=== PATIENT | female | born 1965 | race Caucasian/White ===

== ENCOUNTER → 2022-09-04 15:19 | Outpatient (REF) | payer OTHER, SELFPAY ==
--- NOTE | 2022-09-04 15:25 | CA_ITS ---
Transthoracic Echocardiogram Patient (Last, First, Middle): Nilsa Leung, Gender: Female Date of : 1965 Age: 57 Procedure Date: 09/04/2022 Procedure Type: Transthoracic Echocardiogram Location: OP Height: 162.56 cm Weight: 68.95 kg BSA: 1.74 m2 Heart Rate: bpm BP: 142 / 86 mmHg Web Pressman: DANIEL Referring MD: Fuad Wallis MD Symptoms: R07.2 - Precordial pain Study Quality: Adequate ECG Rhythm: Sinus Conclusions: - The left ventricular systolic function is normal. The calculated ejection fraction is 62% by biplane method. - No obvious valvular pathology seen on this study. Findings Left Ventricle Normal left ventricular cavity size. The left ventricular systolic function is normal. The calculated ejection fraction is 62% by biplane method. There is no evidence of regional wall motion abnormalities. Diastolic function is normal for age. There is mild septal and mild basal asymmetric hypertrophy. LV peak GLS -18.7%. Right Ventricle Normal right ventricular cavity size and systolic function. Atria Both atria are normal in size. Aortic Valve There is a normal trileaflet aortic valve. There is no aortic valve stenosis. There is no aortic valve regurgitation. Mitral Valve The mitral valve appears normal. There is trace mitral valve regurgitation. There is no mitral valve stenosis. Pulmonic Valve The pulmonic valve is likely normal. Tricuspid Valve Normal tricuspid valve structure. There is trace tricuspid valve regurgitation. There is no evidence of pulmonary hypertension. Great Vessels The aortic annulus, sinuses of valsalva, and asc aorta are normal in size. Venous The inferior vena cava is normal in size and collapses greater than 50% with inspiration. Pericardium/Pleural There is no evidence of pericardial effusion. Prior Study Comparison No prior study available for comparison. Recommendations, Care & Conclusions No obvious valvular pathology seen on this study. Measurements 2D Linear Measurements IVSd: 1.03 0.6-0.9/0.6-1.0 cm LVIDd: 3.93 3.9-5.3/4.2-5.9 cm LVIDd Index: 2.26 2.4-3.2/2.2-3.1 cm/m2 LVIDs: 2.93 2.0-3.6 cm LVPWd: 1.00 0.7-1.1 cm LA Diam: 3.10 2.7-3.8/3.0-4.0 cm LAIDs Index: 1.78 1.5-2.3 cm/m2 LV Mass: 157.05 67-162/88-224 g LV Mass Index: 90.26 43-95/49-115 g/m2 LVOT Diam: 1.80 3.0+(-)1.3 cm 2D Systolic Function EF 4C: 60.10 >55% EF 2C: 61.80 >55% EF BiP: 61.60 >55% Mitral Valve MV Pk E: 0.82 MV PK A: 0.97 MV Decel Time: 235.00 E/A: 0.80 E'Lateral: 9.90 E'Medial: 7.62 E/E' Med: 10.70 E/E' Lat: 8.30 PHT: 69.00 MVA PHT: 3.19 Decel [place]: 3.49 Aortic Valve AoV Pk Cameron: 1.46 AoV Mn Cameron: 0.98 AoV VTI: 0.35 AoV Pk Grad: 9.00 Aov Mn Grad: 4.00 JL Cont.VTI: 1.89 LVOT LVOT Pk Cameron: 1.16 LVOT Mn Cameron: 0.81 LVOT VTI: 0.26 LVOT Pk Grad: 5.00 LVOT Mn Grad: 3.00 LVOT Diam: 1.80 LVOT Area: 2.54 Diastolic Function MV Pk E: 0.82 MV Pk A: 0.97 E/A: 0.80 E'Medial: 7.62 E/E' Med: 10.70 E' Laterial: 9.90 E/E' Lat: 8.30 Right Ventricle TAPSE (mm): 27.30 TVS' Cameron: 12.30 Tricuspid Valve TR Pk Cameron: 1.66 TR Pk Grad: 11.00 RA Press: 3.00 RVSP: 14.00 Great Vessels Aorta Sinus of Valsalva: 2.96 2.0-3.[address] [place]: 2.19 1.7-3.4 cm Ao Asc: 3.10 2.1-3.4 cm Ao Arch: 2.90 Updated in Other Vendor System with Status of Final Fuad Wallis MD electronically signed on 09/05/2022 8:44:01 AM with status of Final
== END ==
LOC: HO.CARD 15:19
PROVIDERS: PCP Physician Assistant Medical; Visit Provider Internal Medicine
DX: R07.2 Precordial pain (principal)
CPT/HCPCS: 93306; 93356

== ENCOUNTER → 2022-09-05 11:15 | Outpatient (REF) | payer OTHER, SELFPAY ==
--- NOTE | 2022-09-05 11:18 | CA_ITS ---
Acquisition Time: 2022-09-05 11:25:30 Total Exercise Time: 00:12:46 Test Indications: precordial pain Medications: Protocol: DIMITRIS Max HR: 160 BPM 96% of Pred: 165 BPM Max BP: 144/072 mmHG Max Work Load: 14.9 METS Exercise stress test with exercise 12 min 46 sec of Dimitris protocol, acheiving 100% MPHR, without anginals sounding symptoms, with isolated PVC in recovery only, with normotensive response to exercise, with artifact at peak exercise, without EKG changes meeting criteria for ischemia in recovery. Echo images obtained by tech at rest and immediate post peak exercise. Definity contrast used. Test reviewed with Dr Wallis. Referred By: Fuad Wallis Overread By: DARIA DOAN
== END ==
LOC: HO.CARD 11:15
PROVIDERS: PCP Physician Assistant Medical; Visit Provider Internal Medicine
DX: R07.2 Precordial pain (principal)
CPT/HCPCS: 93005; 93350; Q9957

== ENCOUNTER 2022-09-26 14:21 | Outpatient (REF) | payer OTHER, SELFPAY ==
[2022-09-26 16:06] LABS: Anion Gap 13 (12-20); Blood Urea Nitrogen 16 mg/dL (9-16); Calcium 9.4 mg/dL (8.4-10.2); Carbon Dioxide 28 mmol/L (22-29); Chloride 103 mmol/L (96-108); Estimated Glomerular Filt Rate > 60; Glucose Random 81 mg/dL (60-115); Potassium 4.5 mmol/L (3.3-5.1); Sodium 139 mmol/L (135-145)
== END 2022-09-26 14:22 | disposition home or self-care (01) ==
LOC: HO.LAB 14:21
PROVIDERS: PCP Physician Assistant Medical; Visit Provider Internal Medicine
DX: R07.2 Precordial pain (principal)
CPT/HCPCS: 36415; 80048

== ENCOUNTER 2022-10-09 10:35 | Outpatient (REF) | payer OTHER, SELFPAY ==
--- NOTE | ~2022-10-09 | XR_ITS ---
EXAMINATION: XR PELVIS CLINICAL INFORMATION: M25.559 - Pain in unspecified hip COMPARISON: None TECHNIQUE: AP view of the pelvis. FINDINGS: No fracture, dislocation, destructive process. The SI joints and pubis show no diastases. Bowel gas unremarkable. There are osteoarthritic changes left hip with hip joint narrowing and mild subchondral sclerosis. No erosive change. There are osteophytes at base femoral head. Right hip is unremarkable. XR/XR pelvis 1-2V IMPRESSION: Osteoarthritis left hip.
== END 2022-10-09 10:36 | disposition home or self-care (01) ==
LOC: HO.HOSX 10:35
PROVIDERS: Visit Provider Orthopaedic Surgery
DX: M16.12 Unilateral primary osteoarthritis, left hip (principal)
CPT/HCPCS: 72170

== ENCOUNTER 2022-12-18 14:28 | Outpatient (REF) | payer OTHER, SELFPAY ==
--- NOTE | ~2022-12-18 | MM_ITS ---
EXAMINATION: MM SCREENING DIGITAL BREAST TOMOSYNTHESIS, BILATERAL CLINICAL INFORMATION: Screening. Asymptomatic. The lifetime risk of breast cancer based on the Tyrer-Cuzick Model is 9.8%. COMPARISON: Mammography: 11/21/2021 and studies dating back to 09/30/2019. TECHNIQUE: Digital breast tomosynthesis is performed in both the craniocaudal and mediolateral oblique views along with computer-aided detection (CAD). Synthesized 2D images are generated from the tomosynthesis. FINDINGS: The breasts are extremely dense, which lowers the sensitivity of mammography (ACR BI-RADS breast composition Category d). There appears be a region of increased density without suspicious microcalcifications about the superior aspect of the left breast on mediolateral oblique projection. No specific mass is appreciated; however, the density is more prominent and spot compression film as well as 90 degree mediolateral view is recommended to ensure no underlying mass is present. There is a stable parenchymal pattern of the right breast. MM/MM tomosynthesis screening BI IMPRESSION: Increasing density superior aspect of the left breast for further evaluation as described. ASSESSMENT: BI-RADS 0: Incomplete - Need Additional Imaging Evaluation RECOMMENDATION: 1. Additional views of the left breast. 2. Targeted ultrasound if warranted after review of the additional views. 3. Radiology department staff will contact the patient for additional imaging. This patient's information was entered into a reminder system with a target due date for their next mammogram.
== END 2022-12-18 14:29 | disposition home or self-care (01) ==
LOC: HO.MAMMO 14:28
PROVIDERS: PCP Physician Assistant Medical; Visit Provider Physician Assistant Medical
DX: Z12.31 Encounter for screening mammogram for malignant neoplasm of breast (principal)
CPT/HCPCS: 77063; 77067

== ENCOUNTER → 2022-12-25 09:02 | Outpatient (BNVA) | payer OTHER, SELFPAY | PROVIDERS: PCP Physician Assistant Medical; Referring Provider Physician Assistant Medical; Visit Provider Internal Medicine | DX: Z13.89 Encounter for screening for other disorder (principal) ==

== ENCOUNTER 2022-12-26 12:58 | Outpatient (REF) | payer OTHER, SELFPAY ==
--- NOTE | ~2022-12-26 | MM_ITS ---
EXAMINATION: MM DIAGNOSTIC DIGITAL BREAST TOMOSYNTHESIS, LEFT CLINICAL INFORMATION: Question increasing density superior aspect of the left breast COMPARISON: Mammography: December 18, 2022 and studies dating back to September 30, 2019 TECHNIQUE: Digital breast tomosynthesis is performed. 2D images are generated from the tomosynthesis. The following views are obtained: 90 degree mediolateral view and spot compression mediolateral oblique view of the left breast. FINDINGS: The breasts are extremely dense, which lowers the sensitivity of mammography (ACR BI-RADS breast composition Category d). Additional views show no significant mass, architectural abnormality, or abnormal calcifications. Appearance is similar to prior studies. Results are provided to the patient at time of visit by the technologist. MM/MM tomosynthesis added views L IMPRESSION: No mammographic evidence of malignancy. ASSESSMENT: BI-RADS 1: Negative RECOMMENDATION: Routine annual mammography screening due in 12 months. This patient's information was entered into a reminder system with a target due date for their next mammogram.
== END 2022-12-26 12:59 | disposition home or self-care (01) ==
LOC: HO.MAMMO 12:58
PROVIDERS: Visit Provider Physician Assistant Medical
DX: R92.8 Other abnormal and inconclusive findings on diagnostic imaging of breast (principal)
CPT/HCPCS: 77061; 77065

== ENCOUNTER 2023-03-16 12:30 | Outpatient (REF) | payer OTHER, SELFPAY ==
[2023-03-16 14:22] LABS: Alanine Aminotransferase 24 U/L (0-31); Albumin Level 4.3 g/dL (3.5-5.0); Alkaline Phosphatase 54 U/L (39-117); Aspartate Amino Transferase 30 U/L (5-31); Bilirubin Direct 0.2 mg/dL (0.0-0.5); Bilirubin Total 0.9 mg/dL (0.0-1.0); Cholesterol 187 mg/dL; HDL Cholesterol 69 mg/dL; LDL Cholesterol Calculated 108 mg/dl; Total Protein 6.8 g/dL (6.5-8.0); Triglycerides 50 mg/dL
== END 2023-03-16 12:31 | disposition home or self-care (01) ==
LOC: HO.LAB 12:30
PROVIDERS: PCP Physician Assistant Medical; Visit Provider Internal Medicine
DX: E78.5 Hyperlipidemia, unspecified (principal); I25.10 Atherosclerotic heart disease of native coronary artery without angina pectoris
CPT/HCPCS: 36415; 80061; 80076

== ENCOUNTER 2023-06-12 09:25 | Outpatient (AMB) | payer OTHER, SELFPAY ==
--- NOTE | 2023-06-12 09:22 | MHC.OFFVIS ---
Intake Intake Visit Reasons: OV-Left hip pain injection Intake Note: Nilsa is a 58 year old who presents today for a follow up of her left hip OA. She was last sent for a DEXA scan, she reports that she did not get this can done. Patient reports that she has been having increased pain over the last few months. She has pain with sitting, specifically prolonged sitting. Her pain has been affecting her knee and lower back now. Ibuprofen has been helping. Allergies Penicillins Allergy (Intermediate, Verified 12/25/22 09:06) Hives tramadol Adverse Reaction (Intermediate, Verified 12/25/22 09:06) Hives HPI OV-Left hip pain injection HPI Details [place] is a 58 year old woman with left hip OA who presents with complaints of [ ]. She works for the [employer]. She continues to have pain with daily and weight-bearing activity, which is now worse with prolonged sitting activities. She says her pain is deep hip and groin but is now causing pain in her knee and lower back. She stays active, and finds relief or increased pain depending on the exercises she perform. She says Ibuprofen is no longer helping her. At her last appointment a DEXA scan was ordered but she says she did not complete this scan. She says she does spin classes for exercise and is able to walk 4-5 miles a day before having to stop. She works for the [employer] and says she has to climb 5 flights of stairs every day to get to her office, there is no elevator access. 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 She has good motion but sharp reproduceable pain with hip internal rotation Psych Appearance: grossly normal Affect: normal affect Attitude: cooperative Results Reviewed Results Reviewed: I personally reviewed relevant radiographs. Moderate left hip OA Assessment & Plan Assessment & Plan (1) Arthritis of left hip: Code(s): M16.12 - Unilateral primary osteoarthritis, left hip Plan: This is a 58 year old woman with moderate left hip OA. She has pain with daily and weight-bearing activity, worse at night when lying on her side, and localized in the groin. She stays active with exercise, mostly prolonged ambulation or stationary cycling, but says this causes her increased pain at the end of the day. She denies any prior treatment. I discussed her diagnosis and treatment options. I recommend hip arthroplasty when she feels that the quality of her life is severely diminished. In the meantime activity as tolerated. Injections can be considered. She will let me know how and if she would like to proceed with any of the above options. Plan Prepped for Gokul Desouza MD by Jeremi Hargrove, medical coding auditor, on 06/12/23. Coding Level of Care Code Est Pt Level 4 (62836) Diagnoses Arthritis of left hip M16.12
== END 2023-06-12 10:00 | disposition home or self-care (01) ==
PROVIDERS: PCP Physician Assistant Medical; Visit Provider Orthopaedic Surgery
DX: M16.12 Unilateral primary osteoarthritis, left hip (principal)
CPT/HCPCS: 99214

== ENCOUNTER → 2023-06-12 09:25 | Outpatient (BNVA) | payer OTHER, SELFPAY | PROVIDERS: PCP Physician Assistant Medical; Visit Provider Orthopaedic Surgery ==

== ENCOUNTER 2023-06-23 11:22 | Outpatient (AMB) | payer OTHER, SELFPAY ==
--- NOTE | 2023-06-23 11:39 | A.OFFVIS_ITS ---
Intake Vital Signs 06/23/23 11:47 Height 5 ft 4 in Weight 159 lb BMI 27.3 Intake Visit Reasons: OV- LT hip eval, surgery discussion Intake Note: Nilsa 58 yr old female presents today for a second opinion for her left hip pain. She describes her pain as sharp and severe in nature. Most of the pain is located within the lateral and anterior aspects of her left hip. She has tried Tylenol and anti-inflammatory medicines which gave her minimal relief. Her pain has gotten worse over the last few years in spite of continued non operative treatments. She has done physical therapy which aggravated her pain. The patient has difficulty walking even short distances because of her pain. At this point her left hip pain is interfering with her activities of daily living and her ability to sleep well through the night. Allergies Penicillins Allergy (Intermediate, Verified 06/23/23 11:47) Hives tramadol Adverse Reaction (Intermediate, Verified 06/23/23 11:47) Hives Medication List - Last Reconciled 06/23/23 by Bear Bell MD multivitamin 1 tab PO DAILY nitroglycerin 0.4 mg sublingual Q5M PRN valacyclovir 1,000 mg PO DAILY PRN PFSH Medical History (Updated 06/23/23 @ 12:31 by Bear Bell MD) Atherosclerotic cardiovascular disease Surgical History No pertinent past surgical history Family History Father Heart attack Lung cancer History of quadruple bypass Mother Afib H/O heart artery stent S/P ablation of atrial fibrillation Social History Alcohol intake: current Alcohol intake frequency: a few times a month Patient Tobacco Use Status: Never used Tobacco Current occupational status: employed 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 Exam Vital Signs: BMI result Body Mass Index 27.3 Const Other: Well-nourished well-developed very friendly female awake alert and oriented x3 in no acute distress Extrem Other: Bilateral lower extremity examination shows good capillary refill, no skin lesions noted, normal sensation light touch Left hip examination shows decreased range of motion when compared to her right hip, pain with range of motion, tenderness over her bursa, no overlying skin lesions Office Procedures Joint Injection/Drain Joint Injection/Drain Primary Site: other (Left hip greater trochanteric bursa) Prep: site was prepped using aseptic technique Injected: 40 mg of and Kenalog Procedure: The patient tolerated the procedure well Coding - Large joint Procedure code (CPT) selection complete Results Reviewed Results Reviewed: 06/23/23 12:10 Lidocaine HCl 2 % MPF [Xylocaine 2 % MPF] 5 ml .ROUTE .STK-MED ONE Triamcinolone Acetonide [Kenalog-40] 40 mg .ROUTE .STK-MED ONE X-rays of the patient's left hip show severe joint space narrowing, subchondral sclerosis, osteophyte formation, no acute bony abnormalities Assessment & Plan Assessment & Plan (1) Trochanteric bursitis, left hip: Code(s): M70.62 - Trochanteric bursitis, left hip (2) Arthritis of left hip: Code(s): M16.12 - Unilateral primary osteoarthritis, left hip Plan Ms. Leung presents with left hip pain due to severe degenerative joint disease as well as greater trochanteric bursitis. I had a lengthy discussion with the patient regarding the treatment options. The risks and benefits of a left hip bursa cortisone injection were discussed at length with the patient. The patient wished to proceed. She tolerated the injection well. I also gave her a prescription for a Medrol Dosepak should her symptoms not improve over the next week. If the patient does not get lasting relief from the injection and Medrol Dosepak she is considering undergoing left total hip replacement surgery later this year or early next year. She will contact my office to pick a surgery date if she chooses to do so. Otherwise she will follow-up on an as- needed basis. Feel free to call me at any time should questions regarding her orthopedic management arise. I spent 22 minutes in reviewing the patient's records and imaging studies, seeing the patient and documenting in the medical record. Orders: Orders AMB Joint Injection/Aspiration Today M70.62 - Trochanteric bursitis, left hip Medications: New methylprednisolone (Medrol ([place])) PO PER PKG DIR 21 ea 0RF Coding Level of Care Code Est Pt Level 2 (47814) Diagnoses Trochanteric bursitis, left hip M70.62 Arthritis of left hip M16.12 CPT Codes Coding - Large joint: 73344 - Large joint ([id number])
[2023-06-23 11:47] VITALS: BMI 27.3
== END 2023-06-23 12:30 | disposition home or self-care (01) ==
PROVIDERS: PCP Physician Assistant Medical; Visit Provider Orthopaedic Surgery
DX: M70.62 Trochanteric bursitis, left hip (principal); M16.12 Unilateral primary osteoarthritis, left hip
CPT/HCPCS: 20610; 99212

== ENCOUNTER → 2023-06-23 11:22 | Outpatient (BNVA) | payer OTHER, SELFPAY | PROVIDERS: PCP Physician Assistant Medical; Visit Provider Orthopaedic Surgery | DX: M70.62 Trochanteric bursitis, left hip (principal); M16.12 Unilateral primary osteoarthritis, left hip | CPT/HCPCS: 20610; J3301 ==

== ENCOUNTER 2023-07-27 07:38 | Outpatient (REF) | payer OTHER, SELFPAY ==
[2023-07-27 08:49] LABS: Alanine Aminotransferase 19 U/L (0-31); Albumin Level 4.4 g/dL (3.5-5.0); Alkaline Phosphatase 48 U/L (39-117); Anion Gap 11 (12-20); Aspartate Amino Transferase 26 U/L (5-31); Bilirubin Total 0.7 mg/dL (0.0-1.0); Blood Urea Nitrogen 14 mg/dL (9-16); Calcium 9.6 mg/dL (8.4-10.2); Carbon Dioxide 28 mmol/L (22-29); Chloride 107 mmol/L (96-108); Cholesterol 201 mg/dL (<200); Estimated Glomerular Filt Rate > 60; Glucose Random 97 mg/dL (60-115); HDL Cholesterol 62 mg/dL (>40); LDL Cholesterol Calculated 126 mg/dL (<100); Potassium 3.9 mmol/L (3.3-5.1); Sodium 142 mmol/L (135-145); Triglycerides 68 mg/dL (<150)
[2023-07-27 08:51] LABS: Thyroid Stimulating Hormone 3.49 uIU/mL (0.32-4.0)
== END 2023-07-27 07:39 | disposition home or self-care (01) ==
LOC: HO.LAB 07:38
PROVIDERS: PCP Physician Assistant Medical; Visit Provider Physician Assistant Medical
DX: E78.5 Hyperlipidemia, unspecified (principal); Z83.49 Family history of other endocrine, nutritional and metabolic diseases
CPT/HCPCS: 36415; 80053; 80061; 84443

== ENCOUNTER → 2023-09-30 13:26 | Outpatient (BNVA) | payer OTHER, SELFPAY | PROVIDERS: PCP Physician Assistant Medical; Visit Provider Orthopaedic Surgery ==

== ENCOUNTER 2023-10-07 11:42 | Outpatient (REF) | payer OTHER, SELFPAY ==
[2023-10-07 12:27] LABS: MANUAL DIFF FLAG NO
[2023-10-07 12:59] LABS: Basophils Percent Auto 0.5 % (0-2); Eosinophils Absolute Auto 0.1 X10*3/uL (0.0-0.4); Eosinophils Percent Auto 1.3 % (0-4); Hematocrit 41.1 % (37.0-47.0); Hemoglobin 13.2 g/dl (12.0-16.0); Imm Gran Abs Auto 0.01 X10*3/uL (0.00-0.03); Imm Gran Pct Auto 0.1 % (0.0-0.4); Lymphocytes Absolute Auto 2.5 X10*3/uL (1.2-4.9); Lymphocytes Percent Auto 33.7 % (20-40); Mean Corpuscular HGB Conc 32.1 g/dl (31.0-35.0); Mean Corpuscular Hemoglobin 26.5 pg (27.0-33.0); Mean Corpuscular Volume 82.4 fL (80.0-98.0); Mean Platelet Volume 10.4 fL (9.4-12.3); Monocytes Absolute Auto 0.6 X10*3/uL (0.1-1.2); Monocytes Percent Auto 7.6 % (2-11); Neutrophils Absolute Auto 4.3 x10*3/uL (2.0-8.3); Neutrophils Percent Auto 56.8 % (45-73); Platelet Count 265 X10*3/uL (160-400); Red Blood Count 4.99 X10*6/uL (4.20-5.50); Red Cell Distribution Width 13.7 % (11.0-16.0); White Blood Count 7.5 X10*3/uL (4.8-10.8)
[2023-10-07 13:12] LABS: Estimated Average Glucose 100 mg/dL; Hemoglobin A1c % 5.1 % (<6.0)
[2023-10-07 13:58] LABS: Anion Gap 9 (12-20); Blood Urea Nitrogen 18 mg/dL (9-16); Calcium 9.3 mg/dL (8.4-10.2); Carbon Dioxide 30 mmol/L (22-29); Chloride 108 mmol/L (96-108); Estimated Glomerular Filt Rate > 60; Glucose Random 82 mg/dL (60-115); Sodium 143 mmol/L (135-145)
== END 2023-10-07 11:43 | disposition home or self-care (01) ==
LOC: HO.LAB 11:42
PROVIDERS: PCP Physician Assistant Medical; Visit Provider Student in an Organized Health Care Education/Training Program
DX: Z01.818 Encounter for other preprocedural examination (principal)
CPT/HCPCS: 36415; 80048; 83036; 85025

== ENCOUNTER 2023-10-28 08:17 | Outpatient (AMB) | payer OTHER, SELFPAY ==
[2023-10-28 08:21] VITALS: BMI 27.3
--- NOTE | 2023-10-28 08:21 | MHC.OFFVIS ---
Intake Vital Signs 10/28/23 08:21 Height 5 ft 4 in Weight 159 lb BMI 27.3 Intake Visit Reasons: Preop LT SADI 11/02/23 DR Sutton Note: Nilsa 58 yr old female presents today with complaints of progressively worsening left hip pain. She describes her pain as sharp and severe in nature. Most of the pain is located within the lateral and anterior aspects of her left hip. She has tried Tylenol and anti-inflammatory medicines which gave her minimal relief. Her pain has gotten worse over the last few years in spite of continued non operative treatments. She has done physical therapy which aggravated her pain. The patient has difficulty walking even short distances because of her pain. At this point her left hip pain is interfering with her activities of daily living and her ability to sleep well through the night. Allergies Penicillins Allergy (Intermediate, Verified 10/28/23 08:40) Hives tramadol Adverse Reaction (Intermediate, Verified 10/28/23 08:40) Hives [facility] Medical History Osteoarthritis Atherosclerotic cardiovascular disease Surgical History Hx of colonoscopy Family History Father Heart attack Lung cancer History of quadruple bypass Mother Afib H/O heart artery stent S/P ablation of atrial fibrillation Social History Household Members: Children Housing: House Are you a primary career and transition teacher to a significant other at home: No Do you presently have visiting nurse or other home services: No Alcohol intake: current Alcohol intake frequency: a few times a month Patient Tobacco Use Status: Never used Tobacco Use of substances other than those prescribed or required for medical reasons: No Have you been hit, kicked, punched, or otherwise hurt by someone within the past year? 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 Vital Signs: BMI result Body Mass Index 27.3 Const Other: Well-nourished well-developed very friendly female awake alert and oriented x3 in no acute distress Lungs - clear to auscultation bilaterally with symmetric expansion Cardiovascular exam - regular rate and rhythm Abdominal exam - soft nontender nondistended Extrem Other: Bilateral lower extremity examination shows good capillary refill, no skin lesions noted, normal sensation light touch Left hip examination shows decreased range motion when compared to her right hip, pain with range, no tenderness over her bursa Results Reviewed Results Reviewed: X-rays of the patient's left hip show end-stage degenerative joint disease with grade 4 [id number]-[id number] arthritis, subchondral sclerosis, no acute bony abnormalities Assessment & Plan Assessment & Plan (1) Osteoarthritis of left hip: Code(s): M16.12 - Unilateral primary osteoarthritis, left hip Plan Ms. Leung presents with progressively worsening left hip pain due to end-stage degenerative joint disease. I had a lengthy discussion with the patient regarding the treatment options. At this point she has failed continued non operative treatments. The risks and benefits of left total hip replacement surgery were discussed at length with the patient. The patient wishes to proceed with surgery. oil well services dispatcher will be consulted following her surgery for home physical therapy and nursing. The patient will follow-up as instructed. Feel free to call me at any time should questions regarding her orthopedic management arise. I spent 20 minutes in reviewing the patient's records and imaging studies, seeing the patient and documenting in the medical record. Coding Level of Care Code Est Pt Level 2 (72766) Diagnoses Osteoarthritis of left hip M16.12
== END 2023-10-28 09:06 | disposition home or self-care (01) ==
PROVIDERS: PCP Physician Assistant Medical; Visit Provider Orthopaedic Surgery
DX: M16.12 Unilateral primary osteoarthritis, left hip (principal)
CPT/HCPCS: 99024

== ENCOUNTER → 2023-10-28 08:17 | Outpatient (BNVA) | payer OTHER, SELFPAY | PROVIDERS: PCP Physician Assistant Medical; Visit Provider Orthopaedic Surgery ==

== ENCOUNTER 2023-11-02 06:14 | Inpatient (IN) | payer OTHER, SELFPAY ==
[2023-10-23 12:05] VITALS: BP 150/89; PULSE 62; RESP 16; O2SAT 99; BMI 28.3
[2023-10-23 14:14] LABS: MRSA Nasal PCR NEGATIVE (Negative); SA Nasal PCR NEGATIVE (Negative)
[2023-11-02] VITALS (15 sets, daily range): BP systolic 105–146; BP diastolic 52–71; PULSE 53–85; RESP 10–20; TEMP 36–36.8; O2SAT 94–100; BMI 27.3
--- NOTE | ~2023-11-02 | XR_ITS ---
EXAMINATION: XR PELVIS CLINICAL INFORMATION: Left total hip arthroplasty COMPARISON: 10/09/2022 TECHNIQUE: AP view of the pelvis. FINDINGS: Alignment is normal. The left femoral head prosthesis is well centered within the acetabular cup, which exhibits normal lateral version and is stabilized by a superior screw. The tip of the noncemented femoral stem is well-positioned in the medullary cavity of the proximal femoral diaphysis. A single intact cable wire encircles the subtrochanteric region of the proximal femur. No endosteal scalloping or fracture around the femoral stem. There is postoperative soft tissue emphysema of the left hip region. Skin brandon project lateral to the hip. The right hip is unremarkable. XR/XR pelvis 1-2V IMPRESSION: Satisfactory position and alignment of components of the left total hip arthroplasty. No periprosthetic fracture.
--- OUTSIDE RECORDS SUMMARY | 2023-11-02 06:16 | XMS_ITS | Patient Health Record ---
Author Name Unknown [facility] Address [address] [place] [address] Care Team Providers Care Contract Clerk Automobile Name Role Phone Miri Patrick PA-C Primary Care Provider Unav ailable Black, Jasmyn Unavailable [phone] ALLERGIES Allergen (clinical drug ingredient) Drug/Non Drug Allergy documented on EMR Reaction Allergy Type Onset Date Status Penicillin hives Drug Allergy Active REASON FOR REFERRAL No Information MEDICATIONS Medication SIG (Take, Route, Frequency, Duration) Notes Start Date End Date Status valACYclovir HCl Act amber Ibuprofen PRN Active Multi Vitamin/Minerals Active Calcium 500mg Not-Ta chiquita Vitamin C Not-Taking Aleve 220 MG 1 tablet as needed O rally every 12 hrs PRN Active SOCIAL HISTORY Tobacco Use: Social History Observation Description Date Details (start date - stop date) Never Smoker NA - NA Sex Assigned At : Social History Observation Description Sex Assigned At Unknown Tobacco Use/Smoking Question Answer Notes Are you a: nonsmoker Additional Findings: Tobacco Non-User Current no n-smoker Alcohol Screen Question Answer Notes Did you have a drink contain ing alcohol in the past year? Yes How often did you have a dri nk containing alcohol in the past year? Monthly or less (1 point) Points 1 Interpretation Negative Tobacco use other than smoking: Question Answer Notes Are you an other tobacco user? No PROBLEMS Problem Type ICD Code Onset Dates Problem Status W/U Status Risk SNOMED Code Notes Problem Other hammer toe(s) (acquired), right foot (M20.41) Active confirmed Acquired hammer toe of right foot ([id number]) Problem Arthritis of joint of lesser toe, right (M19.071) Active confirmed Localized, prim anastasia osteoarthritis of the ankle and/or foot ([id number]) VITAL SIGNS Blood pressure diastolic 70 mm Hg 10/08/2023 Height 5 ft 5 in in 10/08/2023 Blood pressure systolic 130 mm Hg 10/08/2023 Weight 165 lbs 10/08/2023 BMI 27.45 kg/m2 10/08/2023 Encounters Encounter Location Date [facility] [address] [address] [place] [address] [facility]/16/2023 [facility] [address] 07/16/[address] [address] 10/08/2023 Jasmyn Galvez Pain in right toe(s) M79.674 ; Other hammer toe(s) (acquired), right foot M20.41 ; Arthritis of joint of lesser toe, right M19.071 ; Subluxation of metatarsophalangeal joint of toe, initial encounter S93.149A and Hallux valgus, right M20.[address] [address] 10/08/2023 Jasmyn Galvez ASSESSMENTS Encounter Date Diagnosis Assessment Notes Treatment Notes Treatment Clinical Notes 10/08/2023 Pain in right toe(s) (ICD-10 - M79.674) 10/08/2023 Other hammer toe(s) (acquired), right foot (ICD-10 - M20.41) 10/08/2023 Arthritis of joint o f lesser toe, right (ICD-10 - M19.071) 10/08/2023 Subluxation of metatarsophalangeal joint of toe, initial encounter (ICD-10 - S93.149A) 10/08/2023 Hallux valgus, right (ICD-10 - M20.11) PLAN OF TREATMENT Pending Test Test Name Order Date X ray : Ankle, left 3V 08/19/2011 X ray : Foot, left 2V 08/03/2012 X ray : Foot, left 2V 08/19/2011 X ray : Foot, left 3V 06/24/2012 [id number], [id number], JOINT/BURSA 1 Next Appt Details Provider Name:Jasmyn Galvez , 01/07/2024 09:30:00 AM, [address] [place], [address], Insurance Providers Payer Name Payer Address Payer Phone Subscriber Number Group Number Insured Name Patient Relationship to Insured Coverage Start Date Coverage End Date [employer] Benefits [address] [address] [place] [address] [id number] Nilsa Leung Self - patient is the insured MEDICAL (GENERAL) HISTORY Medical History History ICD Code back, hip, knee pain chicken pox Surgical History Surgery Date(Month/Year) wisdom teeth extraction colonoscopy
[2023-11-02] MEDS: Lactated Ringers 1,000 ML 100 ML IVCONT ×2 (06:28→16:25)
--- NOTE | 2023-11-02 06:34 | PHA.MEDREC ---
Pharmacy Consult ? Medication Reconciliation Pharmacy has completed the medication reconciliation. Reviewed med rec done by nursing
[2023-11-02] MEDS: oxyCODONE HCl ER 10 MG TAB.ER.12H PO ×2 (07:00→19:41)
--- NOTE | 2023-11-02 07:15 | HO.ANESPROP2 ---
Documented by User: Jennifer Ivey NP 10/23/23 12:36 HPI - Anesthesia Eval Consult details Narrative: 58yo F for Left Hip Total Replacement PCP cleared NO recent illness No CP/SOB with exercise Negative w/u for chest pain in 2021. [facility] Active Problems Active Problems: All Active Problems (Updated 10/06/23 @ 08:27 by Cinthia Long PA-C) Osteoarthritis of left hip (Acute) Trochanteric bursitis, left hip (Acute) Atherosclerotic cardiovascular disease (Acute) Arthritis of left hip (Acute) Precordial chest pain (Acute) Past Medical History Medical History Osteoarthritis Atherosclerotic cardiovascular disease Family History Family History Father Heart attack Lung cancer History of quadruple bypass Mother Afib H/O heart artery stent S/P ablation of atrial fibrillation Family history of problems with anesthesia: No Surgical History Surgical History Hx of colonoscopy History of Problems with Anesthesia: No Social History Social History Household Members: Children Housing: House Are you a primary senior care assistant to a significant other at home: No Do you presently have visiting nurse or other home services: No Alcohol intake: current Alcohol intake frequency: a few times a month Patient Tobacco Use Status: Never used Tobacco Use of substances other than those prescribed or required for medical reasons: No Have you been hit, kicked, punched, or otherwise hurt by someone within the past year? 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 Allergies Allergy/AdvReac Type Severity Reaction Status Date / Time Penicillins Allergy Intermediate Hives Verified 11/02/23 06:18 tramadol AdvReac Intermediate Hives Verified 11/02/23 06:18 Home Medications Medication Instructions Recorded Confirmed Last Taken Type multivitamin 1 tab PO DAILY 09/04/22 10/23/23 Unknown History valacyclovir 1 gram tablet 1,000 mg PO DAILY PRN Cold Sores 06/12/23 10/23/23 Unknown History fiber tab PO 10/23/23 Unknown History Exam Height,Weight and Vital Signs: Height 5 ft 4 in Weight 74.843 kg Last Vital Signs Pulse 62 10/23/23 12:05 Resp 16 10/23/23 12:05 BP 150/89 H 10/23/23 12:05 Pulse Ox 99 10/23/23 12:05 O2 Del Method Room Air 10/23/23 12:05 Pertinent Lab Results Pertinent Lab Results: Laboratory Tests 10/07/23 12:26 WBC 7.5 Hgb 13.2 Hct 41.1 Plt Count 265 Sodium 143 Potassium 4.0 Chloride 108 Carbon Dioxide 30 H BUN 18 H Creatinine 0.83 Airway Mallampati Class: II TM Dist: >3cm Neck ROM: Full Loose/Missing/Broken Teeth: No (Crowned molars) Heart: RRR Lungs: CTAB Assessment and Plan Assessment Anesthesia Assessment: Anesthesia Plan Discussed and PAT Visit Final Anesthetic Review Family History of Problems with Anesthesia: No History of Problems with Anesthesia: No Documented by User: Carly Gonzales DO 11/02/23 07:20 [facility] Past Medical History Medical History Osteoarthritis Atherosclerotic cardiovascular disease Family History Family History Father Heart attack Lung cancer History of quadruple bypass Mother Afib H/O heart artery stent S/P ablation of atrial fibrillation Family history of problems with anesthesia: No Surgical History Surgical History Hx of colonoscopy History of Problems with Anesthesia: No Social History Social History Household Members: Children Housing: House Are you a primary senior care assistant to a significant other at home: No Do you presently have visiting nurse or other home services: No Alcohol intake: current Alcohol intake frequency: a few times a month Patient Tobacco Use Status: Never used Tobacco Use of substances other than those prescribed or required for medical reasons: No Have you been hit, kicked, punched, or otherwise hurt by someone within the past year? 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 Allergies Allergy/AdvReac Type Severity Reaction Status Date / Time Penicillins Allergy Intermediate Hives Verified 11/02/23 06:18 tramadol AdvReac Intermediate Hives Verified 11/02/23 06:18 Home Medications Medication Instructions Recorded Confirmed Last Taken Type multivitamin 1 tab PO DAILY 09/04/22 10/23/23 Unknown History valacyclovir 1 gram tablet 1,000 mg PO DAILY PRN Cold Sores 06/12/23 10/23/23 Unknown History fiber tab PO 10/23/23 Unknown History Exam Exam Date and Time: November 02, 2023 0714 Height,Weight and Vital Signs: Height 5 ft 4 in Weight 74.843 kg Last Vital Signs Pulse 62 10/23/23 12:05 Resp 16 10/23/23 12:05 BP 150/89 H 10/23/23 12:05 Pulse Ox 99 10/23/23 12:05 O2 Del Method Room Air 10/23/23 12:05 Height 5 ft 4 in Weight 74.843 kg Vital Signs Pulse Rate 62 10/23/23 12:05 Respiratory Rate 16 10/23/23 12:05 Blood Pressure 150/89 H 10/23/23 12:05 Pulse Oximetry 99 10/23/23 12:05 Oxygen Delivery Method Room Air 10/23/23 12:05 Temperature 97.9 F 11/02/23 06:47 Pulse Rate 53 11/02/23 06:47 Respiratory Rate 18 11/02/23 06:47 Blood Pressure 140/71 H 11/02/23 06:47 Pulse Oximetry 100 11/02/23 06:47 Oxygen Delivery Method Room Air 11/02/23 06:47 Airway Mallampati Class: II TM Dist: >3cm Neck ROM: Full Loose/Missing/Broken Teeth: No (crowned molars) Heart: S1S2 Assessment and Plan Assessment Anesthesia Assessment: Anesthesia Plan Discussed and Chart Reviewed Final Anesthetic Review Family History of Problems with Anesthesia: No History of Problems with Anesthesia: No NPO: Yes ASA Class: II Final Preanesthetic Review: No Changes in Pt Med Stat, Meds/Allgs Chart Reviewed, Consent Obtained/Reviewed and Anes Risks/Benef Reviewed Patient Risk: Low Procedure Risk: Intermediate Anesthetic Plan Anesthetic Plan: GA and Agree w/ Assess. and Plan Disposition: Standard PACU
--- NOTE | 2023-11-02 12:01 | PC.NURSE ---
anesthesia updated patient that she was going to be the second patient today. rested comfortably with phone and TV while waiting.
[2023-11-02] MEDS: ondansetron HCL 4 MG/2 ML VIAL IVPUSH (15:07)
--- NOTE | 2023-11-02 15:07 | P.BOP_ITS ---
Brief Operative Note Date of Service: 11/02/23 Pre-op diagnosis: Left hip degenerative joint disease Post-op diagnosis: same Procedure: Left total hip arthroplasty Implants: Leroy press-fit total hip arthroplasty with an Accolade II femoral stem size 4 with a 132 degree neck-shaft angle, a Biolox ceramic femoral head size 32 with a-4 mm neck, a Trident II Tritanium acetabular component with cluster hole size 50, polyethylene liner size 32D with a 10 degree lip, 2 cancellous bone screws measuring 30 mm in length and 20 mm in length, 1 Max talavera Surgeon: Bear Bell MD Anesthesia: GETA Was an Health Facilities Surveyor used for this Procedure?: Yes Health Facilities Surveyor: Cinthia Long Estimated blood loss (mL): 200 Pathology: other (Left femoral head) Condition: stable Disposition: PACU
[2023-11-02] MEDS: fentaNYL citrate/PF 100 MCG/2 ML VIAL 50 MCG IVPUSH ×2 (15:10→15:15)
--- NOTE | 2023-11-02 15:10 | P.OP_ITS ---
Operative Note Operative Note Date of Service: 11/02/23 Narrative: After the patient was identified as Nilsa Leung and her left hip was initialed by myself the patient was brought to the operating room where general anesthesia via endotracheal tube was induced by the anesthesiologist in routine fashion. Because of the patient's allergy to penicillins she was given 900 mg of IV clindamycin preoperatively for infection prophylaxis. The patient was then gently rolled into the lateral position. An axillary roll was put into place. All bony prominences were well padded. The patient's pelvis was held securely with hip bolsters. The patient's left hip region and lower extremity were prepped and draped in sterile fashion. A #10 scalpel blade was then used to make a curvilinear incision centered over the greater trochanter. The subcutaneous tissues were dissected using electrocautery down to the fascia jemal. The fascia jemal was then split in line with the skin incision using electrocautery. The split in the fascia jemal was curved posteriorly along its cephalad aspect to help prevent injury to the innervation of the tensor fascia jemal muscle. The patient's leg was gently externally rotated. A lateral Lane approach was then taken down to the anterior joint capsule. The anterior half of the vastus lateralis was split 1 cm from its insertion and tagged with #2 Ethibond suture. The anterior 1/3 of the gluteus medius incision was then split using electrocautery and tagged with #2 Ethibond suture. An anterior capsulectomy was then performed using electrocautery. The patient's femoral head was then dislocated anteriorly using a hook and gentle traction. Soft tissues were retracted around the femoral neck. The femoral neck cut was then made using a sagittal saw 1 cm proximal to the lesser trochanter. Our attention was then directed to the acetabulum. The labrum was removed using electrocautery. Soft tissue within the cotyloid notch was removed using electrocautery and a rongeur. The femoral head measured to be a size 44 mm. Thus, reaming was begun with a 44 mm reamer. Reaming was performed at 45 degrees of abduction and 20 degrees of anteversion. Reaming was increased incrementally up to a size 50 reamer. At this point we had reached the medial wall of the acetabulum. The acetabulum was irrigated with copious amounts of normal saline solution via pulse lavage. The final size 50 acetabular component was then impacted into place with 45 degrees of abduction and 20 degrees of anteversion. Two cancellous screws were then placed into the superior position. The anterior screw measured 30 mm in length and the posterior screw measured 20 mm in length. The acetabular component was irrigated with copious amounts of normal saline solution via pulse lavage. The polyethylene liner was then impacted into place with the lip in the posterior-superior position. A small sponge was placed into the acetabular component to protect it during preparation of the proximal femur. Our attention was then directed to the proximal femur. A Dall-Miles cable was placed just distal to the lesser trochanter to help prevent periprosthetic fracture. The patient's leg was then placed into a sterile pouch along the anterior aspect of the surgical suite table. Soft tissues were retracted around the proximal femur. A box cutting osteotome was used to make a groove in the medial aspect of the greater trochanter. Broaching was begun with a size 1 broach. Broaching was increased up to a size 4 broach. The size 4 broach fit well. There was both linear and rotational stability. The broach was removed. The intramedullary canal was irrigated with copious amounts of normal saline solution via pulse lavage. The final implant was impacted into place. There was both rotational and linear stability. The Dall- Miles cable was tightened and cut in routine fashion. A trial size 32 head with a -4 mm neck was put into place. The hip was reduced. Leg lengths were clinically equal. The hip was taken through a full range of motion. There was no instability. The hip was once again dislocated and the patient's leg was placed into the sterile pouch. The trial head was removed. The wound was irrigated with copious amounts of normal saline solution via pulse lavage. The final head was impacted in the place. Leg lengths were clinically equal. Hip was taken through a full range of motion. There was no instability. The pat ient's leg was then placed onto a well-padded Márquez stand. The wound was once again irrigated. The vastus lateralis and tensor fascia jemal tendons were repaired with #2 Ethibond [id number] interrupted suture. The wound was once again irrigated. The fascia jemal was closed with #2 Ethibond [id number] interrupted suture as well as #1 Vicryl [id number] interrupted suture. The wound was once again irrigated. The subcutaneous tissues were closed with 0 Vicryl and 2-0 Vicryl interrupted suture. The skin was closed with skin brandon. Dry sterile dressing was placed over the incis ion. The patient was gently rolled into the supine position. The patient was awoken and extubated in the operating room. The patient was transferred to the recovery room in stable condition.
[2023-11-02] MEDS: HYDROmorphone HCl 0.5 MG/0.5 ML SYRINGE IVPUSH ×4 (15:20→21:26)
--- NOTE | 2023-11-02 16:21 | P.CONHOSP_ITS ---
History of Present Illness Data of Consult Service Date: 11/02/23 Requesting physician: Cinthia Long Primary Care Provider: SHANICE Medina Reason for consult: medical management 58 year old female without any significant past medical history admitted to orhtopedic surgery for OA left hip s/p left lauri with consult placed to hospitalist service for medical management. The patient has previously followed with Dr. Wallis in the past for chest pain with cardiac cta revealing only minimal coronary artery disease, nothing hemodynamically significant. Advised to use nitro prn, possible vasospasm? No substance use, no regular etoh use, no cigarettes. Reports 5/10 pain in the hip, otherwise no complaints. Review of Systems Review of Systems: General: No fevers, malaise, unintentional weight loss HEENT: No blurred vision, diplopia. No sore throat, nasal congestion, rhinorrhe a, sinus pain, ear pain Cardiovascular: No chest pain, palpitations, or leg edema Respiratory: No shortness of breath, wheezing, cough GI: No abdominal pain, nausea, vomiting, diarrhea, constipation, melena, hematochezia : No dysuria, hematuria, increased urinary frequency, decreased urinary output MSK: No myalgia, back pain. +hip pain Neuro: No headaches, weakness, paresthesias Skin: No rashes or lesions [facility] Medical History Osteoarthritis Atherosclerotic cardiovascular disease Family History Father Heart attack Lung cancer History of quadruple bypass Mother Afib H/O heart artery stent S/P ablation of atrial fibrillation Surgical History Hx of colonoscopy Social History Household Members: Children Housing: House Are you a primary career development counselor to a significant other at home: No Do you presently have visiting nurse or other home services: No Alcohol intake: current Alcohol intake frequency: a few times a month Patient Tobacco Use Status: Never used Tobacco Use of substances other than those prescribed or required for medical reasons: No Have you been hit, kicked, punched, or otherwise hurt by someone within the past year? 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 Allergies Allergy/AdvReac Type Severity Reaction Status Date / Time Penicillins Allergy Intermediate Hives Verified 11/02/23 06:18 tramadol AdvReac Intermediate Hives Verified 11/02/23 06:18 Active Medications: Current Medications Acetaminophen (Acetaminophen 325 Mg Tablet) 650 mg PO Q6H PRN PRN Reason: Pain, Mild (Pain Scale 1-3) Aspirin (Aspirin 325 Mg Tablet) 325 mg PO BID DANIEL Celecoxib (Celecoxib 200 Mg Capsule) 200 mg PO BID DANIEL Docusate Sodium (Docusate Sodium 100 Mg Capsule) 100 mg PO BID [facility] Fentanyl (Fentanyl Citrate/Pf 100 Mcg/2 Ml Vial) 50 mcg IVPUSH Q5M PRN; Protocol PRN Reason: Pain, Severe (Pain Scale 7-10) Last Admin: 11/02/23 15:15 Dose: 50 mcg Gabapentin (Gabapentin 100 Mg Capsule) 100 mg PO BEDTIME [facility] Hydromorphone HCl (Hydromorphone Hcl 0.5 Mg/0.5 Ml Syringe) 0.5 mg IVPUSH Q4H PRN; Protocol PRN Reason: Pain, Severe (Pain Scale 7-10) Clindamycin Phosphate (Cleocin) 900 mg in 50 mls @ 50 mls/hr IV Q8H DANIEL Stop: 11/03/23 12:00 Lactated Ringer's (Lr) 1,000 mls @ 100 mls/hr IVCONT .Q10H [facility] Methocarbamol (Methocarbamol 500 Mg Tablet) 500 mg PO TID [facility] Nitroglycerin (Nitroglycerin 0.4 Mg Tab.Subl) 0.4 mg SUBLINGUAL Q5M PRN PRN Reason: chest pain Ondansetron HCl (Ondansetron Hcl 4 Mg/2 Ml Vial) 4 mg IVPUSH Q8H PRN PRN Reason: Nausea and Vomiting Oxycodone HCl (Oxycodone Hcl Immed Release 5 Mg Tablet) 10 mg PO ONCE PRN PRN Reason: Pain, Severe (Pain Scale 7-10) Oxycodone HCl (Oxycodone Hcl Immed Release 5 Mg Tablet) 10 mg PO Q4H PRN PRN Reason: Pain, Moderate(Pain Scale 4-6) Oxycodone HCl (Oxycodone Hcl Immed Release 5 Mg Tablet) 5 mg PO Q4H PRN PRN Reason: Pain, Moderate(Pain Scale 4-6) Oxycodone HCl (Oxycodone Hcl Er 10 Mg Tab.Er.12h) 10 mg PO BID DANIEL Sodium Chloride (0.9 % Sodium Chloride Flush 3 Ml Syringe) 3 ml IVFLUSH QSHIFT DANIEL Valacyclovir HCl (Valacyclovir Hcl 1,000 Mg Tablet) 1,000 mg PO DAILY PRN PRN Reason: Cold Sores Home Medications Medication Instructions Recorded Confirmed Last Taken Type multivitamin 1 tab PO DAILY 09/04/22 10/23/23 Unknown History valacyclovir 1 gram tablet 1,000 mg PO DAILY PRN Cold Sores 06/12/23 10/23/23 Unknown History fiber tab PO 10/23/23 Unknown History Physical Exam Vital Signs and Narrative: Vital Signs: Last Vital Signs Temp 96.8 F 11/02/23 16:19 Pulse 59 11/02/23 16:19 Resp 18 11/02/23 16:19 BP 131/71 11/02/23 16:19 Pulse Ox 100 11/02/23 16:19 O2 Del Method Nasal Cannula 11/02/23 16:19 O2 Flow Rate 2 11/02/23 16:19 BMI result Body Mass Index 27.3 Constitutional - Awake and Alert, No apparent distress Eyes - PERRLA, EOMI Cardiovascular - S1S2, RRR, No edema Respiratory - Normal lung expansion, Normal respiratory effort, No respiratory distress, bibasilar crackles Extremities - no calf tenderness bilaterally, no swelling Skin - Warm/Dry Neurological - Alert & oriented x3 Psychological - Appropriate affect Assessment and Plan (1) Osteoarthritis of left hip: Status: Acute Plan 58 year old female without any significant past medical history admitted to orhtopedic surgery for OA left hip s/p left lauri with consult placed to hospitalist service for medical management. #OA Left hip s/p Left LAURI -plan per ortho surgery -recommend IS to help with post-op hypoxia #Precordial chest pain -no hemodynamically significant atherosclerotic disease on cardiac cta -nitro prn per cardiology note 01/11 Thank you for allowing me to participate in this consult. Signing off at this time. Please do not hesitate to call for further questions.
--- NOTE | 2023-11-02 16:59 | PC.NURSE ---
Left Hip dressing CDI, +CMS to LLE. Call diaz within reach, encouraged to ask staff for assistance. IS Use.
--- NOTE | 2023-11-02 17:52 | PC.NURSE ---
Pt doing well, visiting with family, no resp distress, Dressing CDI, call diaz within reach. +CMS, encouraged to ring for pain medications PRN. No n/v. Bedside commode and walker in room.
[2023-11-02] MEDS: Aspirin 325 MG TABLET PO (19:40)
[2023-11-02] MEDS: Gabapentin 100 MG CAPSULE PO (19:41)
[2023-11-02] MEDS: Clindamycin Phosphate/D5W 900 MG/50 ML PIGGYBACK 50 MG IV (19:41)
[2023-11-02] MEDS: Acetaminophen 325 MG TABLET 650 MG PO (19:41)
[2023-11-02] MEDS: methocarbamoL 500 MG TABLET PO (19:41)
[2023-11-02] MEDS: Celecoxib 200 MG CAPSULE PO (19:41)
[2023-11-02] MEDS: Docusate Sodium 100 MG CAPSULE PO (19:41)
[2023-11-02] MEDS: 0.9 % Sodium Chloride Flush 3 ML SYRINGE IVFLUSH (21:26)
[2023-11-03] VITALS (8 sets, daily range): BP systolic 102–136; BP diastolic 55–63; PULSE 62–71; RESP 14–18; TEMP 36.3–37.1; O2SAT 96–100
[2023-11-03] MEDS: Lactated Ringers 1,000 ML 100 ML IVCONT ×2 (00:12→12:09)
[2023-11-03] MEDS: HYDROmorphone HCl 0.5 MG/0.5 ML SYRINGE IVPUSH ×5 (03:02→21:32)
[2023-11-03] MEDS: Clindamycin Phosphate/D5W 900 MG/50 ML PIGGYBACK 50 MG IV ×2 (03:05→11:03)
[2023-11-03 05:48] LABS: MANUAL DIFF FLAG NO
[2023-11-03 05:53] LABS: Basophils Percent Auto 0.2 % (0-2); Hematocrit 31.5 % (37.0-47.0); Hemoglobin 10.6 g/dl (12.0-16.0); Imm Gran Abs Auto 0.03 X10*3/uL (0.00-0.03); Imm Gran Pct Auto 0.3 % (0.0-0.4); Lymphocytes Absolute Auto 1.1 X10*3/uL (1.2-4.9); Mean Corpuscular HGB Conc 33.7 g/dl (31.0-35.0); Mean Corpuscular Volume 80.2 fL (80.0-98.0); Mean Platelet Volume 10.8 fL (9.4-12.3); Monocytes Absolute Auto 0.8 X10*3/uL (0.1-1.2); Monocytes Percent Auto 8.1 % (2-11); Neutrophils Absolute Auto 8.3 x10*3/uL (2.0-8.3); Neutrophils Percent Auto 80.4 % (45-73); Platelet Count 180 X10*3/uL (160-400); Red Blood Count 3.93 X10*6/uL (4.20-5.50); Red Cell Distribution Width 13.7 % (11.0-16.0); White Blood Count 10.4 X10*3/uL (4.8-10.8)
[2023-11-03 06:03] LABS: Anion Gap 9 (12-20); Blood Urea Nitrogen 14 mg/dL (9-16); Calcium 8.1 mg/dL (8.4-10.2); Carbon Dioxide 26 mmol/L (22-29); Chloride 105 mmol/L (96-108); Creatinine Clr Calc Pharmacy 81.5; Estimated Glomerular Filt Rate > 60; Glucose Fasting 125 mg/dL (60-99); Potassium 4.4 mmol/L (3.3-5.1); Sodium 136 mmol/L (135-145)
[2023-11-03] MEDS: oxyCODONE HCl Immed Release 5 MG TABLET 10 MG PO ×3 (06:30→14:26)
--- NOTE | 2023-11-03 07:48 | P.PNOP_ITS ---
Subjective Subjective Date of Service: 11/03/23 Interval history: .POD 1 s/p LT SADI no overnight e vents working with PT/OT bp dropped to 78/41 with dizziness denies cp,palpitations Physical Exam Vital Signs: Vital Signs: Last Vital Signs Temp 97.4 F 11/03/23 07:29 Pulse 62 11/03/23 07:29 Resp 14 11/03/23 07:29 BP 113/55 L 11/03/23 07:29 Pulse Ox 98 11/03/23 07:29 O2 Del Method Room Air 11/03/23 07:29 O2 Flow Rate 2 11/02/23 16:19 BMI result Body Mass Index 27.3 Const: General: cooperative, healthy appearing and no acute distress Resp: Effort & Inspection: normal respiratory effort and able to speak in complete sentences Cardio: Rate: regular rate Peripheral pulses: Peripheral pulses 2+ throughout GI: Palpation (GI): Soft to palpation Skin: General skin exam: no rashes or lesions noted Extrem: Other: bandage clean dry and intact. Peck intact. No erythema or effusion. Calf supple nontender. Neurovascularly intact. Procedures Date of Service Date of Service: 11/03/23 Progress Note: A&P Assessment and plan (1) History of total left hip replacement: Status: Acute Assessment and Plan: * Continue pain mgmnt * Begin Aspirin for dvt ppx * begin PT /OT for Lt sadi * episode of hypotsn with PT-fluids and monitor * med consult * Dispo planning-Pending PT eval Need for continued inpatient stay: PT eval Time Spent With Patient Time: Total time managing care of this patient today ____ minutes. Quality Stroke Does the patient have a stroke diagnosis?: No VTE Prior VTE?: No VTE Risk Level:: Surgical - very high VTE Device Contraindication: N/A - Device Ordered VTE Drug Contraindication: N/A - Med Ordered
--- NOTE | 2023-11-03 07:51 | PC.NURSE ---
Pt working with therapy, BP dropped with ambulation to 78/41, HR 57, Therapy notified this rewriter at 7:45AM. Ortho notified. BP back up 115/62 HR 57 at 0750
--- NOTE | 2023-11-03 07:53 | PC.NURSE ---
Continue to monitor and recheck BP in one hour. While working with therapy, states Dizziness and sweating.
[2023-11-03] MEDS: Celecoxib 200 MG CAPSULE PO ×2 (08:02→20:16)
[2023-11-03] MEDS: Docusate Sodium 100 MG CAPSULE PO ×2 (08:02→20:15)
[2023-11-03] MEDS: methocarbamoL 500 MG TABLET PO ×3 (08:02→20:16)
[2023-11-03] MEDS: oxyCODONE HCl ER 10 MG TAB.ER.12H PO ×2 (08:02→20:16)
[2023-11-03] MEDS: Aspirin 325 MG TABLET PO ×2 (08:02→20:15)
--- NOTE | 2023-11-03 08:42 | PC.NURSE ---
Ortho and Hospitalist notified of current BP. No dizziness or sweating at this time.
--- NOTE | 2023-11-03 09:39 | MHC.CM.PN ---
CM MET WITH PT AT BEDSIDE. 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 +HCP PCP DR. DEWEY FUENTES DP: HOME WITH [facility] FOR HOME P.T. AND O.T. PT HAS OWN RIDE HOME. CM WILL CONTINUE TO FOLLOW FOR ANY CHANGE IN DC NEEDS/PLAN.
--- NOTE | 2023-11-03 13:18 | HO.POSTANES ---
Post Anesthesia Evaluation Post Anesthesia Evaluation Date of Service: 11/03/23 Vital Signs: Vital Signs Temp Pulse Resp BP Pulse Ox O2 Del Method 11/03/23 08:26 97.8 F 65 16 119/56 L 96 Room Air 11/03/23 08:09 62 113/55 L 98 11/03/23 07:29 97.4 F 62 14 113/55 L 98 Room Air 11/03/23 04:00 97.3 F 65 16 102/56 L 97 Room Air Anesthesia: General Mental Status: Awake Pain Control: Satisfactory Nausea/Vomiting: None Hydration: Adequate Anesthesia-Related Issues: No Anes. Related Issues
--- NOTE | 2023-11-03 15:47 | PC.NURSE ---
Pt requesting to stop IVF.
[2023-11-03] MEDS: Acetaminophen 1,000 MG/100 ML PIGGYBACK 400 MG IV ×2 (16:08→23:24)
--- NOTE | 2023-11-03 16:41 | PC.NURSE ---
Late Entry: Pt requesting increase in pain meds. MD increase PO dilaudid. Pt req IV for now and start PO tonight. APAP IV with no effect. See Provider Note.
--- NOTE | 2023-11-03 16:48 | PC.NURSE ---
MD Lin to order PRN Narcan with new change of Narc Dose.
--- NOTE | 2023-11-03 17:11 | P.EN_ITS ---
Event Note Date of Service: 11/03/23 Event Note: Patient complaining of uncontrolled pain: [place] Text placed to Dr. Bell to advise Dr Bell's recommendation: -Discontinue: - Oxycodone 10mg q4hrs -Add: -Diladid 2mg PO q4hrs for mild pain -Dilaudid 4mg PO q4hrs for moderate pain -Dilaudid 6mg PO q4hrs for severe pain -Continue: -DIlaudid 0.5mg IV q4hrs prn severe pain -Oxycontin 10mg PO BID -Tylenol 650mg PO q 6hrs -Celebrex 200mg PO BID -Gabapentin 100mg PO QHS -Methocarbamol 500mg PO TID Narcan ordered Instruction to nurse to carefully monitor patient Continuous pulse ox ordered Time Spent With Patient Time: Total time managing care of this patient today ____ minutes.
[2023-11-03] MEDS: Gabapentin 100 MG CAPSULE PO (20:16)
[2023-11-03] MEDS: HYDROmorphone HCl 2 MG TABLET PO (20:16)
[2023-11-03] MEDS: 0.9 % Sodium Chloride Flush 3 ML SYRINGE IVFLUSH (21:32)
[2023-11-04] VITALS (8 sets, daily range): BP systolic 103–133; BP diastolic 56–70; PULSE 66–84; RESP 16–18; TEMP 36.6–37; O2SAT 93–100
[2023-11-04] MEDS: HYDROmorphone HCl 0.5 MG/0.5 ML SYRINGE 1 MG IVPUSH ×4 (03:27→23:58)
[2023-11-04] MEDS: Acetaminophen 1,000 MG/100 ML PIGGYBACK 400 MG IV ×3 (05:23→16:54)
[2023-11-04 06:24] LABS: MANUAL DIFF FLAG NO
[2023-11-04 06:27] LABS: Basophils Percent Auto 0.3 % (0-2); Eosinophils Absolute Auto 0.1 X10*3/uL (0.0-0.4); Eosinophils Percent Auto 0.8 % (0-4); Hematocrit 30.6 % (37.0-47.0); Hemoglobin 10.2 g/dl (12.0-16.0); Imm Gran Abs Auto 0.03 X10*3/uL (0.00-0.03); Imm Gran Pct Auto 0.3 % (0.0-0.4); Lymphocytes Absolute Auto 1.6 X10*3/uL (1.2-4.9); Mean Corpuscular HGB Conc 33.3 g/dl (31.0-35.0); Mean Platelet Volume 10.6 fL (9.4-12.3); Monocytes Absolute Auto 0.8 X10*3/uL (0.1-1.2); Monocytes Percent Auto 8.4 % (2-11); Neutrophils Absolute Auto 6.6 x10*3/uL (2.0-8.3); Neutrophils Percent Auto 72.2 % (45-73); Platelet Count 165 X10*3/uL (160-400); Red Blood Count 3.78 X10*6/uL (4.20-5.50); Red Cell Distribution Width 13.9 % (11.0-16.0); White Blood Count 9.1 X10*3/uL (4.8-10.8)
[2023-11-04 06:38] LABS: Anion Gap 9 (12-20); Blood Urea Nitrogen 13 mg/dL (9-16); Calcium 8.4 mg/dL (8.4-10.2); Carbon Dioxide 28 mmol/L (22-29); Chloride 108 mmol/L (96-108); Creatinine Clr Calc Pharmacy 73.6; Estimated Glomerular Filt Rate > 60; Glucose Fasting 107 mg/dL (60-99); Potassium 4.4 mmol/L (3.3-5.1); Sodium 141 mmol/L (135-145)
[2023-11-04] MEDS: 0.9 % Sodium Chloride Flush 3 ML SYRINGE IVFLUSH ×2 (07:39→20:03)
[2023-11-04] MEDS: Aspirin 325 MG TABLET PO ×2 (07:40→20:01)
[2023-11-04] MEDS: Docusate Sodium 100 MG CAPSULE PO ×2 (07:41→20:02)
[2023-11-04] MEDS: Celecoxib 200 MG CAPSULE PO ×2 (07:41→20:02)
[2023-11-04] MEDS: methocarbamoL 500 MG TABLET PO ×3 (07:42→20:02)
--- NOTE | 2023-11-04 08:13 | PM.EVENT ---
Event Note Date of Service: 11/04/23 Event Note: Dr. Bell met with the patient this morning Discussed pain management and made appropriate med changes Patient needs continued admission for pain management and physical/occupational therapy Time Spent With Patient Time: Total time managing care of this patient today ____ minutes.
[2023-11-04] MEDS: Morphine Sulfate ER 15 MG TABLET.ER PO ×2 (08:18→20:02)
--- NOTE | 2023-11-04 12:27 | MHC.CM.PN ---
EMR REVIEWED. PT IS NOT MEDICALLY CLEARED FOR DC (PAIN MANAGEMENT, INCREASED PAIN MED NEEDS) CM WILL CONTINUE TO FOLLOW FOR ANY CHANGE IN DC PLAN/NEEDS.
[2023-11-04] MEDS: Gabapentin 100 MG CAPSULE PO (20:02)
[2023-11-05] MEDS: HYDROmorphone HCl 0.5 MG/0.5 ML SYRINGE 1 MG IVPUSH ×2 (03:34→07:24)
[2023-11-05 03:53] VITALS: BP 120/69; PULSE 85; RESP 16; TEMP 37.4; O2SAT 97
[2023-11-05] MEDS: Morphine Sulfate ER 15 MG TABLET.ER PO (06:41)
[2023-11-05 07:05] LABS: MANUAL DIFF FLAG NO
[2023-11-05 07:08] LABS: Basophils Percent Auto 0.4 % (0-2); Eosinophils Absolute Auto 0.1 X10*3/uL (0.0-0.4); Eosinophils Percent Auto 1.3 % (0-4); Hematocrit 30.9 % (37.0-47.0); Hemoglobin 10.1 g/dl (12.0-16.0); Imm Gran Abs Auto 0.05 X10*3/uL (0.00-0.03); Imm Gran Pct Auto 0.6 % (0.0-0.4); Lymphocytes Percent Auto 11.8 % (20-40); Mean Corpuscular HGB Conc 32.7 g/dl (31.0-35.0); Mean Corpuscular Hemoglobin 26.2 pg (27.0-33.0); Mean Corpuscular Volume 80.3 fL (80.0-98.0); Mean Platelet Volume 11.4 fL (9.4-12.3); Monocytes Absolute Auto 0.6 X10*3/uL (0.1-1.2); Monocytes Percent Auto 7.3 % (2-11); Neutrophils Absolute Auto 6.4 x10*3/uL (2.0-8.3); Neutrophils Percent Auto 78.6 % (45-73); Platelet Count 170 X10*3/uL (160-400); Red Blood Count 3.85 X10*6/uL (4.20-5.50); Red Cell Distribution Width 13.8 % (11.0-16.0); White Blood Count 8.2 X10*3/uL (4.8-10.8)
[2023-11-05 07:19] VITALS: BP 126/61; PULSE 77; RESP 18; TEMP 37; O2SAT 96
[2023-11-05] MEDS: 0.9 % Sodium Chloride Flush 3 ML SYRINGE IVFLUSH (07:24)
[2023-11-05 07:30] LABS: Anion Gap 11 (12-20); Blood Urea Nitrogen 10 mg/dL (9-16); Calcium 8.3 mg/dL (8.4-10.2); Carbon Dioxide 26 mmol/L (22-29); Chloride 105 mmol/L (96-108); Creatinine Clr Calc Pharmacy 86.1; Estimated Glomerular Filt Rate > 60; Glucose Fasting 104 mg/dL (60-99); Potassium 3.7 mmol/L (3.3-5.1); Sodium 138 mmol/L (135-145)
[2023-11-05 08:42] VITALS: BP 126/61; PULSE 77; O2SAT 96
--- NOTE | 2023-11-05 08:59 | PM.PNORT ---
Subjective Subjective Date of Service: 11/05/23 Interval history: POD3 s/p LTHA Patient is resting in the recliner s/p working with physical therapy No overnight events Pain continues to be a concern to the patient Physical Exam Vital Signs: Vital Signs: Last Vital Signs Temp 98.6 F 11/05/23 07:19 Pulse 77 11/05/23 08:42 Resp 18 11/05/23 07:19 BP 126/61 11/05/23 08:42 Pulse Ox 96 11/05/23 08:42 O2 Del Method Room Air 11/05/23 07:19 O2 Flow Rate 2 11/02/23 16:19 BMI result Body Mass Index 27.3 Const: General: cooperative, healthy appearing and no acute distress Resp: Effort & Inspection: normal respiratory effort and able to speak in complete sentences Cardio: Rate: regular rate Peripheral pulses: Peripheral pulses 2+ throughout GI: Palpation (GI): Soft to palpation Skin: Lesions: no lesions Rashes: no rashes Extrem: Other: left hip dressing is c/d/i. Able to dorsi/plantar flex. Calf is supple and nontender. Sensation intact. Pedal pulse intact. Procedures Date of Service Date of Service: 11/05/23 Progress Note: A&P Assessment and plan (1) History of total left hip replacement: Status: Acute Assessment and Plan: Continue pain mgmnt Continue ASA for dvt ppx Continue PT/OT for LTHA- No posterior precautions Patient requesting to speak with Dr. Bell in regards to concerns with pain and the post operative phase -Messaged was relayed to Dr. Bell on the patient's wishes Dispo planning-Pain mgmnt remains difficult Time Spent With Patient Time: Total time managing care of this patient today ____ minutes. Quality Stroke Does the patient have a stroke diagnosis?: No VTE Prior VTE?: No VTE Risk Level:: Surgical - very high VTE Device Contraindication: N/A - Device Ordered VTE Drug Contraindication: N/A - Med Ordered
[2023-11-05] MEDS: Docusate Sodium 100 MG CAPSULE PO (10:04)
[2023-11-05] MEDS: Aspirin 325 MG TABLET PO (10:04)
[2023-11-05] MEDS: Celecoxib 200 MG CAPSULE PO (10:04)
[2023-11-05] MEDS: methocarbamoL 500 MG TABLET PO (10:04)
[2023-11-05] MEDS: HYDROmorphone HCl 2 MG TABLET 6 MG PO ×2 (11:46→15:25)
[2023-11-05] MEDS: LORazepam 0.5 MG TABLET PO (12:49)
[2023-11-05 13:54] VITALS: BP 126/61; PULSE 77; O2SAT 96
--- NOTE | 2023-11-05 14:25 | PM.DS ---
DS: Providers Provider Date of Service: 11/05/23 Date of admission: 11/02/23 06:14 Primary care physician: SHANICE Medina Consults: 11/02/23 16:03 Consult to Hospitalist Routine Comment: Consulting Provider: Hospitalist Reason For Exam: routine medical management DS: Diagnosis Discharge Diagnosis (1) History of total left hip replacement: Status: Acute DS: Summary Hospital Course Hospital Course: The patient underwent a successful left total hip arthroplasty on 11/02/[address] Bell, was transferred to PACU and then to the floor to recover. During their stay, their vitals were stable, afebrile at 98.6. Labs were unremarkable, H/H 10.1 / 30.9. POD 1 she was started on ASA a day for DVT ppx, they also received Physical Therapy services twice a day. Overnight POD1, her pain became unmanageable requiring an increase in opiate medications including IV Dilaudid and PO Dilaudid and PO MOrphine Sulfate. Narcan was ordered as a precaution. POD 3 she continued to have muscle spasms and the robaxin was not helping; therefore, Dr Bell added Lorazepam which gave her some relief. Physical therapy should include gait training, core and lumbar strength, glute strength. Posterior precautions intact. WBAT. The Aquacel dressing should remain intact and dry at all times. Any concerns with the dressing, please contact orthopedic office. No showering. The plan is to be discharged home with vna services Time Attestation Discharge coordination time: Less than 30 minutes Quality: Safe Use of Opioids Does Pt have an Active Cancer Diagnosis on the Problem List?: No Quality: Stroke Does the patient have a stroke diagnosis?: No Physical Exam Vital Signs: Vital Signs: Last Vital Signs Temp 98.6 F 11/05/23 07:19 Pulse 77 11/05/23 13:54 Resp 18 11/05/23 07:19 BP 126/61 11/05/23 13:54 Pulse Ox 96 11/05/23 13:54 O2 Del Method Room Air 11/05/23 07:19 O2 Flow Rate 2 11/02/23 16:19 BMI result Body Mass Index 27.3 DS: Data Data Completed and Pending Pending studies at discharge: Pending at discharge 11/02/23 12:50 Surgical [PTH] Routine Labs on day of discharge: Laboratory Results - last 24 hr 11/05/23 05:32 WBC 8.2 RBC 3.85 L Hgb 10.1 L Hct 30.9 L MCV 80.3 MCH 26.2 L MCHC 32.7 RDW 13.8 Plt Count 170 MPV 11.4 Immature Gran % (Auto) 0.6 H Neut % (Auto) 78.6 H Lymph % (Auto) 11.8 L [place] % (Auto) 7.3 Eos % (Auto) 1.3 Baso % (Auto) 0.4 Lymph # (Auto) 1.0 L [place] # (Auto) 0.6 Eos # (Auto) 0.1 Baso # (Auto) 0.0 Abs Immat Gran (auto) 0.05 H Absolute Neuts (auto) 6.4 Absolute Nucleated RBC 0.000 Nucleated RBC % (auto) 0.0 Sodium 138 Potassium 3.7 Chloride 105 Carbon Dioxide 26 Anion Gap 11 L BUN 10 Creatinine 0.71 Estim Creat Clear Calc 86.1 Estimated GFR > 60 Fasting Glucose 104 H Calcium 8.3 L Discharge Plan Discharge Anticipated Discharge Date/Time: 11/05/23 15:21 Patient Disposition: Home Health Service Discharge Diagnosis: s/p LT Referrals: Cinthia Long PA-C [Physician Core Manager] - 11/19/23 12:30 pm Discharge Medications: New docusate sodium 100 mg Capsule 100 mg PO BID 7 Days Qty: 14 0RF celecoxib 200 mg Capsule 200 mg PO BID 30 Days Qty: 60 0RF aspirin 325 mg Tablet 325 mg PO BID 42 Days Qty: 84 0RF lorazepam 0.5 mg Tablet 0.5 mg PO Q6H PRN (Reason: Muscle Spasm) 7 Days Qty: 28 0RF morphine 15 mg Tablet Extended Release 15 mg PO Q12H 7 Days Qty: 14 0RF Rx Instructions: Partial Fill upon patient request. gabapentin 100 mg Capsule 100 mg PO BEDTIME 14 Days Qty: 14 0RF hydromorphone 4 mg Tablet 4 mg PO Q3H PRN (Reason: Pain, Moderate(Pain Scale 4-6)) 7 Days Qty: 56 0RF Rx Instructions: Partial Fill upon patient request. Continued (DME) walker Misc See Rx Instructions .ROUTE .MEDSUPPLY Qty: 1 0RF Rx Instructions: Folding front wheeled walker (DME) Raised toliet seat See Rx Instructions .ROUTE .MEDSUPPLY Qty: 1 0RF Rx Instructions: As directed fiber Tablet,Chewable PO multivitamin Tablet 1 tab PO DAILY valacyclovir 1 gram tablet 1,000 mg PO DAILY PRN (Reason: Cold Sores) nitroglycerin 0.4 mg tablet, sublingual 0.4 mg sublingual Q5M PRN (Reason: chest pain) Qty: 30 5RF Rx Instructions: do not exceed 3 doses per episode Discharge Orders: Discharge Order (Routine); Ordered 11/05/23 Ordered By: Pam Walters Diet: Advance to usual diet Activity on Discharge: Use cane or walker Stand Alone Forms: Patient Portal Discharge page Activity Restrictions/Additional Instructions: Physical Therapy for total hip arthroplasty: no precautions, gait training, ROM, strength Limit stair climbing No showering, no tub bath-keep dressing clean, dry and intact Continue Aspirin 325mg tabs twice a day x 6 weeks Follow up with [facility] in 2 weeks Care Plan Goals: Restore fxn to the left hip Health Concerns: None Plan of Treatment: Physical Therapy for total hip arthroplasty: no precautions, gait training, ROM, strength Limit stair climbing No showering, no tub bath-keep dressing clean, dry and intact Continue Aspirin 325mg tabs twice a day x 6 weeks Follow up with [facility] in 2 weeks Assessment: Stable for d/c Patient Instructions: Precautions after Total Joint Replacement Surgery (GEN), Joint Replacement Surgery (GEN), Total Hip Replacement (GEN)
--- NOTE | 2023-11-05 14:33 | MHC.CM.PN ---
PT WILL DC HOME TODAY WITH [facility] VIA PRIVATE TRANSPORT
[2023-11-05 15:00] VITALS: O2SAT 95
[2023-11-05 15:36] VITALS: BP 105/64; PULSE 79; RESP 19; TEMP 36.9; O2SAT 95
--- NOTE | 2023-11-05 15:39 | W.MHC.F2F ---
Service Date Service Date: 11/05/23 Encounter Date of encounter: 11/05/23 Reasons for Services Signs and symptoms assessed: s/p LTHA. Pt. is considered homebound due to recent surgery. Unable to drive, poor balance, poor gait mechanics. Reason for physical therapy: home safety and mobility, therapeutic exercises, restore joint function, gait/transfer training, assess need for DME and ADL training Reason for occupational therapy: home safety and mobility, therapeutic exercises, restore joint function, gait/transfer training, assess need for DME and ADL training Homebound: Leaving the home is medically contraindicated at this time without the asist of a device and/or another person due th the listed conditions above and below. Reason homebound: unsteady gait / fall risk, leg weakness, pain with ambulation, pain with transfers, poor balance / fall risk and unable to drive Certification: Based on the above findings, I certify that this patient is confined to the home and needs intermittent residential care, physical therapy and/or speech therapy, or continues to need occupational therapy. The patient is under my care, and I have initiated the establishment of the plan of care. The patient will be followed by a physician who will periodically review the plan of care. Time Spent With Patient Time: Total time managing care of this patient today ____ minutes.
== END 2023-11-05 17:05 | disposition home health service (06) | DRG 301 ==
LOC: HO.SSSA 06:15 → HO.S3 13:48
PROVIDERS: Physician Assistant; Admitting Provider Orthopaedic Surgery; PCP Physician Assistant Medical; Visit Provider Orthopaedic Surgery
PROC: 0SRB04A Replacement of Left Hip Joint with Ceramic on Polyethylene Synthetic Substitute, Uncemented, Open Approach (ICD-10-PCS; CPT 27130; principal; 2023-11-02 09:40)
DX: M16.12 Unilateral primary osteoarthritis, left hip (principal); G89.18 Other acute postprocedural pain; I25.10 Atherosclerotic heart disease of native coronary artery without angina pectoris; Z79.899 Other long term (current) drug therapy
CPT/HCPCS: 36415; 72170; 80048; 85025; 86850; 86900; 86901; 87640; 87641; 88304; 88311; 97110; 97116; 97162; 97166; 97530; 97535; C1713; C1776; J0131; J0736; J1100; J1170; J2250; J2405; J2704; J3010; J3370; J7120

== ENCOUNTER → 2023-11-02 06:14 | Outpatient (BNV) | payer OTHER, SELFPAY | PROVIDERS: Admitting Provider Orthopaedic Surgery; PCP Physician Assistant Medical; Visit Provider Physician Assistant | DX: M16.12 Unilateral primary osteoarthritis, left hip (principal); R07.9 Chest pain, unspecified | CPT/HCPCS: 99222 ==

== ENCOUNTER → 2023-11-02 06:14 | Outpatient (BNV) | payer OTHER, SELFPAY | PROVIDERS: Admitting Provider Orthopaedic Surgery; PCP Physician Assistant Medical; Visit Provider Orthopaedic Surgery | DX: Z96.642 Presence of left artificial hip joint (principal) | CPT/HCPCS: 27130; 99024; 99499 ==

== ENCOUNTER 2023-11-09 08:15 | Emergency (ER) | payer OTHER, SELFPAY ==
--- NOTE | ~2023-11-09 | US_ITS ---
EXAMINATION: US VENOUS ULTRASOUND WITH DOPPLER LOWER EXTREMITY, LEFT CLINICAL INFORMATION: Left leg pain and swelling. Patient is postoperative. COMPARISON: None available. TECHNIQUE: Ultrasound of the deep veins is performed from the hip to the calf with compression sonography and color and pulse Doppler assessment. Spectral analysis with color-flow imaging is performed. FINDINGS: There is normal venous compression and respiratory variation and augmented flow. The visualized common femoral vein, superficial femoral vein, profunda femoral vein and popliteal vein, shows no evidence of deep venous thrombosis. There is noncompressible echogenic clot peroneal and posterior tibial vein. There is no significant popliteal fossa cyst.. If the patient's symptoms persist, followup ultrasound in 5 days 7 days might be of value to exclude proximal propagation from a non-visualized calf vein. US/US venous duplex LE IMPRESSION: Acute thrombus in the left peroneal and posterior tibial veins. Rest of the left lower extremity veins are patent
--- NOTE | ~2023-11-09 | XR_ITS ---
EXAMINATION: XR HIP, LEFT CLINICAL INFORMATION: Status post hip replacement. Hip pain. COMPARISON: None available. TECHNIQUE: Two views of the left hip. FINDINGS: There is postop total left hip replacement with immediate postoperative changes. Medial prosthetic components is are in alignment with a cerclage wire surrounding the proximal femur for stability.. There are surgical brandon along the lateral hip. XR/XR hip LT w [id number] IMPRESSION: Total left hip replacement with immediate postoperative changes. The prosthetic components are in alignment.
[2023-11-09 08:33] VITALS: BP 129/52; PULSE 67; PULSE 77; RESP 16; TEMP 37.2; O2SAT 97; O2SAT 98; BMI 27.1
--- NOTE | 2023-11-09 09:05 | ED_ITS ---
HPI - General Adult General Chief complaint: Extremity Injury, Lower Stated complaint: L HIP PAIN S/P THR 1 WEEK AGO PER EMS Time Seen by Provider: 11/09/23 08:25 Source: patient, family and EMS Mode of arrival: EMS Limitations: no limitations History of Present Illness HPI narrative: This is a 58 years old of female status post left total hip replacement about week ago presented to the emergency department with increasing pain in the left hip area she denies any fever chills. Surgery was a total hip replacement about a week ago Onset (ago): week(s) (1) Location: lower extremity (Left hip) Radiation: non-radiation Severity: moderate Pain Consistency: constant Exacerbating factors: none Associated symptoms: denies other symptoms Related Data Home Medications Medication Instructions Recorded Confirmed multivitamin 1 tab PO DAILY 09/04/22 10/23/23 valacyclovir 1 gram tablet 1,000 mg PO DAILY PRN Cold Sores 06/12/23 10/23/23 fiber tab PO 10/23/23 Previous Rx's Medication Instructions Recorded nitroglycerin 0.4 mg sublingual 0.4 mg sublingual Q5M PRN chest 12/25/22 tablet pain #30 tabs Raised toliet seat #1 ea 10/06/23 walker #1 ea 10/06/23 aspirin 325 mg tablet 325 mg PO BID 42 days #84 tabs 11/05/23 celecoxib 200 mg capsule 200 mg PO BID 30 days #60 caps 11/05/23 docusate sodium 100 mg capsule 100 mg PO BID 7 days #14 caps 11/05/23 gabapentin 100 mg capsule 100 mg PO BEDTIME 14 days #14 caps 11/05/23 lorazepam 0.5 mg tablet 0.5 mg PO Q6H PRN Muscle Spasm 7 11/05/23 days #28 tabs morphine 15 mg tablet,extended 15 mg PO Q12H 7 days #14 tabs 11/05/23 release hydromorphone 4 mg tablet 6 mg (1.5 x 4 mg) PO Q3H PRN pain 11/08/23 (Dilaudid) #60 tabs apixaban 5 mg tablet (Eliquis) 5 mg PO BID #42 tabs 11/09/23 Allergies Allergy/AdvReac Type Severity Reaction Status Date / Time Penicillins Allergy Intermediate Hives Verified 11/02/23 06:18 tramadol AdvReac Intermediate Hives Verified 11/02/23 06:18 Review of Systems 2 Constitutional: Constitutional: Reports no additional constitutional complaints ENT: Reports system reviewed and no additional complaints, except as documented Musculoskeletal: Musculoskeletal: Reports other (Left hip pain) [facility] Past Medical History [facility] Narrative: DJD ;nonobstructive coronary artery disease Medical History Osteoarthritis of left hip Osteoarthritis Atherosclerotic cardiovascular disease Surgical History Hx of colonoscopy Family History Family History Father Heart attack Lung cancer History of quadruple bypass Mother Afib H/O heart artery stent S/P ablation of atrial fibrillation Social History Social History Household Members: Family Housing: House Are you a primary healthcare specialist to a significant other at home: No Do you presently have visiting nurse or other home services: No Alcohol intake: current Alcohol intake frequency: a few times a month Patient Tobacco Use Status: Never used Tobacco Advance Directives: No Advance Directives Information Provided: Yes service: No Current occupational status: employed 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 Exam ED Vital Signs: Vital Signs - 24 hr 11/09/23 08:33 11/09/23 11:13 Temperature 99 F Pulse Rate 77 84 Respiratory Rate 16 Blood Pressure 129/52 L 109/59 L Pulse Oximetry 98 98 Oxygen Delivery Method Room Air Room Air BMI result Body Mass Index 27.1 Const General: cooperative Nutritional Appearance: average body habitus Orientation/consciousness: patient oriented x3 HENMT Head: Yes normal to inspection General nose exam: Normal external nose present Face and sinus: Yes normal facial exam Mouth: Normal oral and palatal mucosa present Neck Neck: Yes normal visual inspection Chest Chest palpation & inspection: normal inspection of the chest Resp Effort & Inspection: normal respiratory effort Auscultation: clear to auscultation bilaterally Cardio Jugular venous distension: no JVD Rhythm: regular rhythm GI Inspection: Yes normal to inspection Palpation (GI): Soft to palpation Skin General skin exam: no rashes or lesions noted Lesions: no lesions Rashes: no rashes Neuro General: patient oriented x3 Extrem Other: Examination left hip shows well healing wound there is no redness no swelling Course Reevaluation(s) Reevaluation #1: Ultrasound showed a left DVT x-ray of the hip within normal limits also labs showed elevated LFT. I discussed ultrasound reported with ortho spoke with Ally PRASAD will start the patient on Eliquis. I also spoke with the patient at length I told him about LFT elevated she will check with the primary care physician We sent about a month supply of Eliquis to [facility] pharmacy, you will need likely 3 month treatment but follow-up with your orthopedist and primary care physician for further prescription Time: 10:41 Reevaluation #2: I ALSO SPOKE WITH dR Bernal Medications Administered Discontinued Medications Generic Name Dose Route Start Last Admin Trade Name Freq PRN Reason Stop Dose Admin Apixaban 10 mg 11/09/23 10:28 11/09/23 11:14 Apixaban 5 Mg Tablet PO 11/09/23 10:29 10 mg ONCE ONE Administration Hydromorphone HCl 4 mg 11/09/23 11:23 11/09/23 11:33 Hydromorphone Hcl 4 Mg Tablet PO 11/09/23 11:24 4 mg ONCE ONE Administration Medical Decision Making Medical Decision Making [facility] Narrative: Patient presented status post left a replacement a week ago will get x-ray ultrasound to rule out DVT Differential Diagnosis Differential Diagnoses: The differential diagnosis associated with the presentation includes Dislocated hip prosthesis/DVT Admission/Observation Consideration of admission/observation: Escalation of care including admission/observation considered Consult Healthcare Provider Management of the patient was discussed with: Char Filter Operator Helper spoke with Rick Orozco Lab Data [facility] Lab Attestation statement: I reviewed the patient's lab results. 11/09/23 09:26 11/09/23 09:26 Labs: Lab Results 11/09/23 Range/Units 09:26 WBC 8.6 (4.8-10.8) X10*3/uL RBC 3.86 L (4.20-5.50) X10*6/uL Hgb 10.2 L (12.0-16.0) g/dl Hct 30.7 L (37.0-47.0) % MCV 79.5 L (80.0-98.0) fL MCH 26.4 L (27.0-33.0) pg MCHC 33.2 (31.0-35.0) g/dl RDW 13.9 (11.0-16.0) % Plt Count 326 D (160-400) X10*3/uL MPV 9.5 (9.4-12.3) fL Immature Gran % (Auto) 0.8 H (0.0-0.4) % Neut % (Auto) 76.1 H (45-73) % Lymph % (Auto) 10.6 L (20-40) % [place] % (Auto) 11.7 H (2-11) % Eos % (Auto) 0.7 (0-4) % Baso % (Auto) 0.1 (0-2) % Lymph # (Auto) 0.9 L (1.2-4.9) X10*3/uL [place] # (Auto) 1.0 (0.1-1.2) X10*3/uL Eos # (Auto) 0.1 (0.0-0.4) X10*3/uL Baso # (Auto) 0.0 (0.0-0.2) X10*3/uL Abs Immat Gran (auto) 0.07 H (0.00-0.03) X10*3/uL Absolute Neuts (auto) 6.5 (2.0-8.3) x10*3/uL Absolute Nucleated RBC 0.000 (0.0-0.012) X10*3/uL Nucleated RBC % (auto) 0.0 (0.0-0.2) /100WBC Sodium 139 (135-145) mmol/L Potassium 4.4 (3.3-5.1) mmol/L Chloride 103 (96-108) mmol/L Carbon Dioxide 28 (22-29) mmol/L Anion Gap 12 (12-20) BUN 12 (9-16) mg/dL Creatinine 0.73 (0.5-1.4) mg/dL Estim Creat Clear Calc 83.5 Estimated GFR > 60 Random Glucose 101 (60-115) mg/dL Calcium 9.2 D (8.4-10.2) mg/dL Total Bilirubin 0.6 (0.0-1.0) mg/dL AST 51 H (5-31) U/L ALT 116 H (0-31) U/L Alkaline Phosphatase 244 H (39-117) U/L Total Protein 6.5 (6.5-8.0) g/dL Albumin 3.3 L (3.5-5.0) g/dL Independent Interpretation I performed an independent interpretation of an: Ultrasound Interpretation: Ultrasound consistent with a left peroneal DVT Radiology Impression Discussion of test interpretation with radiology: I have reviewed the radiologist's reading. Radiologist Impression: ulse Doppler assessment. Spectral analysis with color-flow imaging is performed. FINDINGS: There is normal venous compression and respiratory variation and augmented flow. The visualized common femoral vein, superficial femoral vein, profunda femoral vein and popliteal vein, shows no evidence of deep venous thrombosis. There is noncompressible echogenic clot peroneal and posterior tibial vein. There is no significant popliteal fossa cyst.. If the patient's symptoms persist, followup ultrasound in 5 days 7 days might be of value to exclude proximal propagation from a non-visualized calf vein. US/US venous duplex LE LT IMPRESSION: Acute thrombus in the left peroneal and posterior tibial veins. Rest of the left lower extremity veins are patent Dictated By: Gary Gonzalez MD Signed By: <Electronically signed by Gary Gonzalez MD in OV> 11/09/23 1010 Independent Historian Clinical information obtained from an independent historian. History obtained from or confirmed by: Other (children) External Record Review External record reviewed: Inpatient record Prescription Management I considered prescription management with: Pain Medication Discharge Plan Discharge Clinical Impression: Elevated LFTs DVT (deep venous thrombosis) Qualifiers: DVT location: lower extremity Affected thrombotic vein of extremity: peroneal C hronicity: acute Laterality: left Qualified Code(s): I82.452 - Acute embolism and thrombosis of left peroneal vein Patient Disposition: Home, Self-Care Instructions: Deep Vein Thrombosis (ED) Additional Instructions: Take Eliquis as directed 10 mg twice a day for 7 days then 5 mg twice a day, follow-up with your orthopedist also follow-up with your primary care physician regarding elevated LFT Prescriptions: New Eliquis 5 mg tablet 5 mg PO BID Qty: 42 0RF Rx Instructions: Take 2 (10 mg) tablets twice a day for [address] Take 1 tablet twice a day (5 mg twice a day) No Action (DME) walker Misc See Rx Instructions .ROUTE .MEDSUPPLY Qty: 1 0RF Rx Instructions: Folding front wheeled walker (DME) Raised toliet seat See Rx Instructions .ROUTE .MEDSUPPLY Qty: 1 0RF Rx Instructions: As directed hydromorphone [Dilaudid] 4 mg tablet 6 mg PO Q3H PRN (Reason: pain) Qty: 60 0RF Rx Instructions: Partial Fill upon patient request. fiber Tablet,Chewable PO docusate sodium 100 mg Capsule 100 mg PO BID 7 Days Qty: 14 0RF celecoxib 200 mg Capsule 200 mg PO BID 30 Days Qty: 60 0RF aspirin 325 mg Tablet 325 mg PO BID 42 Days Qty: 84 0RF lorazepam 0.5 mg Tablet 0.5 mg PO Q6H PRN (Reason: Muscle Spasm) 7 Days Qty: 28 0RF morphine 15 mg Tablet Extended Release 15 mg PO Q12H 7 Days Qty: 14 0RF Rx Instructions: Partial Fill upon patient request. gabapentin 100 mg Capsule 100 mg PO BEDTIME 14 Days Qty: 14 0RF multivitamin Tablet 1 tab PO DAILY valacyclovir 1 gram tablet 1,000 mg PO DAILY PRN (Reason: Cold Sores) nitroglycerin 0.4 mg tablet, sublingual 0.4 mg sublingual Q5M PRN (Reason: chest pain) Qty: 30 5RF Rx Instructions: do not exceed 3 doses per episode Referrals: Bear Bell MD [Physician] - 3 days Interventions: ED Discharge Assessment Last Done: 11/09/23 12:19 Discharge Date/Time: 11/09/23 12:21
[2023-11-09 09:32] LABS: MANUAL DIFF FLAG NO
[2023-11-09 09:38] LABS: Basophils Percent Auto 0.1 % (0-2); Eosinophils Absolute Auto 0.1 X10*3/uL (0.0-0.4); Eosinophils Percent Auto 0.7 % (0-4); Hematocrit 30.7 % (37.0-47.0); Hemoglobin 10.2 g/dl (12.0-16.0); Imm Gran Abs Auto 0.07 X10*3/uL (0.00-0.03); Imm Gran Pct Auto 0.8 % (0.0-0.4); Lymphocytes Absolute Auto 0.9 X10*3/uL (1.2-4.9); Lymphocytes Percent Auto 10.6 % (20-40); Mean Corpuscular HGB Conc 33.2 g/dl (31.0-35.0); Mean Corpuscular Hemoglobin 26.4 pg (27.0-33.0); Mean Corpuscular Volume 79.5 fL (80.0-98.0); Mean Platelet Volume 9.5 fL (9.4-12.3); Monocytes Percent Auto 11.7 % (2-11); Neutrophils Absolute Auto 6.5 x10*3/uL (2.0-8.3); Neutrophils Percent Auto 76.1 % (45-73); Platelet Count 326 X10*3/uL (160-400); Red Blood Count 3.86 X10*6/uL (4.20-5.50); Red Cell Distribution Width 13.9 % (11.0-16.0); White Blood Count 8.6 X10*3/uL (4.8-10.8)
[2023-11-09 10:04] LABS: Alanine Aminotransferase 116 U/L (0-31); Albumin Level 3.3 g/dL (3.5-5.0); Alkaline Phosphatase 244 U/L (39-117); Anion Gap 12 (12-20); Aspartate Amino Transferase 51 U/L (5-31); Bilirubin Total 0.6 mg/dL (0.0-1.0); Blood Urea Nitrogen 12 mg/dL (9-16); Calcium 9.2 mg/dL (8.4-10.2); Carbon Dioxide 28 mmol/L (22-29); Chloride 103 mmol/L (96-108); Creatinine Clr Calc Pharmacy 83.5; Estimated Glomerular Filt Rate > 60; Glucose Random 101 mg/dL (60-115); Potassium 4.4 mmol/L (3.3-5.1); Sodium 139 mmol/L (135-145); Total Protein 6.5 g/dL (6.5-8.0)
[2023-11-09 11:13] VITALS: BP 109/59; PULSE 84; O2SAT 98
[2023-11-09] MEDS: Apixaban 5 MG TABLET 10 MG PO (11:14)
== END 2023-11-09 12:21 | disposition home or self-care (01) ==
PROVIDERS: Emergency Provider Emergency Medicine; PCP Physician Assistant Medical
DX: I82.452 Acute embolism and thrombosis of left peroneal vein (principal); R60.0 Localized edema; M25.552 Pain in left hip; R79.89 Other specified abnormal findings of blood chemistry; Z79.899 Other long term (current) drug therapy
CPT/HCPCS: 36415; 73502; 80053; 85025; 93971; 99284

== ENCOUNTER 2023-11-12 14:09 | Outpatient (AMB) | payer OTHER, SELFPAY ==
--- NOTE | 2023-11-12 14:10 | A.OFFVIS_ITS ---
Intake Intake Visit Reasons: PO, Question Cellulitis Intake Note: Nilsa wooten 58 year old female presents today for a post operative wound check s/p left SADI on 11/02/23 DRJames Patient reports she is experiencing a lot of soreness and stiffness. She states she fell on 11/06/23 and she contacting our office to make sure if she was fine. Patient also cash to the ER due to having cold sweats. She notices that the incision site is a bit swollen and red. Allergies Penicillins Allergy (Intermediate, Verified 11/12/23 14:11) Hives tramadol Adverse Reaction (Intermediate, Verified 11/12/23 14:11) Hives HPI PO, Question Cellulitis HPI Details 58-year-old female who presents in the o ffice today 10 days status post left total hip arthroplasty, which was performed on 11/02/[address] Bell. The patient reports she is experiencing a lot of soreness and stiffness. She reports noticing erythema and edema at the incision site. Patient states she went to the ED due to having cold sweats on 11/09/2023. Per the patient?s ED note she reports increased pain, but denies fever or chills. Upon examination the left hip showed a well healing wound with no redness or swelling. Ultrasound of the left lower extremity were obtained. The patient was initiated on Eliquis. Patient reports a fall on 11/06/2023 and states she contacted the office to make sure she was fine. [facility], LATER [facility] Medical History Osteoarthritis of left hip Osteoarthritis Atherosclerotic cardiovascular disease Surgical History Hx of colonoscopy Family History Father Heart attack Lung cancer History of quadruple bypass Mother Afib H/O heart artery stent S/P ablation of atrial fibrillation Social History Household Members: Family Housing: House Are you a primary hospice home care coordinator to a significant other at home: No Do you presently have visiting nurse or other home services: No Alcohol intake: current Alcohol intake frequency: a few times a month 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 There is surrounding area of cellulitis that has developed surrounding the incision site and extends circumferentially around the area where the bandage was placed. Tenderness to palpation and warmth to the touch. NVI. Ambulating with the use of a walker. Assessment & Plan Assessment & Plan (1) History of total left hip replacement: Onset Date: ~11/02/23 Comment: Dr. Desouza Code(s): Z96.642 - Presence of left artificial hip joint Plan Ms. Leung is a 58-year-old female who presents in the office today 10 days status post left total hip arthroplasty, which was performed on 11/02/[address] Bell. The patient reports she is experiencing a lot of soreness and stiffness. She reports noticing erythema and edema at the incision site. Patient states she went to the ED due to having cold sweats on 11/09/2023. Per the patient?s ED note she reports increased pain, but denies fever or chills. Upon examination the left hip showed a well healing wound with no redness or swelling. Ultrasound of the left lower extremity were obtained. The patient was initiated on Eliquis. Patient reports a fall on 11/06/2023 and states she contacted the office to make sure she was fine. The patient is currently ambulating with the use of a walker. She will return to the office on 11/16/2023 for evaluation of the cellulitis surrounding the incision site. She was educated on signs of infection, which are as follows but not limited to erythema, edema, drainage, or warmth. If she is to experience any of these symptoms she is to contact the office, call the after hour service or present to the ED immediately. Follow up will be on Thursday11/16/[address] Bell, or sooner if needed. --A refill for Lorazepam 0.5 mg PO Q6H PRN was sent to the pharmacy today. --A prescription for sulfamethoxazole-trimethoprim 800-160 mg (Bactrim DS) PO BID 28 tablets for 14 days was sent to the pharmacy today. Ultrasound of the left lower extremity, obtained on 11/09/2023, revealed: Acute thrombus in the left peroneal and posterior tibial veins. Rest of the left lower extremity veins are patent Medications: New sulfamethoxazole-trimethoprim 800-160 mg (Bactrim DS) 1 tab PO BID 14 days 28 tabs 0RF Refilled lorazepam 0.5 mg PO Q6H 7 days PRN 28 tabs 0RF Muscle Spasm Patient Instructions: Scribed by Connie Ritchie electromedical equipment repairer, for Cinthia Long PA-C on 11/12/2023 at 2:11 am, EST. Coding Level of Care Code Global (82666) Diagnoses History of total left hip replacement Z96.642
== END 2023-11-12 15:09 | disposition home or self-care (01) ==
PROVIDERS: PCP Physician Assistant Medical; Visit Provider Physician Assistant
DX: Z96.642 Presence of left artificial hip joint (principal)
CPT/HCPCS: 99024

== ENCOUNTER → 2023-11-12 14:09 | Outpatient (BNVA) | payer OTHER, SELFPAY | PROVIDERS: PCP Physician Assistant Medical; Visit Provider Physician Assistant ==

== ENCOUNTER 2023-11-15 22:23 | Inpatient (IN) | payer OTHER, SELFPAY ==
--- NOTE | ~2023-11-15 | US_ITS ---
EXAMINATION: US VENOUS ULTRASOUND WITH DOPPLER LOWER EXTREMITY, LEFT CLINICAL INFORMATION: Worsening left lower extremity edema COMPARISON: Left lower extremity duplex on 11/09/2023 TECHNIQUE: Ultrasound of the deep veins is performed from the hip to the calf with compression sonography and color and pulse Doppler assessment. Spectral analysis with color-flow imaging is performed. FINDINGS: There is normal venous compression and respiratory variation and augmented flow. The visualized common femoral vein, superficial femoral vein, profunda femoral vein, popliteal vein, shows no evidence of deep venous thrombosis. There is no significant popliteal fossa cyst. There is redemonstration of nonocclusive thrombus in the left peroneal vein, however the posterior tibial vein appears compressible and patent on this exam. US/US venous duplex LE LT IMPRESSION: Persistent left peroneal thrombus. The left posterior tibial vein appears patent on this exam.
--- NOTE | ~2023-11-15 | CT_ITS ---
EXAMINATION: CT FEMUR LEFT WITH CONTRAST CLINICAL INFORMATION: Leg swelling. Hip replacement 2 weeks prior. Draining surgical site. COMPARISON: None available. TECHNIQUE: Contiguous axial contrast-enhanced CT scan images of the left femur were obtained after the intravenous administration of 80 mL Omnipaque 350. Sagittal and coronal reformatted images also obtained. This CT examination was performed using dose optimization techniques as appropriate, variously including the following: *Automated exposure control *Adjustment of mA and/or kV according to patient size (this includes techniques or standardized protocols for targeted exams where dose is matched to indication/reason for exam; i.e. extremities or head) *Use of iterative reconstruction technique DLP: 347 mGy-cm FINDINGS: There is a left hip prosthesis in place. There is a small amount of air lucency seen within the femur just below the tip of the prosthesis. There are surgical clips along the left hip. There is left-sided proximal femoral skin thickening with subcutaneous infiltration/edema. There is an elongated collection within the left hip just above the muscular fascia measuring 20.5 x 5.5 X 6.5 cm associated with some air lucencies superiorly and some adjacent air lucencies. There is retained stool. CT/CT femur LT w IV con IMPRESSION: 1. There is a left hip prosthesis in place. There is a small amount of air lucency seen within the femur just below the tip of the prosthesis. 2. There is an elongated collection within the left hip just above the muscular fascia measuring 20.5 x 5.5 X 6.5 cm associated with some air lucencies superiorly and some adjacent air lucencies. This is likely a postoperative collection. Infected collection is not excluded. 3. There is left-sided proximal femoral skin thickening with subcutaneous infiltration/edema.
[2023-11-15 22:30] VITALS: BP 105/50; PULSE 78; RESP 18; TEMP 36.8; O2SAT 99; BMI 26.7
--- NOTE | 2023-11-15 23:19 | ED_ITS ---
HPI - Extremity Injury (Lower) General Chief Complaint: Extremity Injury, Lower Stated Complaint: Hip replacement would infected? Time Seen by Provider: 11/15/23 22:54 Source: patient and family Mode of arrival: ambulatory Limitations: no limitations History of Present Illness HPI Narrative: 58-year-old female who presents emergency department for evaluation of swelling, pain, redness of her left thigh. The patient had a total hip replacement on 11/02/2023 done here at this institution. The procedure was complicated by pain and the patient has been on Dilaudid 4 mg 3 to 4 times a day in order to control her pain. She was seen in the emergency department on 11/09/2023 who was diagnosed to be DVT of the left leg-acute thrombus in the left peroneal and posterior tibial veins. She did report a fall prior to that but did not injure her left thigh and did have x-rays on 11/09/2023 which did not reveal any damage to the left hip replacement or acute fractures. Patient was started on Eliquis. She states that she was seen by her visiting nurse on 11/12/2023 and was noted to have erythema around the surgical wound and she was referred to the orthopedic office and was diagnosed with cellulitis. Patient was placed on Bactrim. She states since then the erythema in her leg has increased despite being on Bactrim. She also states that the swelling to her left thigh areas also increased. She also has noted a bloody drainage from the wound which is new in the last 24 hours. She did talk to the covering orthopedic physician processing assistant, Cinthia Nuñez who advised to come to the emergency department for evaluation. Related Data Home Medications Medication Instructions Recorded Confirmed multivitamin 1 tab PO DAILY 09/04/22 10/23/23 valacyclovir 1 gram tablet 1,000 mg PO DAILY PRN Cold Sores 06/12/23 10/23/23 fiber tab PO 10/23/23 valacyclovir 1 gram tablet 1,000 mg PO DAILY 11/16/23 11/16/23 Previous Rx's Medication Instructions Recorded nitroglycerin 0.4 mg sublingual 0.4 mg sublingual Q5M PRN chest 12/25/22 tablet pain #30 tabs Raised toliet seat #1 ea 10/06/23 walker #1 ea 10/06/23 aspirin 325 mg tablet 325 mg PO BID 42 days #84 tabs 11/05/23 celecoxib 200 mg capsule 200 mg PO BID 30 days #60 caps 11/05/23 docusate sodium 100 mg capsule 100 mg PO BID 7 days #14 caps 11/05/23 gabapentin 100 mg capsule 100 mg PO BEDTIME 14 days #14 caps 11/05/23 morphine 15 mg tablet,extended 15 mg PO Q12H 7 days #14 tabs 11/05/23 release hydromorphone 4 mg tablet 6 mg (1.5 x 4 mg) PO Q3H PRN pain 11/08/23 (Dilaudid) #60 tabs apixaban 5 mg tablet (Eliquis) 5 mg PO BID #42 tabs 11/09/23 sulfamethoxazole 800 1 tab PO BID 14 days #28 tabs 11/12/23 mg-trimethoprim 160 mg tablet (Bactrim DS) lorazepam 0.5 mg tablet 0.5 mg PO Q6H PRN anxiety 7 days 11/13/23 #28 tabs Allergies Allergy/AdvReac Type Severity Reaction Status Date / Time Penicillins Allergy Intermediate Hives Verified 11/12/23 14:11 tramadol AdvReac Intermediate Hives Verified 11/12/23 14:11 Review of Systems 2 Review of Systems: Yes all other systems are reviewed and are negative [facility] Past Medical History [facility] Narrative: Social history: She denies tobacco use. She occasionally drinks alcohol. She denies drug use. She is and her is here in the emergency department with her. 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 [facility] Medical History Osteoarthritis of left hip Osteoarthritis Atherosclerotic cardiovascular disease Surgical History Hx of colonoscopy Family History Family History Father Heart attack Lung cancer History of quadruple bypass Mother Afib H/O heart artery stent S/P ablation of atrial fibrillation Social History Social History Household Members: Family Housing: House Are you a primary home care specialist to a significant other at home: No Do you presently have visiting nurse or other home services: No Alcohol intake: current Alcohol intake frequency: a few times a month Patient Tobacco Use Status: Never used Tobacco Advance Directives: No Advance Directives Information Provided: No service: No Current occupational status: employed 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 Exam 2 Vital Signs: Vital Signs: Last Vital Signs Temp 98.7 F 11/16/23 00:03 Pulse 79 11/16/23 00:03 Resp 16 11/16/23 00:03 BP 101/61 11/16/23 00:03 Pulse Ox 97 11/16/23 00:03 O2 Del Method Room Air 11/16/23 00:03 BMI result Body Mass Index 26.7 Vital signs were normal Exam: General: Awake, alert in no distress Head: Normocephalic, atraumatic EENT: PERRL, Lids normal, sclera normal, conjunctiva normal, nose normal , ears normal, throat without erythema or exudates Neck: Supple, no adenopathy Lung: breath sounds symmetric, no wheezing, rales or rhonchi Chest: symmetric movement, nontender Heart: regular rate and rhythm, normal S1, S2 no murmurs or rubs Abdomen: soft, non-tender, nondistended, normal bowel sounds Back: no vertebral tenderness, no CVAT Extremities: Patient's left lower extremity is larger than the right which is consistent with her DVT, the left surgical wound had an occlusive dressing on it which when removed drained proximally 100-200 cc of serosanguineous fluid through the surgical wound. The patient has erythema surrounding the surgical wound extending into the left groin, the erythema is warm to the touch in his consistent with cellulitis Psych: Pleasant, cooperative Medications Administered Generic Name Dose Route Start Last Admin Trade Name Freq PRN Reason Stop Dose Admin Hydromorphone HCl 6 mg 11/16/23 03:13 11/16/23 03:43 Hydromorphone Hcl 2 Mg Tablet PO 6 mg Q3H PRN Administration Pain, Severe (Pain Scale 7-10) Lactated Ringer's 1,000 mls @ 150 mls/hr 11/15/23 23:45 11/16/23 02:49 Lr IVCONT 150 mls/hr .Q6H40M DANIEL Administration Cefepime HCl 2 gm/ Sodium 50 mls @ 100 mls/hr 11/16/23 03:30 11/16/23 03:43 Chloride IV 100 mls/hr Q8H DANIEL Administration Lorazepam 0.5 mg 11/16/23 03:11 11/16/23 03:43 Lorazepam 0.5 Mg Tablet PO 0.5 mg Q6H PRN Administration anxiety Discontinued Medications Generic Name Dose Route Start Last Admin Trade Name Ryleyq PRN Reason Stop Dose Admin Hydromorphone HCl 2 mg 11/15/23 23:23 11/16/23 00:05 Hydromorphone Hcl 1 Mg/Ml Syringe IVPUSH 11/15/23 23:24 2 mg ONCE STA Administration Protocol Vancomycin HCl 1,000 mg/ 535 mls @ 267.5 mls/hr 11/15/23 23:23 11/16/23 02:52 Vancomycin HCl 750 mg/ Sodium IV 11/16/23 01:22 Infused Chloride ONCE ONE Infusion Iohexol 100 ml 11/16/23 03:26 11/16/23 03:26 Iohexol 350 Mg/Ml 100 Ml Infus..Btl IV 11/16/23 03:27 100 ml ONCE ONE Administration Medical Decision Making Medical Decision Making MDM Narrative: 58-year-old female who presents emergency department for evaluation of swelling, pain, redness of her left thigh. The patient had a total hip replacement on 11/02/[address] Bell which was complicated by DVT of the left lower extremity diagnosed on 11/09/2023 in the ED. the patient was then noted to have cellulitis on 11/12/2023 and was started on Bactrim. Patient has had difficulty with pain since the surgical procedure in his been on Dilaudid 4 mg 3 to 4 times a day and Tylenol a 1000 mg 3 times a day with some improvement of her pain. Patient's pain and erythema increased and she also noted a bloody discharge from the wound. She was advised by the orthopedic physician processing assistant, Cinthia Nuñez to come to the emergency department for evaluation. When I took the dressing down from the surgical wound, she drained approximately 100-100 cc of serosanguineous fluid, the wound is intact with no dehiscence. Mark were still in place. Patient does have significant erythema. Vital signs were normal. Differential diagnosis: ?Includes but is not limited to cellulitis, seroma, abscess, propagation of DVT Following evaluation was ordered: CBC, CMP, lactic acid, PTT, PT/INR, blood cultures x2, wound culture of serosanguineous fluid draining from the left hip Patient was initially treated with the following: Dilaudid 2 mg IV, vancomycin 1750 mg IV, lactated Ringer's at 150 cc/hours Course: 01:55 My interpretation of the patient's laboratory evaluation is as follows: WBC was normal 9600. Microcytic anemia with an H&H of 9.1 and 28.1, MCV 79.4.-this is new since the patient's procedure on 11/02/2023, previous H&H was 13.2 and 41.1. Will add a type and screen and H&H will need to be followed, she does not need transfusions at this time Platelet count elevated 578,000. INR and PT elevated 1.4 and 16.8. BUN elevated at 18 otherwise unremarkable. Lactic acid was normal. I did discuss the patient's presentation over tiger text with the physician processing assistant, Cinthia Long. She recommended treatment with vancomycin and admission to hospitalist service and orthopedics will consult. Patient was discussed over tiger text with the covering hospitalist, Dr. Jostin Lucio. After this discussion, CT scan of the left femur was ordered to exclude necrotizing fasciitis, abscess. 05:24 CT scan revealed an elongated collection within the left hip just above the muscular fascia measuring 20.5 x 5.5 X 6.5 cm associated with some air lucencies superiorly and some adjacent air lucencies and left-sided proximal femoral skin thickening with subcutaneous infiltration/edema. I believe this finding is more consistent with a seroma as opposed to an abscess specially given the serosanguineous drainage noted earlier. Consult Healthcare Provider Management of the patient was discussed with: Hospitalist and Retail Area Manager Lab Data [facility] Lab Attestation statement: I reviewed the patient's lab results. 11/16/23 04:42 11/16/23 04:42 Labs: Lab Results 11/15/23 11/15/23 11/16/23 Range/Units 23:35 23:44 02:18 WBC 9.6 (4.8-10.8) X10*3/uL RBC 3.54 L (4.20-5.50) X10*6/uL Hgb 9.1 L (12.0-16.0) g/dl Hct 28.1 L (37.0-47.0) % MCV 79.4 L (80.0-98.0) fL MCH 25.7 L (27.0-33.0) pg MCHC 32.4 (31.0-35.0) g/dl RDW 13.9 (11.0-16.0) % Plt Count 578 H D (160-400) X10*3/uL MPV 9.2 L (9.4-12.3) fL Immature Gran % (Auto) 0.7 H (0.0-0.4) % Neut % (Auto) 68.4 (45-73) % Lymph % (Auto) 20.5 (20-40) % [place] % (Auto) 7.7 (2-11) % Eos % (Auto) 2.4 (0-4) % Baso % (Auto) 0.3 (0-2) % Lymph # (Auto) 2.0 (1.2-4.9) X10*3/uL [place] # (Auto) 0.7 (0.1-1.2) X10*3/uL Eos # (Auto) 0.2 (0.0-0.4) X10*3/uL Baso # (Auto) 0.0 (0.0-0.2) X10*3/uL Abs Immat Gran (auto) 0.07 H (0.00-0.03) X10*3/uL Absolute Neuts (auto) 6.5 (2.0-8.3) x10*3/uL Absolute Nucleated RBC 0.000 (0.0-0.012) X10*3/uL Nucleated RBC % (auto) 0.0 (0.0-0.2) /100WBC PT 16.8 H (11.1-13.3) SEC INR 1.4 H (0.9-1.1) APTT 36.3 (26.0-36.8) SEC Sodium 135 (135-145) mmol/L Potassium 4.5 (3.3-5.1) mmol/L Chloride 103 (96-108) mmol/L Carbon Dioxide 23 (22-29) mmol/L Anion Gap 14 (12-20) BUN 18 H (9-16) mg/dL Creatinine 0.99 (0.5-1.4) mg/dL Estim Creat Clear Calc 61.5 Estimated GFR 58 Random Glucose 95 (60-115) mg/dL Lactic Acid 0.7 (0.5-2.0) mmol/L Calcium 8.8 (8.4-10.2) mg/dL Total Bilirubin 0.1 (0.0-1.0) mg/dL AST 25 (5-31) U/L ALT 23 (0-31) U/L Alkaline Phosphatase 110 (39-117) U/L Total Protein 6.5 (6.5-8.0) g/dL Albumin 3.2 L (3.5-5.0) g/dL Blood Type B Positive Antibody Screen NEGATIVE Radiology Impression Discussion of test interpretation with radiology: I have reviewed the radiologist's reading. Radiologist Impression: CT femur LT w IV con IMPRESSION: 1. There is a left hip prosthesis in place. There is a small amount of air lucency seen within the femur just below the tip of the prosthesis. 2. There is an elongated collection within the left hip just above the muscular fascia measuring 20.5 x 5.5 X 6.5 cm associated with some air lucencies superiorly and some adjacent air lucencies. This is likely a postoperative collection. Infected collection is not excluded. 3. There is left-sided proximal femoral skin thickening with subcutaneous infiltration/edema. Dictated By: Fam Victor Independent Historian Clinical information obtained from an independent historian. History obtained from or confirmed by: Spouse External Record Review External record reviewed: Inpatient record and Office record Discharge Plan Discharge Clinical Impression: Cellulitis of left leg, Seroma, post-traumatic, Hip pain, left Anemia Qualifiers: Anemia type: unspecified type Qualified Code(s): D64.9 - Anemia, unspecified Patient Disposition: Admitted As Inpatient
[2023-11-15 23:42] LABS: MANUAL DIFF FLAG NO
[2023-11-15 23:45] LABS: Basophils Percent Auto 0.3 % (0-2); Eosinophils Absolute Auto 0.2 X10*3/uL (0.0-0.4); Eosinophils Percent Auto 2.4 % (0-4); Hematocrit 28.1 % (37.0-47.0); Hemoglobin 9.1 g/dl (12.0-16.0); Imm Gran Abs Auto 0.07 X10*3/uL (0.00-0.03); Imm Gran Pct Auto 0.7 % (0.0-0.4); Lymphocytes Percent Auto 20.5 % (20-40); Mean Corpuscular HGB Conc 32.4 g/dl (31.0-35.0); Mean Corpuscular Hemoglobin 25.7 pg (27.0-33.0); Mean Corpuscular Volume 79.4 fL (80.0-98.0); Mean Platelet Volume 9.2 fL (9.4-12.3); Monocytes Absolute Auto 0.7 X10*3/uL (0.1-1.2); Monocytes Percent Auto 7.7 % (2-11); Neutrophils Absolute Auto 6.5 x10*3/uL (2.0-8.3); Neutrophils Percent Auto 68.4 % (45-73); Platelet Count 578 X10*3/uL (160-400); Red Blood Count 3.54 X10*6/uL (4.20-5.50); Red Cell Distribution Width 13.9 % (11.0-16.0); White Blood Count 9.6 X10*3/uL (4.8-10.8)
[2023-11-15 23:54] LABS: Lactic Acid 0.7 mmol/L (0.5-2.0)
[2023-11-15 23:57] LABS: INTERNATIONAL NORM RATIO 1.4 (0.9-1.1); Prothrombin Time 16.8 SEC (11.1-13.3)
[2023-11-15 23:59] LABS: Partial Thromboplastin Time 36.3 SEC (26.0-36.8)
[2023-11-16 00:03] VITALS: BP 101/61; PULSE 79; RESP 16; TEMP 37.1; O2SAT 97
[2023-11-16 00:04] LABS: Alanine Aminotransferase 23 U/L (0-31); Albumin Level 3.2 g/dL (3.5-5.0); Alkaline Phosphatase 110 U/L (39-117); Anion Gap 14 (12-20); Aspartate Amino Transferase 25 U/L (5-31); Bilirubin Total 0.1 mg/dL (0.0-1.0); Blood Urea Nitrogen 18 mg/dL (9-16); Calcium 8.8 mg/dL (8.4-10.2); Carbon Dioxide 23 mmol/L (22-29); Chloride 103 mmol/L (96-108); Creatinine Clr Calc Pharmacy 61.5; Estimated Glomerular Filt Rate 58; Glucose Random 95 mg/dL (60-115); Potassium 4.5 mmol/L (3.3-5.1); Sodium 135 mmol/L (135-145); Total Protein 6.5 g/dL (6.5-8.0)
[2023-11-16] MEDS: HYDROmorphone HCl 1 MG/ML SYRINGE 2 MG IVPUSH (00:05)
[2023-11-16] MEDS: vancomycin HCL 1,000 MG, vancomycin HCL 750 MG in 0.9 % Sodium Chloride 500 ML 267.5 MG IV (00:08)
[2023-11-16] MEDS: Lactated Ringers 1,000 ML 150 ML IVCONT (02:49)
[2023-11-16] MEDS: iohexoL 350 MG/ML 100 ML INFUS..BTL IV (03:26)
[2023-11-16] MEDS: cefEPime HCl 2 GM in 0.9 % Sodium Chloride 50 ML IV ×3 (03:43→19:20)
[2023-11-16] MEDS: HYDROmorphone HCl 2 MG TABLET 6 MG PO ×5 (03:43→23:44)
[2023-11-16] MEDS: LORazepam 0.5 MG TABLET PO ×3 (03:43→19:21)
--- NOTE | 2023-11-16 04:08 | PM.IMHP ---
History of Present Illness Date of Service: 11/16/23 Attending physician on admission: Gabi Lucio Chief Complaint: Worsening swelling to the left hip Nilsa Leung is a 58 years old woman with no significant past medical history except for recent left total hip arthroplasty by Dr. Bell (Nov 02) presents to the emergency department complaining of bloody drainage from the surgical wound associated with significant swelling and redness to the surrounding areas and left thigh. She also reported events of sweating, chills and subjective fever. She has been taking Dilaudid 6 mg every 3-4 hr for the pain. A week ago she visited the ED due to worsening pain to her left hip and underwent a left lower extremities venous ultrasound that showed acute thrombus in the left peroneal and posterior tibial veins. She was advised to stop the aspirin and start treatment with Eliquis. Recently the patient was instructed by her visiting nurse to be evaluated at orthopedic surgeon office for possible cellulitis associated to recent surgical procedure. At the orthopedic office patient was diagnosed with cellulitis and was prescribed a course of Bactrim which she has been taking. She did not report any headache, chest pain, shortness on breath, abdominal pain, nausea, vomiting or diarrhea. In the ED, she was found to have vital signs. There is no leukocytosis. There is worsening anemia (10.2 -->9.1 over 6 days). Platelets are elevated. There are not electrolyte imbalances. Creatinine is normal. LFTs are normal. ED tx: Vancomycin 1750 mg IV, Dilaudid 2 mg IV Review of Systems Review of Systems: All 12 systems were reviewed and normal except as noted in HPI. [facility] Medical History Osteoarthritis of left hip Osteoarthritis Atherosclerotic cardiovascular disease Family History Father Heart attack Lung cancer History of quadruple bypass Mother Afib H/O heart artery stent S/P ablation of atrial fibrillation Surgical History Hx of colonoscopy Social History Household Members: Family Housing: House Are you a primary home care coordinator to a significant other at home: No Do you presently have visiting nurse or other home services: No Alcohol intake: current Alcohol intake frequency: a few times a month Patient Tobacco Use Status: Never used Tobacco Advance Directives: No Advance Directives Information Provided: No service: No Current occupational status: employed 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 - [employer] Meds Allergies Allergy/AdvReac Type Severity Reaction Status Date / Time Penicillins Allergy Intermediate Hives Verified 11/12/23 14:11 tramadol AdvReac Intermediate Hives Verified 11/12/23 14:11 Active Medications: Current Medications Acetaminophen (Acetaminophen 325 Mg Tablet) 975 mg PO Q6H PRN PRN Reason: Pain, Mild (Pain Scale 1-3) Apixaban (Apixaban 5 Mg Tablet) 5 mg PO BID [facility] Docusate Sodium (Docusate Sodium 100 Mg Capsule) 100 mg PO BID [facility] Gabapentin (Gabapentin 100 Mg Capsule) 100 mg PO BEDTIME [facility] Hydromorphone HCl (Hydromorphone Hcl 2 Mg Tablet) 6 mg PO Q3H PRN PRN Reason: Pain, Severe (Pain Scale 7-10) Last Admin: 11/16/23 03:43 Dose: 6 mg Lactated Ringer's (Lr) 1,000 mls @ 150 mls/hr IVCONT .Q6H40M [facility] Last Admin: 11/16/23 02:49 Dose: 150 mls/hr Cefepime HCl 2 gm/ Sodium (Chloride) 50 mls @ 100 mls/hr IV Q8H [facility] Last Admin: 11/16/23 03:43 Dose: 100 mls/hr Lorazepam (Lorazepam 0.5 Mg Tablet) 0.5 mg PO Q6H PRN PRN Reason: anxiety Last Admin: 11/16/23 03:43 Dose: 0.5 mg Pharmacy Consult (Consult Rx Vancomycin Dosing) 1 each MISCELLANE DAILY PRN PRN Reason: Consult order Sodium Chloride (0.9 % Sodium Chloride Flush 3 Ml Syringe) 3 ml IVFLUSH QSHIFT [facility] Home Medications Medication Instructions Recorded Confirmed Last Taken Type multivitamin 1 tab PO DAILY 09/04/22 10/23/23 Unknown History valacyclovir 1 gram tablet 1,000 mg PO DAILY PRN Cold Sores 06/12/23 10/23/23 Unknown History fiber tab PO 10/23/23 Unknown History valacyclovir 1 gram tablet 1,000 mg PO DAILY 11/16/23 11/16/23 Unknown History Physical Exam Vital Signs and Narrative: Vital Signs: Last Vital Signs Temp 98.7 F 11/16/23 00:03 Pulse 79 11/16/23 00:03 Resp 16 11/16/23 00:03 BP 101/61 11/16/23 00:03 Pulse Ox 97 11/16/23 00:03 O2 Del Method Room Air 11/16/23 00:03 BMI result Body Mass Index 26.7 Constitutional - Awake and Alert, No apparent distress HEENT - Normocephalic. Atraumatic. Pupils equally round. Sclera is normal. Heart - regular rate and rhythm. No murmurs. Lungs - Normal lung expansion, Normal respiratory effort, No respiratory distress, CTA bilaterally Extremities: Severe erythema and edema of the left hip + thigh. Increased warmth. Surgical wound closed, brandon in place. Serosanguineous fluid draining from the wound. Dorsalis pedis: Present. Musculoskeletal - Normal inspection, normal ROM Skin - no jaundice Neurological - Alert & oriented x3. No focal weakness grossly noted. Normal speech. Psychological - Appropriate affect Results Labs 11/15/23 23:35 11/15/23 23:35 Labs: Laboratory Results - last 24 hr 11/15/23 11/15/23 11/16/23 23:35 23:44 02:18 MCV 79.4 L MCH 25.7 L MCHC 32.4 RDW 13.9 Plt Count 578 H D MPV 9.2 L Immature Gran % (Auto) 0.7 H Neut % (Auto) 68.4 Lymph % (Auto) 20.5 [place] % (Auto) 7.7 Eos % (Auto) 2.4 Baso % (Auto) 0.3 Lymph # (Auto) 2.0 [place] # (Auto) 0.7 Eos # (Auto) 0.2 Baso # (Auto) 0.0 Abs Immat Gran (auto) 0.07 H Absolute Neuts (auto) 6.5 Absolute Nucleated RBC 0.000 Nucleated RBC % (auto) 0.0 PT 16.8 H INR 1.4 H APTT 36.3 Anion Gap 14 Estim Creat Clear Calc 61.5 Estimated GFR 58 Random Glucose 95 Lactic Acid 0.7 Calcium 8.8 Total Bilirubin 0.1 AST 25 ALT 23 Alkaline Phosphatase 110 Total Protein 6.5 Albumin 3.2 L Blood Type B Positive Antibody Screen NEGATIVE Assessment and Plan (1) Cellulitis of left leg: Status: Acute (2) Anemia: Qualifiers: Anemia type: unspecified type Qualified Code(s): D64.9 - Anemia, unspecified Status: Acute (3) Left peroneal vein thrombosis: Status: Acute Plan Nilsa Leung is a 58 years old woman s/p left total hip arthroplasty admitted with: Left hip/thigh cellulitis Admit to hospitalist service. Left lower extremity CT scan results ordered to assess for deep abscess, hematoma and/or necrotizing fasciitis -results pending. No evidence of severe sepsis: No leukocytosis, no fever no tachycardia. No lactic acidosis. Continue empiric IV antibiotic therapy with vancomycin. Will add cefepime. Orthopedic surgery consult. Worsening anemia. Left hip/thigh hematoma? Continue to monitor H&H Left peroneal and posterior tibial veins thrombus, provoked. Repeat lower extremities venous ultrasound. Continue Eliquis. DVT prophylaxis: On Eliquis Code status: Full Patient will need hospitalization for at least 2 midnights for left hip cellulitis related to recent surgery treatment with empiric IV antibiotic therapy and evaluation by Orthopedic surgery Service. Quality Stroke Does the patient have a stroke diagnosis?: No VTE Prior VTE?: No VTE Risk Level:: Medical - moderate - high VTE Device Contraindication: N/A - Device Ordered VTE Drug Contraindication: Treatment Not Indicated
[2023-11-16 04:50] LABS: MANUAL DIFF FLAG NO
[2023-11-16 04:58] LABS: Basophils Percent Auto 0.2 % (0-2); Eosinophils Absolute Auto 0.2 X10*3/uL (0.0-0.4); Eosinophils Percent Auto 2.2 % (0-4); Hematocrit 26.1 % (37.0-47.0); Hemoglobin 8.6 g/dl (12.0-16.0); Imm Gran Abs Auto 0.09 X10*3/uL (0.00-0.03); Lymphocytes Absolute Auto 1.4 X10*3/uL (1.2-4.9); Lymphocytes Percent Auto 16.4 % (20-40); Mean Corpuscular Hemoglobin 26.1 pg (27.0-33.0); Mean Corpuscular Volume 79.1 fL (80.0-98.0); Monocytes Absolute Auto 0.9 X10*3/uL (0.1-1.2); Monocytes Percent Auto 10.2 % (2-11); Platelet Count 515 X10*3/uL (160-400); Red Cell Distribution Width 13.8 % (11.0-16.0); White Blood Count 8.6 X10*3/uL (4.8-10.8)
[2023-11-16 05:09] LABS: Alanine Aminotransferase 20 U/L (0-31); Albumin Level 2.8 g/dL (3.5-5.0); Alkaline Phosphatase 102 U/L (39-117); Anion Gap 11 (12-20); Aspartate Amino Transferase 18 U/L (5-31); Bilirubin Total 0.2 mg/dL (0.0-1.0); Blood Urea Nitrogen 15 mg/dL (9-16); Calcium 8.3 mg/dL (8.4-10.2); Carbon Dioxide 25 mmol/L (22-29); Chloride 105 mmol/L (96-108); Estimated Glomerular Filt Rate > 60; Glucose Random 106 mg/dL (60-115); Potassium 4.6 mmol/L (3.3-5.1); Sodium 136 mmol/L (135-145); Total Protein 5.7 g/dL (6.5-8.0)
[2023-11-16 06:24] VITALS: BP 111/68; PULSE 75; RESP 16; O2SAT 98
--- NOTE | 2023-11-16 06:51 | PHA.PROG ---
Admission Date/Time: November 16, 2023 02:58 Indication: SKIN Weight in k.668 kg Serum Creatinine - Last 168 Hours 11/15/23 11/16/23 23:35 04:42 Creatinine 0.99 0.87 Estimated CrCl and GFR - Last 168 Hours 11/15/23 11/16/23 23:35 04:42 Estim Creat Clear Calc 61.5 70.0 Estimated GFR 58 > 60 Vancomycin Loading Dose: 1750 Current Vancomycin Dosing Regimen: 100 Q 12 Vancomycin Monitoring using AUC goal of 400 - 600 range with trough as surrogate marker: 595 Date and Time for next Vancomycin Level to be drawn: 11/17 @ 0900 Pharmacist Comments on Vancomycin Plan: Vancomycin dosing will take advantage of ScaleBase as a clinical decision support tool that uses Bayesian modeling to calculate individual patient's pharmacokinetic parameters and forecast the patient's drug concentration time course with the target goal AUC 24 range of 400 - 600 mg/L/hr.
--- NOTE | 2023-11-16 08:32 | PM.PNORT ---
Subjective Subjective Date of Service: 11/16/23 Principal diagnosis: left hip cellulitis Interval history: Ms. Leung presents with redness around her left hip incision as well as swelling in her left thigh after undergoing left total hip replacement surgery on 11/02/2023. The patient was placed on Bactrim last week after being seen in the office and diagnosed with left hip cellulitis. The patient has been on Eliquis for the last week because of a deep vein thrombosis in her left lower leg. She did have a fall while at home several days after her discharge. She denies any fevers or chills. Physical Exam Vital Signs: Vital Signs: Last Vital Signs Temp 98.7 F 11/16/23 00:03 Pulse 75 11/16/23 06:24 Resp 16 11/16/23 06:24 BP 111/68 11/16/23 06:24 Pulse Ox 98 11/16/23 06:24 O2 Del Method Room Air 11/16/23 06:24 BMI result Body Mass Index 26.7 Const: Other: Well-nourished well-developed very friendly female awake alert and oriented x3 in no acute distress, resting in bed in the emergency room on a stretcher Extrem: Other: Left hip examination shows diffuse redness around her incision, serous drainage from the most cephalad aspect of the incision, no purulence Procedures Date of Service Date of Service: 11/16/23 Progress Note: A&P Assessment and plan (1) Seroma, post-traumatic: Status: Acute Plan Ms. Leung presents with redness around her left hip incision after undergoing left total hip replacement surgery on 11/02/2023 most likely due to cellulitis. She also has a fluid collection superficial to her hip abductor muscles most likely due to a seroma, possibly secondary to the Eliquis that she is on for treatment of her deep vein thrombosis. I had a lengthy discussion with the patient regarding the treatment options. At this point the patient will be admitted to the medical service and placed on IV antibiotics. She can continue activities as tolerated. If the patient's symptoms do not improve over the next 48 hours we will further discuss the risks and benefits surgical washout. Erythrocyte sedimentation rate and C-reactive protein were ordered for later this morning. Quality Stroke Does the patient have a stroke diagnosis?: No VTE Prior VTE?: No VTE Risk Level:: Medical - moderate - high VTE Device Contraindication: N/A - Device Ordered VTE Drug Contraindication: Treatment Not Indicated
--- NOTE | 2023-11-16 08:46 | PHA.MEDREC ---
Pharmacy Consult ? Medication Reconciliation Pharmacy has completed the medication reconciliation. Confirmed with patient that the only thing that has changed since last admission 11/02 was to start eliquis (started 11/09) and to dc aspirin.
[2023-11-16 08:53] VITALS: BP 121/70; PULSE 70; RESP 14; TEMP 36.9; O2SAT 98
[2023-11-16 08:54] VITALS: BMI 30.3
[2023-11-16] MEDS: Apixaban 5 MG TABLET PO ×2 (09:09→20:23)
[2023-11-16] MEDS: Docusate Sodium 100 MG CAPSULE PO ×2 (09:09→20:23)
--- NOTE | 2023-11-16 09:28 | MHC.CM.PN ---
CM MET WITH PT AT BEDSIDE. PT LIVES WITH ADULT CHILDREN. ACTIVE WITH [facility] S/P LTHA, NOW RETURNS WITH CELLULITIS LEFT HIP. USING WALKER FOR MAJOR MOBILITY S/ P LTHA.+HCP ON FILE PCP DEWEY FUENTES. DP: HOME WITH RESUMPTION OF [facility]. PT HAS OWN RIDE HOME. CM WILL CONTINUE TO FOLLOW FOR ANY CHANGE IN DC PLAN/NEEDS
[2023-11-16 10:08] LABS: C Reactive Protein 18.21 mg/dL (< or = 0.50)
[2023-11-16 10:36] LABS: Erythrocyte Sedimentation Rate 92 MM/HR (0-20)
[2023-11-16] MEDS: vancomycin HCL 1,000 MG in 0.9 % Sodium Chloride 250 ML 270 MG IV ×2 (10:56→23:39)
--- NOTE | 2023-11-16 12:09 | PM.EVENT ---
Event Note Date of Service: 11/16/23 Event Note: Pt seen and examined, 58 /f who had LTHA on 11/04 and now has lolita-incision cellulitis (see picture in H and P). She on IV Vanco and Cefepim, cltures pending, additional intervention per ortho.. Can consider ID consult, chnage Apixiban to lovenox if planning procedure Time Spent With Patient Time: Total time managing care of this patient today ____ minutes.
[2023-11-16 15:34] VITALS: BP 126/59; PULSE 77; RESP 16; TEMP 37.4; O2SAT 98
--- NOTE | 2023-11-16 16:52 | PC.NURSE ---
Dressing changed per Ortho, Strike Through, excess drainage. Pt tolerated well.
[2023-11-16] MEDS: 0.9 % Sodium Chloride Flush 3 ML SYRINGE IVFLUSH ×2 (17:38→20:24)
[2023-11-16 20:00] VITALS: BP 121/65; PULSE 83; RESP 20; TEMP 37.2; O2SAT 94
[2023-11-16] MEDS: Gabapentin 100 MG CAPSULE PO (20:23)
[2023-11-17] MEDS: Acetaminophen 325 MG TABLET 975 MG PO ×2 (01:04→09:04)
[2023-11-17] MEDS: LORazepam 0.5 MG TABLET PO ×2 (01:04→21:43)
[2023-11-17 03:39] VITALS: BP 112/64; PULSE 73; RESP 16; TEMP 36; O2SAT 97
[2023-11-17] MEDS: cefEPime HCl 2 GM in 0.9 % Sodium Chloride 50 ML IV ×3 (04:24→19:45)
[2023-11-17 06:56] LABS: Hematocrit 30.3 % (37.0-47.0); Hemoglobin 9.9 g/dl (12.0-16.0); Mean Corpuscular HGB Conc 32.7 g/dl (31.0-35.0); Mean Corpuscular Hemoglobin 25.8 pg (27.0-33.0); Mean Corpuscular Volume 78.9 fL (80.0-98.0); Mean Platelet Volume 9.3 fL (9.4-12.3); Platelet Count 575 X10*3/uL (160-400); Red Blood Count 3.84 X10*6/uL (4.20-5.50); White Blood Count 7.4 X10*3/uL (4.8-10.8)
[2023-11-17 07:11] LABS: Creatinine Clr Calc Pharmacy 92.6; Estimated Glomerular Filt Rate > 60
[2023-11-17 07:29] VITALS: BP 125/72; PULSE 67; RESP 16; TEMP 36.6; O2SAT 97
--- NOTE | 2023-11-17 07:37 | PM.PNORT ---
Subjective Subjective Date of Service: 11/17/23 Principal diagnosis: left hip cellulitis Interval history: Nilsa is seen resting in bed this AM. She reports continued 'tightness' in her left thigh. Physical Exam Vital Signs: Vital Signs: Last Vital Signs Temp 98 F 11/17/23 07:29 Pulse 67 11/17/23 07:29 Resp 16 11/17/23 07:29 BP 125/72 11/17/23 07:29 Pulse Ox 97 11/17/23 07:29 O2 Del Method Room Air 11/17/23 07:29 BMI result Body Mass Index 30.3 Extrem: Other: Left thigh - dressing with serous staining, erythema improved compared to yesterday, thigh less tense to palpation Procedures Date of Service Date of Service: 11/17/23 Progress Note: A&P Assessment and plan (1) Cellulitis of left hip: Status: Acute Plan Ms. Leung has left hip cellulitis which has somewhat improved over the last day on IV antibiotics. I had a lengthy discussion with the patient this morning regarding the treatment options. Although the patient is clinically improving she may still need washout of her hip over the next few days if the improvement does not continue. Thus, I will discontinue the Eliquis and place her on Lovenox for treatment of her deep vein thrombosis. I will tentatively schedule her for a left hip washout on . Continue to mobilize as tolerated. Quality Stroke Does the patient have a stroke diagnosis?: No VTE Prior VTE?: No VTE Risk Level:: Medical - moderate - high VTE Device Contraindication: N/A - Device Ordered VTE Drug Contraindication: Treatment Not Indicated
--- NOTE | 2023-11-17 08:49 | HO.PM.IMPN ---
Subjective Subjective Date of Service: 11/17/23 Interval History: f/u on left hip post cellulitis area of erythema looks better today, but some drainage from the hip Physical Exam Vital Signs: Vital Signs: Last Vital Signs Temp 98 F 11/17/23 07:29 Pulse 67 11/17/23 07:29 Resp 16 11/17/23 07:29 BP 125/72 11/17/23 07:29 Pulse Ox 97 11/17/23 07:29 O2 Del Method Room Air 11/17/23 07:29 BMI result Body Mass Index 30.3 General: AO X 3, no acute distress Resp: CTA bilateral CVS: S1,S2,RRR GI: +BS, NT, no distention Skin: erythema of the left hip is better compare to prior day, however there was some serosanguinous drainage Neuro: motor grossly intact Psych: appropriate affect Objective Data Active Medications Acetaminophen (Acetaminophen 325 Mg Tablet) 975 mg PO Q6H PRN PRN Reason: Pain, Mild (Pain Scale 1-3) Last Admin: 11/17/23 01:04 Dose: 975 mg Documented By: LOTUS Docusate Sodium (Docusate Sodium 100 Mg Capsule) 100 mg PO BID [facility] Last Admin: 11/16/23 20:23 Dose: 100 mg Documented By: LOTUS Enoxaparin Sodium (Enoxaparin Sodium 80 Mg/0.8 Ml Syringe) 80 mg 1 mg/kg (80 mg) SUBCUT Q12H [facility] Gabapentin (Gabapentin 100 Mg Capsule) 100 mg PO BEDTIME [facility] Last Admin: 11/16/23 20:23 Dose: 100 mg Documented By: LOTUS Hydromorphone HCl (Hydromorphone Hcl 2 Mg Tablet) 6 mg PO Q3H PRN PRN Reason: Pain, Severe (Pain Scale 7-10) Last Admin: 11/16/23 23:44 Dose: 6 mg Documented By: LOTUS Cefepime HCl 2 gm/ Sodium (Chloride) 50 mls @ 100 mls/hr IV Q8H [facility] Last Infusion: 11/17/23 05:03 Dose: Infused Documented By: LOTUS Vancomycin HCl 1,000 mg/ (Sodium Chloride) 270 mls @ 270 mls/hr IV Q12H [facility] Last Infusion: 11/17/23 00:49 Dose: Infused Documented By: LOTUS Lorazepam (Lorazepam 0.5 Mg Tablet) 0.5 mg PO Q6H PRN PRN Reason: anxiety Last Admin: 11/17/23 01:04 Dose: 0.5 mg Documented By: LOTUS Pharmacy Consult (Consult Rx Vancomycin Dosing) 1 each MISCELLANE DAILY PRN PRN Reason: Consult order Sodium Chloride (0.9 % Sodium Chloride Flush 3 Ml Syringe) 3 ml IVFLUSH QSHIFT [facility] Last Admin: 11/16/23 20:24 Dose: 3 ml Documented By: LOTUS Labs 11/17/23 06:04 11/17/23 06:04 Labs: Laboratory Results - last 24 hr 11/16/23 11/17/23 09:37 06:04 MCV 78.9 L MCH 25.8 L MCHC 32.7 RDW 14.0 Plt Count 575 H MPV 9.3 L Absolute Nucleated RBC 0.000 Nucleated RBC % (auto) 0.0 ESR 92 H Estim Creat Clear Calc 92.6 Estimated GFR > 60 C-Reactive Protein 18.21 H Microbiology Microbiology Results: Microbiology 11/15/23 23:45 Gram Stain - Final Leg - Left Routine Culture - Preliminary Culture in progress. 11/15/23 23:44 Blood Culture - Preliminary Blood - Venous No growth after 24 hours. 11/15/23 23:35 Blood Culture - Preliminary Blood - Venous No growth after 24 hours. Assessment and Plan (1) Cellulitis of left hip: Status: Acute (2) Left peroneal vein thrombosis: Status: Acute Plan 58 years old woman s/p left total hip arthroplasty on 11/04 and subsequent left peroneal and posterior tibial veins thrombus on 11/09 and on eliquis and now with left hip cellulitis Left hip/thigh cellulitis-- CT show There is an elongated collection within the left hip just above the muscular fascia measuring 20.5 x 5.5 X 6.5 cm associated with some air lucencies superiorly and some adjacent air lucencies. This is likely a postoperative collection. Infected collection is not excluded. Elevated CRP 18 -Continue Cefepime and Vanco, ID consult -surgery to decide on possible exploration of the hip Left peroneal and posterior tibial veins thrombus--continue anticoagulation, transition to lovenox 1 mg /kg if procedure is planned and post procedure can be transitioned back to eliquis Anemia-H/H is better and no indication for transfusion given that the primary issue is post op in nature, care is beinng transitioned to surgical service, however the hospital sercice will continue to follow dvt prophylaxis, lovenox Quality Stroke Does the patient have a stroke diagnosis?: No VTE Prior VTE?: No VTE Risk Level:: Medical - moderate - high VTE Device Contraindication: N/A - Device Ordered VTE Drug Contraindication: Treatment Not Indicated
[2023-11-17 09:20] LABS: Hematocrit 29.6 % (37.0-47.0); Hemoglobin 9.6 g/dl (12.0-16.0); Mean Corpuscular HGB Conc 32.4 g/dl (31.0-35.0); Mean Corpuscular Hemoglobin 25.7 pg (27.0-33.0); Mean Corpuscular Volume 79.4 fL (80.0-98.0); Mean Platelet Volume 8.7 fL (9.4-12.3); Platelet Count 561 X10*3/uL (160-400); Red Blood Count 3.73 X10*6/uL (4.20-5.50); Red Cell Distribution Width 13.9 % (11.0-16.0)
[2023-11-17 09:27] LABS: INTERNATIONAL NORM RATIO 1.2 (0.9-1.1); Prothrombin Time 14.3 SEC (11.1-13.3)
[2023-11-17 09:30] LABS: Partial Thromboplastin Time 34.8 SEC (26.0-36.8)
[2023-11-17] MEDS: Enoxaparin Sodium 80 MG/0.8 ML SYRINGE SUBCUT ×2 (09:33→21:41)
[2023-11-17] MEDS: 0.9 % Sodium Chloride Flush 3 ML SYRINGE IVFLUSH ×3 (09:40→21:45)
[2023-11-17 09:44] LABS: Vancomycin Random 8.6 mcg/mL (15-20)
--- NOTE | 2023-11-17 10:06 | HE.PHANOTE ---
RE: VANCO DOSING Trough came back as 8.6. Dose is increased to 1500 mg q12h starting at 1100 11/17/23 (predicted AUC 483 and trough 10.9). Next random is scheduled @0900 11/18/23.
[2023-11-17] MEDS: vancomycin HCL 1,500 MG in 0.9 % Sodium Chloride 500 ML 333.33 MG IV ×2 (11:03→22:57)
--- NOTE | 2023-11-17 15:05 | P.CNID_ITS ---
History of Present Illness Data of Consult Service Date: 11/17/23 Requesting physician: Bear Bell Primary Care Provider: SHANICE Medina HPI Reason for consult: cellulitis left hip , fluid at operative site She presents with redness around left hip since 11/09. She had THR on 11/02 here She fell after surgery on right side. She also had DVT left side as well and CT shows 20x5x6.6 cm fluid collection. Review of Systems 2 Review of Systems: Yes all other systems are reviewed and are negative [facility] Past Medical History Medical History Osteoarthritis of left hip Osteoarthritis Atherosclerotic cardiovascular disease Family History Family History Father Heart attack Lung cancer History of quadruple bypass Mother Afib H/O heart artery stent S/P ablation of atrial fibrillation Family history: reviewed and not pertinent Surgical History Surgical History Hx of colonoscopy Social History Social History Household Members: Family Housing: House Are you a primary rn intensive care unit to a significant other at home: No Do you presently have visiting nurse or other home services: Yes Alcohol intake: current Alcohol intake frequency: a few times a month Comment: pt refuses bed/chair alarm Patient Tobacco Use Status: Never used Tobacco Use of substances other than those prescribed or required for medical reasons: No Currently Displaying Signs/Symptoms of Drug Intoxication Withdrawal: No Do you feel safe in your current relationship?: Yes Advance Directives: No Advance Directives Information Provided: No Do you have thoughts of harming others: None Do you have a plan to hurt others: No Plan Recently lost weight without trying: No Eating poorly because of decreased appetite: No Nutrition Risks: No Nutritional Risk Patient : No : No Poor oral hygiene: No service: No Current occupational status: employed 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 - [employer] 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 Allergies Allergy/AdvReac Type Severity Reaction Status Date / Time Penicillins Allergy Intermediate Hives Verified 11/12/23 14:11 tramadol AdvReac Intermediate Hives Verified 11/12/23 14:11 Active Medications: Current Medications Acetaminophen (Acetaminophen 325 Mg Tablet) 975 mg PO Q6H PRN PRN Reason: Pain, Mild (Pain Scale 1-3) Last Admin: 11/17/23 09:04 Dose: 975 mg Docusate Sodium (Docusate Sodium 100 Mg Capsule) 100 mg PO BID [facility] Last Admin: 11/17/23 09:33 Dose: Not Given Enoxaparin Sodium (Enoxaparin Sodium 80 Mg/0.8 Ml Syringe) 80 mg 1 mg/kg (80 mg) SUBCUT Q12H [facility] Last Admin: 11/17/23 09:33 Dose: 80 mg Gabapentin (Gabapentin 100 Mg Capsule) 100 mg PO BEDTIME [facility] Last Admin: 11/16/23 20:23 Dose: 100 mg Hydromorphone HCl (Hydromorphone Hcl 2 Mg Tablet) 6 mg PO Q3H PRN PRN Reason: Pain, Severe (Pain Scale 7-10) Last Admin: 11/16/23 23:44 Dose: 6 mg Hydromorphone HCl (Hydromorphone Hcl 4 Mg Tablet) 4 mg PO Q4H PRN PRN Reason: Pain, Moderate(Pain Scale 4-6) Cefepime HCl 2 gm/ Sodium (Chloride) 50 mls @ 100 mls/hr IV Q8H [facility] Last Infusion: 11/17/23 13:12 Dose: Infused Vancomycin HCl 1,500 mg/ (Sodium Chloride) 500 mls @ 333.333 mls/hr IV Q12H [facility] Last Infusion: 11/17/23 12:37 Dose: Infused Clindamycin Phosphate (Cleocin) 900 mg in 50 mls @ 50 mls/hr IV PREOP ONE Stop: 11/19/23 12:59 Lorazepam (Lorazepam 0.5 Mg Tablet) 0.5 mg PO Q6H PRN PRN Reason: anxiety Last Admin: 11/17/23 01:04 Dose: 0.5 mg Pharmacy Consult (Consult Rx Vancomycin Dosing) 1 each MISCELLANE DAILY PRN PRN Reason: Consult order Sodium Chloride (0.9 % Sodium Chloride Flush 3 Ml Syringe) 3 ml IVFLUSH QSHIFT [facility] Last Admin: 11/17/23 09:40 Dose: 3 ml Home Medications Medication Instructions Recorded Confirmed Last Taken Type multivitamin 1 tab PO DAILY 09/04/22 11/16/23 Unknown History valacyclovir 1 gram tablet 1,000 mg PO DAILY PRN Cold Sores 06/12/23 11/16/23 Unknown History fiber 1 tab PO DAILY 10/23/23 11/16/23 Unknown History hydromorphone 4 mg tablet 6 mg PO Q4-6H PRN pain 11/16/23 11/16/23 Unknown History sulfamethoxazole 800 1 tab PO BID 11/16/23 11/16/23 Unknown History mg-trimethoprim 160 mg tablet Physical Exam 2 Vital Signs: Vital Signs: Last Vital Signs Temp 98 F 11/17/23 07:29 Pulse 67 11/17/23 07:29 Resp 16 11/17/23 07:29 BP 125/72 11/17/23 07:29 Pulse Ox 97 11/17/23 07:29 O2 Del Method Room Air 11/17/23 07:29 BMI result Body Mass Index 30.3 Const: General: cooperative HEENT: Head: Yes normal to inspection Face and sinus: Yes normal facial exam Mouth: Normal oral and palatal mucosa present Teeth and gingiva: d entition normal Eyes: General: appearance normal, both eyes and all related structures P upils: Equal, round and reactive pupils present Resp: Effort & Inspection: normal respiratory effort Cardio: Rate: regular rate Rhythm: regular rhythm GI: Palpation (GI): Soft to palpation and nontender : General: Yes no CVA tenderness Back/Spine/Pelvis: Back: no CVA tenderness Skin: Other: erythema left hip area,clear fluid Neuro: General: moves all extremities Cranial nerves: Yes Equal, round and reactive pupils present Extrem: General: Yes normal to inspection Psych: Appearance: grossly normal Results Labs 11/17/23 09:09 11/17/23 06:04 Labs: Short CBC 11/17/23 11/17/23 Range/Units 06:04 09:09 WBC 7.4 8.0 (4.8-10.8) X10*3/uL Hgb 9.9 L 9.6 L (12.0-16.0) g/dl Hct 30.3 L 29.6 L (37.0-47.0) % Plt Count 575 H 561 H (160-400) X10*3/uL BMP 11/17/23 06:04 Creatinine 0.70 Microbiology Microbiology Results: Microbiology 11/15/23 23:45 Leg - Left Gram Stain - Final 11/15/23 23:45 Leg - Left Routine Culture - Preliminary Culture in progress. 11/15/23 23:44 Blood - Venous Blood Culture - Preliminary No growth after 24 hours. 11/15/23 23:35 Blood - Venous Blood Culture - Preliminary No growth after 24 hours. Assessment and Plan (1) Cellulitis of left hip: Status: Acute Possible deeper involvement with seroma fluid,could be hematoma or abscss Would continue Cefepime and Vancomycin possible six weeks for Vancomycin if cultures negative. No further Clindamycin at this time; (2) Left peroneal vein thrombosis: Status: Acute (3) Seroma, post-traumatic: Status: Acute
[2023-11-17 15:37] VITALS: BP 122/60; PULSE 67; RESP 20; TEMP 36.6; O2SAT 95
--- NOTE | 2023-11-17 17:45 | PC.NURSE ---
Pt requesting different dressing on surgical site.
--- NOTE | 2023-11-17 18:01 | PC.NURSE ---
OK per Ortho to change dressing to ABD pads.
[2023-11-17] MEDS: HYDROmorphone HCl 2 MG TABLET 6 MG PO (19:52)
[2023-11-17 20:00] VITALS: BP 110/57; PULSE 71; RESP 20; TEMP 37.1; O2SAT 98
[2023-11-17] MEDS: Docusate Sodium 100 MG CAPSULE PO (21:41)
[2023-11-17] MEDS: Gabapentin 100 MG CAPSULE PO (21:41)
[2023-11-18] MEDS: cefEPime HCl 2 GM in 0.9 % Sodium Chloride 50 ML IV ×3 (03:39→21:18)
[2023-11-18 03:41] VITALS: BP 122/61; PULSE 63; RESP 16; TEMP 36.7; O2SAT 97
[2023-11-18 05:56] LABS: Hematocrit 28.2 % (37.0-47.0); Hemoglobin 9.1 g/dl (12.0-16.0); Mean Corpuscular HGB Conc 32.3 g/dl (31.0-35.0); Mean Corpuscular Hemoglobin 25.9 pg (27.0-33.0); Mean Corpuscular Volume 80.1 fL (80.0-98.0); Mean Platelet Volume 9.1 fL (9.4-12.3); Platelet Count 613 X10*3/uL (160-400); Red Blood Count 3.52 X10*6/uL (4.20-5.50); Red Cell Distribution Width 14.1 % (11.0-16.0); White Blood Count 8.8 X10*3/uL (4.8-10.8)
[2023-11-18 06:12] LABS: Creatinine Clr Calc Pharmacy 91.3; Estimated Glomerular Filt Rate > 60
[2023-11-18 06:19] LABS: INTERNATIONAL NORM RATIO 1.1 (0.9-1.1)
[2023-11-18 06:45] LABS: Erythrocyte Sedimentation Rate 96 MM/HR (0-20)
[2023-11-18 06:51] VITALS: BP 129/64; PULSE 64; RESP 16; TEMP 36.6; O2SAT 100
--- NOTE | 2023-11-18 07:39 | P.PNOP_ITS ---
Subjective Subjective Date of Service: 11/18/23 Principal diagnosis: left hip cellulitis Interval history: Nilsa is seen resting in a reclining chair this morning. She reports that her left hip discomfort is somewhat improved. She has been able to get out of b ed with assistance. She would like to shower. Physical Exam Vital Signs: Vital Signs: Last Vital Signs Temp 98 F 11/18/23 06:51 Pulse 64 11/18/23 06:51 Resp 16 11/18/23 06:51 BP 129/64 11/18/23 06:51 Pulse Ox 100 11/18/23 06:51 O2 Del Method Room Air 11/18/23 06:51 BMI result Body Mass Index 30.3 Extrem: Other: Left hip examination shows continued dissipation of the diffuse cellulitis when compared to prior examinations, serous drainage from the most cephalad portion of the incision, minimal discomfort with active range of motion of her hip Procedures Date of Service Date of Service: 11/18/23 Progress Note: A&P Assessment and plan (1) Cellulitis of left hip: Status: Acute Plan Ms. Leung presents with left hip and thigh cellulitis after undergoing left total hip replacement surgery on 11/02/2023. At this point her symptoms continue to improve on the IV antibiotics. She has been off of her Eliquis for 24 hours. She is tentatively on the surgery schedule for tomorrow afternoon. I will re- evaluate her tomorrow morning. We will likely hold off on washout of her seroma if her symptoms continue to improve in light of her recent deep vein thrombosis. The patient is stable at present. Quality Stroke Does the patient have a stroke diagnosis?: No VTE Prior VTE?: No VTE Risk Level:: Medical - moderate - high VTE Device Contraindication: N/A - Device Ordered VTE Drug Contraindication: Treatment Not Indicated
--- NOTE | 2023-11-18 08:44 | HO.PM.IMPN ---
Subjective Subjective Date of Service: 11/18/23 Interval History: f/u on left hip post cellulitis area of erythema continues to improve, but some drainage from the hip no fever or chills Physical Exam Vital Signs: Vital Signs: Last Vital Signs Temp 98 F 11/18/23 06:51 Pulse 64 11/18/23 06:51 Resp 16 11/18/23 06:51 BP 129/64 11/18/23 06:51 Pulse Ox 100 11/18/23 06:51 O2 Del Method Room Air 11/18/23 06:51 BMI result Body Mass Index 30.3 General: AO X 3, no acute distress Resp: CTA bilateral CVS: S1,S2,RRR GI: +BS, NT, no distention Skin: erythema of the left hip is better compare to prior day, however there was some serosanguinous drainage Neuro: motor grossly intact Psych: appropriate affect Objective Data Active Medications Acetaminophen (Acetaminophen 325 Mg Tablet) 975 mg PO Q6H PRN PRN Reason: Pain, Mild (Pain Scale 1-3) Last Admin: 11/17/23 09:04 Dose: 975 mg Documented By: ARGELIA Bisacodyl (Bisacodyl 10 Mg Supp.Rect) 10 mg OK DAILY PRN PRN Reason: Constipation Docusate Sodium (Docusate Sodium 100 Mg Capsule) 100 mg PO BID [facility] Last Admin: 11/17/23 21:41 Dose: 100 mg Documented By: ROBINA Enoxaparin Sodium (Enoxaparin Sodium 80 Mg/0.8 Ml Syringe) 80 mg 1 mg/kg (80 mg) SUBCUT Q12H [facility] Last Admin: 11/17/23 21:41 Dose: 80 mg Documented By: ROBINA Gabapentin (Gabapentin 100 Mg Capsule) 100 mg PO BEDTIME [facility] Last Admin: 11/17/23 21:41 Dose: 100 mg Documented By: ROBINA Hydromorphone HCl (Hydromorphone Hcl 2 Mg Tablet) 6 mg PO Q3H PRN PRN Reason: Pain, Severe (Pain Scale 7-10) Last Admin: 11/17/23 19:52 Dose: 6 mg Documented By: ROBINA Hydromorphone HCl (Hydromorphone Hcl 4 Mg Tablet) 4 mg PO Q4H PRN PRN Reason: Pain, Moderate(Pain Scale 4-6) Last Admin: 11/18/23 03:39 Dose: 4 mg Documented By: ROBINA Cefepime HCl 2 gm/ Sodium (Chloride) 50 mls @ 100 mls/hr IV Q8H [facility] Last Infusion: 11/18/23 04:11 Dose: Infused Documented By: ROBINA Vancomycin HCl 1,500 mg/ (Sodium Chloride) 500 mls @ 333.333 mls/hr IV Q12H [facility] Last Infusion: 11/18/23 00:35 Dose: Infused Documented By: ROBINA Lorazepam (Lorazepam 0.5 Mg Tablet) 0.5 mg PO Q6H PRN PRN Reason: anxiety Last Admin: 11/17/23 21:43 Dose: 0.5 mg Documented By: ROBINA Pharmacy Consult (Consult Rx Vancomycin Dosing) 1 each MISCELLANE DAILY PRN PRN Reason: Consult order Polyethylene Glycol (Polyethylene Glycol 3350 17 Gm Powd.Pack) 17 gm PO DAILY [facility] Sodium Chloride (0.9 % Sodium Chloride Flush 3 Ml Syringe) 3 ml IVFLUSH QSHIFT [facility] Last Admin: 11/17/23 21:45 Dose: 3 ml Documented By: ROBINA Labs 11/18/23 05:11 11/18/23 05:11 Labs: Laboratory Results - last 24 hr 11/17/23 11/18/23 09:09 05:11 MCV 79.4 L 80.1 MCH 25.7 L 25.9 L MCHC 32.4 32.3 RDW 13.9 14.1 Plt Count 561 H 613 H MPV 8.7 L 9.1 L Absolute Nucleated RBC 0.000 0.000 Nucleated RBC % (auto) 0.0 0.0 ESR 96 H PT 14.3 H 13.0 INR 1.2 H 1.1 APTT 34.8 Estim Creat Clear Calc 91.3 Estimated GFR > 60 Random Vancomycin 8.6 L Microbiology Microbiology Results: Microbiology 11/15/23 23:44 Blood Culture - Preliminary Blood - Venous No growth after 48 hours. 11/15/23 23:35 Blood Culture - Preliminary Blood - Venous No growth after 48 hours. 11/15/23 23:45 Gram Stain - Final Leg - Left Routine Culture - Preliminary Culture in progress. Assessment and Plan (1) Cellulitis of left hip: Status: Acute (2) Left peroneal vein thrombosis: Status: Acute (3) Anemia: Status: Acute Plan 58 years old woman s/p left total hip arthroplasty on 11/04 and subsequent left peroneal and posterior tibial veins thrombus on 11/09 and on eliquis and now with left hip cellulitis Left hip/thigh cellulitis-- CT show There is an elongated collection within the left hip just above the muscular fascia measuring 20.5 x 5.5 X 6.5 cm associated with some air lucencies superiorly and some adjacent air lucencies. This is likely a postoperative collection. Infected collection is not excluded. 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 Abx up to 6 weeks, get a PICC line -surgery to decide on possible exploration of the hip Left peroneal and posterior tibial veins thrombus--continue anticoagulation, transition to lovenox 1 mg /kg if procedure is planned and post procedure can be transitioned back to eliquis Anemia-H/H is stable, no indication for transfusion at this time Constipation--bowel regimen with colace, miralax, mom dvt prophylaxis, lovenox Quality Stroke Does the patient have a stroke diagnosis?: No VTE Prior VTE?: No VTE Risk Level:: Medical - moderate - high VTE Device Contraindication: N/A - Device Ordered VTE Drug Contraindication: Treatment Not Indicated
[2023-11-18 09:22] LABS: Vancomycin Random 14.9 mcg/mL (15-20)
--- NOTE | 2023-11-18 09:43 | HE.PHANOTE ---
RE: VANCO DOSING Trough came back as 14.9, was predicted to be 13.1 (AUC 526). With trough of 14.9, AUC would be 598. Because of indication of skin, dose was decreased to 1250 mg q12h, starting @1100 on 11/18/23. Next random is scheduled @0900 on 11/19/23.
--- NOTE | 2023-11-18 10:55 | P.PICC_ITS ---
PICC Line Insertion NPICC Diagnosis: hip infection Indication: 6wks ABT Pertinent Labs: reviewed Technique: Following informed consent including risks, benefits and alternatives and using sterile technique including cap and mask, sterile gown, glove and drape, the right arm was prepped and draped in the usual sterile fashion of full barrier technique with G. Following completion of Eldred Protocol the skin and soft tissues were anesthetized with 1% Lidocaine plain. Using ultrasound guidance, right brachial vein access was obtained. Over an 0.018 wire through peel-away sheath, 4 fr single lumen PASV PICC line was positioned. Catheter length is 41cm internal length, 0cm external length, for a total trimmed length of 41cm. The procedure was performed in rm 272. Tip verification was performed by Billie Del Valle with Sherlock 3CG. Tip located in SVC. Ultrasound was used to document vein patency and for needle entry. A formal ultrasound picture and cardiac rhythm strip was recorded. [facility] [employer] has released the line for use and it is currently dressed with a StatLock, Tegaderm, and CHG disc. Verification has been performed for blood return and line patency. Arm Circumference: 29cm Equipment: Zigswitch PowerPICC SOLO catheter with sherlock 3CG Catheter Type: 4fr single lumen PASV Lot #: [id number]
[2023-11-18] MEDS: Enoxaparin Sodium 80 MG/0.8 ML SYRINGE SUBCUT (12:30)
[2023-11-18] MEDS: Docusate Sodium 100 MG CAPSULE PO ×2 (12:31→21:18)
[2023-11-18] MEDS: polyethylene glycoL 3350 17 GM POWD.PACK PO (12:39)
[2023-11-18] MEDS: 0.9 % Sodium Chloride Flush 3 ML SYRINGE IVFLUSH (12:47)
[2023-11-18] MEDS: vancomycin HCL 1,250 MG in 0.9 % Sodium Chloride 250 ML 166.67 MG IV ×2 (13:07→21:51)
--- NOTE | 2023-11-18 13:46 | MHC.CM.PN ---
EMR REVIEWED AND PER MD ROUNDS, PT IS NOT MEDICALLY CLEARED FOR DC HOME. PT WILL NEED LT ABT VIA PICC. [facility] REFERRAL SENT. [facility] IS FOLLOWING.
[2023-11-18 15:02] VITALS: BP 120/66; PULSE 73; RESP 18; TEMP 36.6; O2SAT 96
[2023-11-18] MEDS: Acetaminophen 325 MG TABLET 975 MG PO (17:43)
[2023-11-18] MEDS: Gabapentin 100 MG CAPSULE PO (21:18)
[2023-11-18] MEDS: LORazepam 0.5 MG TABLET PO (21:19)
[2023-11-18] MEDS: Heparin Sodium,Porcine Flush 50 UNITS, 0.9 % Sodium Chloride Flush 5 ML IVFLUSH (23:21)
[2023-11-19] VITALS (15 sets, daily range): BP systolic 109–149; BP diastolic 60–78; PULSE 54–78; RESP 16–20; TEMP 36–36.9; O2SAT 97–100
[2023-11-19] MEDS: cefEPime HCl 2 GM in 0.9 % Sodium Chloride 50 ML IV ×3 (05:11→19:14)
[2023-11-19] MEDS: Acetaminophen 325 MG TABLET 975 MG PO ×3 (05:18→19:28)
[2023-11-19 06:52] LABS: C Reactive Protein 7.24 mg/dL (< or = 0.50); Creatinine Clr Calc Pharmacy 93.9; Estimated Glomerular Filt Rate > 60
[2023-11-19 07:43] LABS: Erythrocyte Sedimentation Rate 91 MM/HR (0-20)
--- NOTE | 2023-11-19 09:08 | P.PNIM_ITS ---
Subjective Subjective Date of Service: 11/19/23 Interval History: f/u on left hip post cellulitis erythem continues to be better Physical Exam 2 Vital Signs: Vital Signs: Last Vital Signs Temp 96.8 F 11/19/23 08:00 Pulse 62 11/19/23 08:00 Resp 18 11/19/23 08:00 BP 113/61 11/19/23 08:00 Pulse Ox 100 11/19/23 08:00 O2 Del Method Room Air 11/19/23 08:00 BMI result Body Mass Index 30.3 alert, comfortable, no new issues, dressing changed earlier by surgery Objective Data Active Medications Acetaminophen (Acetaminophen 325 Mg Tablet) 975 mg PO Q6H PRN PRN Reason: Pain, Mild (Pain Scale 1-3) Last Admin: 11/19/23 05:18 Dose: 975 mg Documented By: AJAY Bisacodyl (Bisacodyl 10 Mg Supp.Rect) 10 mg UT DAILY PRN PRN Reason: Constipation Heparin Sodium (Porcine) 50 (units/ Sodium Chloride 5 ml) 0 units IVFLUSH QSHIFT [facility] Last Admin: 11/18/23 23:21 Dose: 50 unit Documented By: AJAY Docusate Sodium (Docusate Sodium 100 Mg Capsule) 100 mg PO BID [facility] Last Admin: 11/19/23 08:50 Dose: Not Given Documented By: KIRK Non-Admin Reason: NPO Enoxaparin Sodium (Enoxaparin Sodium 80 Mg/0.8 Ml Syringe) 80 mg 1 mg/kg (80 mg) SUBCUT Q12H [facility] Last Admin: 11/18/23 12:30 Dose: 80 mg Documented By: WOLFGANG Gabapentin (Gabapentin 100 Mg Capsule) 100 mg PO BEDTIME [facility] Last Admin: 11/18/23 21:18 Dose: 100 mg Documented By: AJAY Hydromorphone HCl (Hydromorphone Hcl 2 Mg Tablet) 6 mg PO Q3H PRN PRN Reason: Pain, Severe (Pain Scale 7-10) Last Admin: 11/17/23 19:52 Dose: 6 mg Documented By: STEFANIRISCecilia Hydromorphone HCl (Hydromorphone Hcl 4 Mg Tablet) 4 mg PO Q4H PRN PRN Reason: Pain, Moderate(Pain Scale 4-6) Last Admin: 11/18/23 23:23 Dose: 4 mg Documented By: AJAY Cefepime HCl 2 gm/ Sodium (Chloride) 50 mls @ 100 mls/hr IV Q8H [facility] Last Infusion: 11/19/23 05:54 Dose: Infused Documented By: AJAY Vancomycin HCl 1,250 mg/ (Sodium Chloride) 250 mls @ 166.667 mls/hr IV Q12H [facility] Last Infusion: 11/18/23 23:28 Dose: Infused Documented By: AJAY Clindamycin Phosphate (Cleocin) 900 mg in 50 mls @ 50 mls/hr IV PREOP ONE Stop: 11/19/23 13:59 Lorazepam (Lorazepam 0.5 Mg Tablet) 0.5 mg PO Q6H PRN PRN Reason: anxiety Last Admin: 11/18/23 21:19 Dose: 0.5 mg Documented By: AJAY Pharmacy Consult (Consult Rx Vancomycin Dosing) 1 each MISCELLANE DAILY PRN PRN Reason: Consult order Polyethylene Glycol (Polyethylene Glycol 3350 17 Gm Powd.Pack) 17 gm PO DAILY [facility] Last Admin: 11/19/23 08:50 Dose: Not Given Documented By: KIRK Non-Admin Reason: NPO Sodium Chloride (0.9 % Sodium Chloride Flush 3 Ml Syringe) 3 ml IVFLUSH QSHIFT [facility] Last Admin: 11/18/23 21:21 Dose: Not Given Documented By: AJAY Non-Admin Reason: picc flushed with 5ml ns Labs 11/18/23 05:11 11/19/23 05:58 Labs: Laboratory Results - last 24 hr 11/18/23 11/19/23 11/19/23 08:54 05:57 05:58 ESR 91 H Estim Creat Clear Calc 93.9 Estimated GFR > 60 C-Reactive Protein 7.24 H Random Vancomycin 14.9 L Microbiology Microbiology Results: Microbiology 11/15/23 23:45 Gram Stain - Final Leg - Left Routine Culture - Final Strep agalactiae (Grp B) Assessment and Plan (1) Cellulitis of left hip: Status: Acute (2) Left peroneal vein thrombosis: Status: Acute (3) Anemia: Status: Acute Plan 58 years old woman s/p left total hip arthroplasty on 11/04 and subsequent left peroneal and posterior tibial veins thrombus on 11/09 and on eliquis and now with left hip cellulitis Left hip/thigh cellulitis-- CT show There is an elongated collection within the left hip just above the muscular fascia measuring 20.5 x 5.5 X 6.5 cm associated with some air lucencies superiorly and some adjacent air lucencies. This is likely a postoperative collection. Infected collection is not excluded. ESR 91, CRP now 7 -Wound culture from 11/15... Group B strep -Continue Cefepime and Vanco, will discuss with ID about changing to Ceftriaxone -will require assisted Abx up to 6 weeks, PICC line placed on 11/18/23 - for wash out in OR today Left peroneal and posterior tibial veins thrombus--continue anticoagulation, transition to lovenox 1 mg /kg before procedure, and change back to eliquis when deem apropriate by the surgical team Anemia-H/H is stable, no indication for transfusion at this time Constipation--bowel regimen with colace, miralax, mom dvt prophylaxis, lovenox Quality Stroke Does the patient have a stroke diagnosis?: No VTE Prior VTE?: No VTE Risk Level:: Medical - moderate - high VTE Device Contraindication: N/A - Device Ordered VTE Drug Contraindication: Treatment Not Indicated
[2023-11-19 09:45] LABS: Vancomycin Random 12.2 mcg/mL (15-20)
[2023-11-19] MEDS: 0.9 % Sodium Chloride Flush 3 ML SYRINGE IVFLUSH (09:45)
[2023-11-19] MEDS: Heparin Sodium,Porcine Flush 50 UNITS, 0.9 % Sodium Chloride Flush 5 ML IVFLUSH (09:45)
--- NOTE | 2023-11-19 10:15 | HE.PHANOTE ---
RE: VANCO DOSING Random came back as 12.2. Predicted trough was 10.3 (predicted AUC 426) so with this trough of 12.2, AUC is 504. Dose is continued as 1250 mg q12h, next random is scheduled @2100 on 11/20/23.
[2023-11-19] MEDS: vancomycin HCL 1,250 MG in 0.9 % Sodium Chloride 250 ML 166.67 MG IV ×2 (11:40→22:24)
--- NOTE | 2023-11-19 13:21 | P.CONAN_ITS ---
HPI - Anesthesia Eval Consult details Narrative: i and d hip PMFSH Active Problems Active Problems: All Active Problems (Updated 11/17/23 @ 07:41 by Bear Bell MD) Cellulitis of left hip (Acute) Left peroneal vein thrombosis (Acute) Anemia (Acute) Hip pain, left (Acute) Seroma, post-traumatic (Acute) Cellulitis of left leg (Acute) History of total left hip replacement (Acute ~11/02/23) Trochanteric bursitis, left hip (Acute) Arthritis of left hip (Acute) Precordial chest pain (Acute) Atherosclerotic cardiovascular disease (Acute) Past Medical History Medical History Osteoarthritis of left hip Osteoarthritis Atherosclerotic cardiovascular disease Family History Family History Father Heart attack Lung cancer History of quadruple bypass Mother Afib H/O heart artery stent S/P ablation of atrial fibrillation Family history of problems with anesthesia: No Surgical History Surgical History Hx of colonoscopy History of Problems with Anesthesia: No Social History Social History Household Members: Family Housing: House Are you a primary director of healthcare systems to a significant other at home: No Do you presently have visiting nurse or other home services: Yes Alcohol intake: current Alcohol intake frequency: a few times a month Comment: pt refuses bed/chair alarm Patient Tobacco Use Status: Never used Tobacco Use of substances other than those prescribed or required for medical reasons: No Currently Displaying Signs/Symptoms of Drug Intoxication Withdrawal: No Do you feel safe in your current relationship?: Yes Are you DNR?: No Advance Directives: No Advance Directives Information Provided: No Do you have thoughts of harming others: None Do you have a plan to hurt others: No Plan Recently lost weight without trying: No Eating poorly because of decreased appetite: No Nutrition Risks: No Nutritional Risk Patient : No : No Poor oral hygiene: No service: No Current occupational status: employed 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 - [employer] Meds Allergies Allergy/AdvReac Type Severity Reaction Status Date / Time Penicillins Allergy Intermediate Hives Verified 11/12/23 14:11 tramadol AdvReac Intermediate Hives Verified 11/12/23 14:11 Active Medications: Current Medications Acetaminophen (Acetaminophen 325 Mg Tablet) 975 mg PO Q6H PRN PRN Reason: Pain, Mild (Pain Scale 1-3) Last Admin: 11/19/23 11:04 Dose: 975 mg Bisacodyl (Bisacodyl 10 Mg Supp.Rect) 10 mg AR DAILY PRN PRN Reason: Constipation Heparin Sodium (Porcine) 50 (units/ Sodium Chloride 5 ml) 0 units IVFLUSH QSHIFT [facility] Last Admin: 11/19/23 09:45 Dose: 50 unit Docusate Sodium (Docusate Sodium 100 Mg Capsule) 100 mg PO BID [facility] Last Admin: 11/19/23 08:50 Dose: Not Given Enoxaparin Sodium (Enoxaparin Sodium 80 Mg/0.8 Ml Syringe) 80 mg 1 mg/kg (80 mg) SUBCUT Q12H [facility] Last Admin: 11/18/23 12:30 Dose: 80 mg Gabapentin (Gabapentin 100 Mg Capsule) 100 mg PO BEDTIME [facility] Last Admin: 11/18/23 21:18 Dose: 100 mg Hydromorphone HCl (Hydromorphone Hcl 2 Mg Tablet) 6 mg PO Q3H PRN PRN Reason: Pain, Severe (Pain Scale 7-10) Last Admin: 11/17/23 19:52 Dose: 6 mg Hydromorphone HCl (Hydromorphone Hcl 4 Mg Tablet) 4 mg PO Q4H PRN PRN Reason: Pain, Moderate(Pain Scale 4-6) Last Admin: 11/18/23 23:23 Dose: 4 mg Cefepime HCl 2 gm/ Sodium (Chloride) 50 mls @ 100 mls/hr IV Q8H [facility] Last Infusion: 11/19/23 11:37 Dose: Infused Vancomycin HCl 1,250 mg/ (Sodium Chloride) 250 mls @ 166.667 mls/hr IV Q12H [facility] Last Admin: 11/19/23 11:40 Dose: 166.67 mls/hr Clindamycin Phosphate (Cleocin) 900 mg in 50 mls @ 50 mls/hr IV PREOP ONE Stop: 11/19/23 13:59 Lorazepam (Lorazepam 0.5 Mg Tablet) 0.5 mg PO Q6H PRN PRN Reason: anxiety Last Admin: 11/18/23 21:19 Dose: 0.5 mg Pharmacy Consult (Consult Rx Vancomycin Dosing) 1 each MISCELLANE DAILY PRN PRN Reason: Consult order Polyethylene Glycol (Polyethylene Glycol 3350 17 Gm Powd.Pack) 17 gm PO DAILY [facility] Last Admin: 11/19/23 08:50 Dose: Not Given Sodium Chloride (0.9 % Sodium Chloride Flush 3 Ml Syringe) 3 ml IVFLUSH QSHIFT [facility] Last Admin: 11/19/23 09:45 Dose: 3 ml Home Medications Medication Instructions Recorded Confirmed Last Taken Type multivitamin 1 tab PO DAILY 09/04/22 11/16/23 Unknown History valacyclovir 1 gram tablet 1,000 mg PO DAILY PRN Cold Sores 06/12/23 11/16/23 Unknown History fiber 1 tab PO DAILY 10/23/23 11/16/23 Unknown History hydromorphone 4 mg tablet 6 mg PO Q4-6H PRN pain 11/16/23 11/16/23 Unknown History sulfamethoxazole 800 1 tab PO BID 11/16/23 11/16/23 Unknown History mg-trimethoprim 160 mg tablet Exam Height,Weight and Vital Signs: Height 5 ft 4.5 in Weight 81.4 kg Last Vital Signs Temp 98.2 F 11/19/23 12:47 Pulse 59 11/19/23 12:47 Resp 18 11/19/23 12:47 BP 126/73 11/19/23 12:47 Pulse Ox 100 11/19/23 12:47 O2 Del Method Room Air 11/19/23 12:47 Pertinent Lab Results Pertinent Lab Results: Laboratory Tests 11/15/23 11/15/23 11/16/23 23:35 23:44 02:18 WBC 9.6 RBC 3.54 L Hgb 9.1 L Hct 28.1 L MCV 79.4 L MCH 25.7 L MCHC 32.4 RDW 13.9 Plt Count 578 H D MPV 9.2 L Immature Gran % (Auto) 0.7 H Neut % (Auto) 68.4 Lymph % (Auto) 20.5 [place] % (Auto) 7.7 Eos % (Auto) 2.4 Baso % (Auto) 0.3 Lymph # (Auto) 2.0 [place] # (Auto) 0.7 Eos # (Auto) 0.2 Baso # (Auto) 0.0 Abs Immat Gran (auto) 0.07 H Absolute Neuts (auto) 6.5 Absolute Nucleated RBC 0.000 Nucleated RBC % (auto) 0.0 ESR PT 16.8 H INR 1.4 H APTT 36.3 Sodium 135 Potassium 4.5 Chloride 103 Carbon Dioxide 23 Anion Gap 14 BUN 18 H Creatinine 0.99 Estim Creat Clear Calc 61.5 Estimated GFR 58 Random Glucose 95 Lactic Acid 0.7 Calcium 8.8 Total Bilirubin 0.1 AST 25 ALT 23 Alkaline Phosphatase 110 C-Reactive Protein Total Protein 6.5 Albumin 3.2 L Random Vancomycin Blood Type B Positive Antibody Screen NEGATIVE 11/16/23 11/16/23 11/17/23 04:42 09:37 06:04 WBC 8.6 7.4 RBC 3.30 L 3.84 L Hgb 8.6 L 9.9 L Hct 26.1 L 30.3 L MCV 79.1 L 78.9 L MCH 26.1 L 25.8 L MCHC 33.0 32.7 RDW 13.8 14.0 Plt Count 515 H 575 H MPV 9.0 L 9.3 L Immature Gran % (Auto) 1.0 H Neut % (Auto) 70.0 Lymph % (Auto) 16.4 L [place] % (Auto) 10.2 Eos % (Auto) 2.2 Baso % (Auto) 0.2 Lymph # (Auto) 1.4 [place] # (Auto) 0.9 Eos # (Auto) 0.2 Baso # (Auto) 0.0 Abs Immat Gran (auto) 0.09 H Absolute Neuts (auto) 6.0 Absolute Nucleated RBC 0.000 0.000 Nucleated RBC % (auto) 0.0 0.0 ESR 92 H PT INR APTT Sodium 136 Potassium 4.6 Chloride 105 Carbon Dioxide 25 Anion Gap 11 L BUN 15 Creatinine 0.87 0.70 Estim Creat Clear Calc 70.0 92.6 Estimated GFR > 60 > 60 Random Glucose 106 Lactic Acid Calcium 8.3 L Total Bilirubin 0.2 AST 18 ALT 20 Alkaline Phosphatase 102 C-Reactive Protein 18.21 H Total Protein 5.7 L Albumin 2.8 L Random Vancomycin Blood Type Antibody Screen 11/17/23 11/18/23 11/18/23 09:09 05:11 08:54 WBC 8.0 8.8 RBC 3.73 L 3.52 L Hgb 9.6 L 9.1 L Hct 29.6 L 28.2 L MCV 79.4 L 80.1 MCH 25.7 L 25.9 L MCHC 32.4 32.3 RDW 13.9 14.1 Plt Count 561 H 613 H MPV 8.7 L 9.1 L Immature Gran % (Auto) Neut % (Auto) Lymph % (Auto) [place] % (Auto) Eos % (Auto) Baso % (Auto) Lymph # (Auto) [place] # (Auto) Eos # (Auto) Baso # (Auto) Abs Immat Gran (auto) Absolute Neuts (auto) Absolute Nucleated RBC 0.000 0.000 Nucleated RBC % (auto) 0.0 0.0 ESR 96 H PT 14.3 H 13.0 INR 1.2 H 1.1 APTT 34.8 Sodium Potassium Chloride Carbon Dioxide Anion Gap BUN Creatinine 0.71 Estim Creat Clear Calc 91.3 Estimated GFR > 60 Random Glucose Lactic Acid Calcium Total Bilirubin AST ALT Alkaline Phosphatase C-Reactive Protein Total Protein Albumin Random Vancomycin 8.6 L 14.9 L Blood Type Antibody Screen 11/19/23 11/19/23 11/19/23 05:57 05:58 09:17 WBC RBC Hgb Hct MCV MCH MCHC RDW Plt Count MPV Immature Gran % (Auto) Neut % (Auto) Lymph % (Auto) [place] % (Auto) Eos % (Auto) Baso % (Auto) Lymph # (Auto) [place] # (Auto) Eos # (Auto) Baso # (Auto) Abs Immat Gran (auto) Absolute Neuts (auto) Absolute Nucleated RBC Nucleated RBC % (auto) ESR 91 H PT INR APTT Sodium Potassium Chloride Carbon Dioxide Anion Gap BUN Creatinine 0.69 Estim Creat Clear Calc 93.9 Estimated GFR > 60 Random Glucose Lactic Acid Calcium Total Bilirubin AST ALT Alkaline Phosphatase C-Reactive Protein 7.24 H Total Protein Albumin Random Vancomycin 12.2 L Blood Type Antibody Screen Airway Mallampati Class: II TM Dist: >3cm Neck ROM: Full Heart: rrr Lungs: cta Assessment and Plan Assessment Anesthesia Assessment: Anesthesia Plan Discussed and Chart Reviewed Final Anesthetic Review Family History of Problems with Anesthesia: No History of Problems with Anesthesia: No NPO: Yes ASA Class: II Final Preanesthetic Review: No Changes in Pt Med Stat, Meds/Allgs Chart Reviewed, Consent Obtained/Reviewed and Anes Risks/Benef Reviewed Patient Risk: Low Procedure Risk: Low Anesthetic Plan Anesthetic Plan: GA Disposition: Standard PACU
--- NOTE | 2023-11-19 13:46 | PM.PNORT ---
Subjective Subjective Date of Service: 11/19/23 Principal diagnosis: left hip cellulitis Interval history: Nilsa was evaluated earlier today. She states that she has been able to get out of bed on her own. She did shower yesterday. She denies any increase in her left hip discomfort. Physical Exam Vital Signs: Vital Signs: Last Vital Signs Temp 98.2 F 11/19/23 12:47 Pulse 59 11/19/23 12:47 Resp 18 11/19/23 12:47 BP 126/73 11/19/23 12:47 Pulse Ox 100 11/19/23 12:47 O2 Del Method Room Air 11/19/23 12:47 BMI result Body Mass Index 30.3 Extrem: Other: Left hip and thigh examination show continued decreased redness when compared to her prior exam, there is a moderate amount of serous drainage from the most cephalad part of her incision, no purulence, minimal discomfort with range of motion Procedures Date of Service Date of Service: 11/19/23 Progress Note: A&P Assessment and plan (1) Cellulitis of left hip: Status: Acute Plan Ms. Leung presents with improvement of her left hip cellulitis but continued serous drainage. I had a lengthy discussion with the patient regarding the treatment options. Because of the continued serous drainage I did recommend incision and irrigation of her left hip seroma with possible partial revision of the total hip arthroplasty. The patient wishes to proceed with the procedure. The patient will be continued on the antibiotics as per the Infectious Disease Service perioperatively. The patient is stable at present. Quality Stroke Does the patient have a stroke diagnosis?: No VTE Prior VTE?: No VTE Risk Level:: Medical - moderate - high VTE Device Contraindication: N/A - Device Ordered VTE Drug Contraindication: Treatment Not Indicated
[2023-11-19] MEDS: Clindamycin Phosphate/D5W 900 MG/50 ML PIGGYBACK 50 MG IV (14:00)
--- NOTE | 2023-11-19 15:46 | P.BOP_ITS ---
Brief Operative Note Date of Service: 11/19/23 Pre-op diagnosis: Subcutaneous left hip fluid collection status post left total hip arthroplasty performed on 11/02/2023 Post-op diagnosis: same Procedure: Incision and irrigation of left hip fluid collection Implants: none Surgeon: Bear Bell MD Anesthesia: GETA Was an Bilingual Kindergarten Teacher used for this Procedure?: No Estimated blood loss (mL): 100 Pathology: other (wound Cx x 2) Condition: stable Disposition: PACU
--- NOTE | 2023-11-19 15:47 | P.OP_ITS ---
Operative Note Operative Note Date of Service: 11/19/23 Narrative: After the patient was identified as Nilsa Leung and her left hip was initialed by myself the patient was brought to the operating room where general anesthesia via endotracheal tube was induced by the anesthesiologist in routine fashion. The patient was given 900 mg of IV clindamycin for infection prophylaxis because of her allergy to penicillins The patient was then gently rolled into the lateral position. An axillary roll was put into place. All bony prominences were well padded. The patient's pelvis was held securely with hip bolsters. The patient's left hip region and lower extremity were prepped a nd draped in sterile fashion. A #10 scalpel blade was then used to open the previous incision. Upon entry into the subcutaneous tissues there was a palpable pocket of serosanguineous fluid along the distal and posterior aspect of the incision. There was no palpable tract into the hip joint itself. The fascia jemal closure was intact. There was no purulent fluid. There was no necrotic tissue. Wound cultures of the subcutaneous tissues were taken. The subcutaneous tissues were irrigated with 6 L of fluid via pulse lavage. A 2nd #10 scalpel blade was then used to make a split in the fascia jemal. There was no fluid collection deep to the fascia jemal. The wound was once again irrigated with 3 more L of fluid. A FRENCH drain was then brought out through the anterior lateral aspect of the patient's thigh. The subcutaneous tissues were closed with #1 Vicryl and 0 Vicryl interrupted suture. The skin was closed with 2 0 simple and vertical mattress interrupted sutures. The FRENCH drain was connected. Dry sterile dressing was placed over the drain site and incision. The patient was gently rolled into the supine position. She was awoken and extubated in the operating room. She was transferred to the recovery room in stable condition.
[2023-11-19] MEDS: HYDROmorphone HCl 2 MG TABLET 6 MG PO (16:08)
[2023-11-19] MEDS: fentaNYL citrate/PF 100 MCG/2 ML VIAL 25 MCG IVPUSH ×4 (16:12→16:39)
[2023-11-19] MEDS: Docusate Sodium 100 MG CAPSULE PO (20:09)
[2023-11-19] MEDS: Gabapentin 100 MG CAPSULE PO (20:09)
[2023-11-19] MEDS: Apixaban 5 MG TABLET PO (20:09)
[2023-11-19] MEDS: HYDROmorphone HCl 0.5 MG/0.5 ML SYRINGE IV (20:22)
[2023-11-20] VITALS (7 sets, daily range): BP systolic 117–129; BP diastolic 57–81; PULSE 61–77; RESP 16–18; TEMP 36.1–36.8; O2SAT 96–100
[2023-11-20] MEDS: 0.9 % Sodium Chloride Flush 3 ML SYRINGE IVFLUSH ×2 (00:20→09:06)
[2023-11-20] MEDS: Heparin Sodium,Porcine Flush 50 UNITS, 0.9 % Sodium Chloride Flush 5 ML IVFLUSH ×2 (00:37→16:47)
[2023-11-20] MEDS: HYDROmorphone HCl 2 MG TABLET 6 MG PO (03:11)
[2023-11-20] MEDS: cefEPime HCl 2 GM in 0.9 % Sodium Chloride 50 ML IV ×2 (03:12→11:15)
[2023-11-20 06:45] LABS: MANUAL DIFF FLAG NO
[2023-11-20] MEDS: Acetaminophen 325 MG TABLET 975 MG PO ×3 (06:45→20:08)
[2023-11-20 06:56] LABS: Basophils Percent Auto 0.3 % (0-2); Eosinophils Absolute Auto 0.1 X10*3/uL (0.0-0.4); Eosinophils Percent Auto 1.2 % (0-4); Hematocrit 23.5 % (37.0-47.0); Hemoglobin 7.7 g/dl (12.0-16.0); Imm Gran Abs Auto 0.06 X10*3/uL (0.00-0.03); Imm Gran Pct Auto 0.7 % (0.0-0.4); Lymphocytes Absolute Auto 2.1 X10*3/uL (1.2-4.9); Lymphocytes Percent Auto 22.4 % (20-40); Mean Corpuscular HGB Conc 32.8 g/dl (31.0-35.0); Mean Corpuscular Hemoglobin 25.8 pg (27.0-33.0); Mean Corpuscular Volume 78.9 fL (80.0-98.0); Mean Platelet Volume 9.2 fL (9.4-12.3); Monocytes Absolute Auto 0.6 X10*3/uL (0.1-1.2); Monocytes Percent Auto 6.4 % (2-11); Neutrophils Absolute Auto 6.3 x10*3/uL (2.0-8.3); Platelet Count 498 X10*3/uL (160-400); Red Blood Count 2.98 X10*6/uL (4.20-5.50); Red Cell Distribution Width 14.1 % (11.0-16.0); White Blood Count 9.2 X10*3/uL (4.8-10.8)
[2023-11-20 07:00] LABS: C Reactive Protein 4.18 mg/dL (< or = 0.50); Creatinine Clr Calc Pharmacy 104.6; Estimated Glomerular Filt Rate > 60
[2023-11-20 07:45] LABS: Erythrocyte Sedimentation Rate 66 MM/HR (0-20)
[2023-11-20] MEDS: calcium polycarbophiL TABLET 1 TAB PO (09:05)
[2023-11-20] MEDS: polyethylene glycoL 3350 17 GM POWD.PACK PO (09:06)
[2023-11-20] MEDS: Apixaban 5 MG TABLET PO ×2 (09:06→20:02)
[2023-11-20] MEDS: Docusate Sodium 100 MG CAPSULE PO ×2 (09:06→20:02)
[2023-11-20] MEDS: Multivitamin TABLET 1 TAB PO (09:06)
--- NOTE | 2023-11-20 09:31 | HO.PM.IMPN ---
Subjective Subjective Date of Service: 11/20/23 Interval History: f/u on left hip post cellulitis erythema continues to be better, s/p washout yestrday with drain in place Physical Exam Vital Signs: Vital Signs: Last Vital Signs Temp 97 F 11/20/23 07:59 Pulse 61 11/20/23 07:59 Resp 18 11/20/23 07:59 BP 127/81 11/20/23 07:59 Pulse Ox 100 11/20/23 07:59 O2 Del Method Room Air 11/20/23 07:59 O2 Flow Rate 2 11/19/23 16:41 BMI result Body Mass Index 30.3 General: AO X 3, no acute distress Resp: CTA bilateral CVS: S1,S2,RRR GI: +BS, NT, no distention Skin: Left tight area dressing in place, drain in place Neuro: motor grossly intact Psych: appropriate affect Objective Data Active Medications Acetaminophen (Acetaminophen 325 Mg Tablet) 975 mg PO Q6H PRN PRN Reason: Pain, Mild (Pain Scale 1-3) Last Admin: 11/20/23 06:45 Dose: 975 mg Documented By: CELINE Apixaban (Apixaban 5 Mg Tablet) 5 mg PO BID [facility] Last Admin: 11/20/23 09:06 Dose: 5 mg Documented By: AKANKSHA Bisacodyl (Bisacodyl 10 Mg Supp.Rect) 10 mg MD DAILY PRN PRN Reason: Constipation Calcium Polycarbophil (Calcium Polycarbophil Tablet) 1 tab PO DAILY [facility] Last Admin: 11/20/23 09:05 Dose: 1 tab Documented By: AKANKSHA Heparin Sodium (Porcine) 50 (units/ Sodium Chloride 5 ml) 0 units IVFLUSH QSHIFT [facility] Last Admin: 11/20/23 09:14 Dose: Not Given Documented By: AKANKSHA Non-Admin Reason: Med Not Available Docusate Sodium (Docusate Sodium 100 Mg Capsule) 100 mg PO BID [facility] Last Admin: 11/20/23 09:06 Dose: 100 mg Documented By: AKANKSHA Gabapentin (Gabapentin 100 Mg Capsule) 100 mg PO BEDTIME [facility] Last Admin: 11/19/23 20:09 Dose: 100 mg Documented By: AMADOU Hydromorphone HCl (Hydromorphone Hcl 2 Mg Tablet) 6 mg PO Q3H PRN PRN Reason: Pain, Severe (Pain Scale 7-10) Last Admin: 11/20/23 03:11 Dose: 6 mg Documented By: CELINE Hydromorphone HCl (Hydromorphone Hcl 4 Mg Tablet) 4 mg PO Q4H PRN PRN Reason: Pain, Moderate(Pain Scale 4-6) Last Admin: 11/18/23 23:23 Dose: 4 mg Documented By: AJAY Hydromorphone HCl (Hydromorphone Hcl 0.5 Mg/0.5 Ml Syringe) 0.5 mg IV Q2H PRN PRN Reason: Pain, Severe (Pain Scale 7-10) Last Admin: 11/19/23 20:22 Dose: 0.5 mg Documented By: AMADOU Cefepime HCl 2 gm/ Sodium (Chloride) 50 mls @ 100 mls/hr IV Q8H [facility] Last Infusion: 11/20/23 03:42 Dose: Infused Documented By: CELINE Vancomycin HCl 1,250 mg/ (Sodium Chloride) 250 mls @ 166.667 mls/hr IV Q12H [facility] Last Infusion: 11/19/23 23:55 Dose: Infused Documented By: CELINE Lorazepam (Lorazepam 0.5 Mg Tablet) 0.5 mg PO Q6H PRN PRN Reason: anxiety Last Admin: 11/18/23 21:19 Dose: 0.5 mg Documented By: AJAY Morphine Sulfate (Morphine Sulfate Er 15 Mg Tablet.Er) 15 mg PO Q12H [facility] Last Admin: 11/20/23 05:47 Dose: Not Given Documented By: CELINE Non-Admin Reason: Patient Refused Multivitamins/Vitamin C (Multivitamin Tablet) 1 tab PO DAILY [facility] Last Admin: 11/20/23 09:06 Dose: 1 tab Documented By: AKANKSHA Nitroglycerin (Nitroglycerin 0.4 Mg Tab.Subl) 0.4 mg SUBLINGUAL Q5M PRN PRN Reason: chest pain Ondansetron HCl (Ondansetron Hcl 4 Mg/2 Ml Vial) 4 mg IVPUSH ONCE PRN PRN Reason: Nausea and Vomiting Pharmacy Consult (Consult Rx Vancomycin Dosing) 1 each MISCELLANE DAILY PRN PRN Reason: Consult order Polyethylene Glycol (Polyethylene Glycol 3350 17 Gm Powd.Pack) 17 gm PO DAILY [facility] Last Admin: 11/20/23 09:06 Dose: 17 gm Documented By: AKANKSHA Sodium Chloride (0.9 % Sodium Chloride Flush 3 Ml Syringe) 3 ml IVFLUSH QSHIFT [facility] Last Admin: 11/20/23 09:06 Dose: 3 ml Documented By: AKANKSHA Valacyclovir HCl (Valacyclovir Hcl 1,000 Mg Tablet) 1,000 mg PO DAILY PRN PRN Reason: Cold Sores Labs 11/20/23 05:59 11/20/23 05:59 Labs: Laboratory Results - last 24 hr 11/19/23 11/20/23 09:17 05:59 MCV 78.9 L MCH 25.8 L MCHC 32.8 RDW 14.1 Plt Count 498 H MPV 9.2 L Immature Gran % (Auto) 0.7 H Neut % (Auto) 69.0 Lymph % (Auto) 22.4 [place] % (Auto) 6.4 Eos % (Auto) 1.2 Baso % (Auto) 0.3 Lymph # (Auto) 2.1 [place] # (Auto) 0.6 Eos # (Auto) 0.1 Baso # (Auto) 0.0 Abs Immat Gran (auto) 0.06 H Absolute Neuts (auto) 6.3 Absolute Nucleated RBC 0.000 Nucleated RBC % (auto) 0.0 ESR 66 H Estim Creat Clear Calc 104.6 Estimated GFR > 60 C-Reactive Protein 4.18 H Random Vancomycin 12.2 L Microbiology Microbiology Results: Microbiology 11/19/23 Unknown Gram Stain - Final Hip Left Routine Culture - Preliminary No growth to date. 11/19/23 Unknown Gram Stain - Final Hip Left Routine Culture - Preliminary No growth to date. Assessment and Plan (1) Cellulitis of left hip: Status: Acute (2) Left peroneal vein thrombosis: Status: Acute (3) Anemia: Status: Acute Plan 58 years old woman s/p left total hip arthroplasty on 11/04 and subsequent left peroneal and posterior tibial veins thrombus on 11/09 and on eliquis and now with left hip cellulitis Left hip/thigh cellulitis-- CT show There is an elongated collection within the left hip just above the muscular fascia measuring 20.5 x 5.5 X 6.5 cm associated with some air lucencies superiorly and some adjacent air lucencies. This is likely a postoperative collection. Infected collection is not excluded. ESR 91, CRP now 7 -Wound culture from 11/15... Group B strep -Continue Cefepime and Vanco, will discuss with ID about changing to Ceftriaxone -will require chcf Abx up to 6 weeks, PICC line placed on 11/18/23 - Wash out in OR today Left peroneal and posterior tibial veins thrombus--continue anticoagulation, transitioned to lovenox 1 mg /kg before procedure. Transitioned back to eliquis Anemia--H/H is lower 7.7/, monitor closely Constipation--bowel regimen with colace, miralax, mom dvt prophylaxis, eliquis Quality Stroke Does the patient have a stroke diagnosis?: No VTE Prior VTE?: No VTE Risk Level:: Medical - moderate - high VTE Device Contraindication: N/A - Device Ordered VTE Drug Contraindication: Treatment Not Indicated
[2023-11-20 10:49] LABS: Magnesium 2.1 mg/dL (1.6-2.6)
[2023-11-20 11:20] LABS: B Type Natriuretic Peptide 55 pg/mL (<100)
[2023-11-20] MEDS: vancomycin HCL 1,250 MG in 0.9 % Sodium Chloride 250 ML 166.67 MG IV (12:05)
--- NOTE | 2023-11-20 13:57 | P.PNOP_ITS ---
Subjective Subjective Date of Service: 11/20/23 Principal diagnosis: left hip cellulitis Interval history: [place] is seen this afternoon resting comfortably in a reclining chair. She was up earlier today walking with a cane and the physical therapist. The patien t states that her left hip and thigh feel somewhat better than when compared to prior to her washout. She continues to get both IV and oral Dilaudid for her pain. Physical Exam Vital Signs: Vital Signs: Last Vital Signs Temp 97 F 11/20/23 07:59 Pulse 61 11/20/23 10:17 Resp 18 11/20/23 07:59 BP 127/81 11/20/23 10:17 Pulse Ox 100 11/20/23 10:17 O2 Del Method Room Air 11/20/23 07:59 O2 Flow Rate 2 11/19/23 16:41 BMI result Body Mass Index 30.3 Extrem: Other: Left hip examination shows that the dressing is clean dry and intact, no drainage on the dressing, FRENCH drain had 60 cc of serosanguineous drainage overnight Procedures Date of Service Date of Service: 11/20/23 Progress Note: A&P Assessment and plan (1) Cellulitis of left hip: Status: Acute Plan Ms. Leung is doing fairly well after undergoing washout of her left hip subcutaneous seroma yesterday. I plan to leave the FRENCH drain in place for the next few days to help prevent further accumulation of fluid. The patient will be continued on her current IV antibiotics as per the medical and infectious disease services. The patient may possibly be switched to IV ceftriaxone for 6 weeks at the time of discharge. Continue IV and oral Dilaudid for pain control. The patient can continue weight-bearing as tolerated. The patient is stable at present. Quality Stroke Does the patient have a stroke diagnosis?: No VTE Prior VTE?: No VTE Risk Level:: Medical - moderate - high VTE Device Contraindication: N/A - Device Ordered VTE Drug Contraindication: Treatment Not Indicated
--- NOTE | 2023-11-20 14:41 | MHC.CM.PN ---
EMR REVIEWED AND PER MD ROUNDS, PT NOT MEDICALLY CLEARED FOR DC. PT CURRENTLY HAS DRAIN AT L HIP SURGICAL SITE, PLAN FOR [facility] TO DO HOME IV TEACH ON 3/4 BEFORE DC. CM WILL CONTINUE TO FOLLOW FOR ANY CHANGE IN DC PLAN/NEEDS.
--- NOTE | 2023-11-20 15:05 | HO.POSTANES ---
Post Anesthesia Evaluation Post Anesthesia Evaluation Date of Service: 11/20/23 Vital Signs: Vital Signs Temp Pulse Resp BP Pulse Ox O2 Del Method 11/20/23 13:22 96 Room Air 11/20/23 10:17 61 127/81 100 11/20/23 07:59 97 F 61 18 127/81 100 Room Air 11/20/23 04:11 18 11/20/23 03:41 97.2 F 65 16 118/67 98 Room Air Anesthesia: General Mental Status: Awake Pain Control: Satisfactory Nausea/Vomiting: None Hydration: Adequate Anesthesia-Related Issues: No Anes. Related Issues
[2023-11-20] MEDS: cefTRIAXone sodium 2 GM in 0.9 % Sodium Chloride 50 ML IV (17:01)
[2023-11-20 19:42] LABS: CRP High Sensitivity >10.0 mg/L
[2023-11-20] MEDS: Gabapentin 100 MG CAPSULE PO (20:01)
[2023-11-20] MEDS: HYDROmorphone HCl 0.5 MG/0.5 ML SYRINGE IV (20:07)
--- NOTE | 2023-11-21 | ECG_ITS ---
Test Reason : chest pain Blood Pressure : / mmHG Vent. Rate : 071 BPM Atrial Rate : 071 BPM P-R Int : 164 ms QRS Dur : 072 ms QT Int : 390 ms P-R-T Axes : 069 049 035 degrees QTc Int : 423 ms Artifact in tracing Normal sinus rhythm Low voltage QRS cannot exclude old septal infarct, but could be from body habitus Borderline ECG No previous ECGs available Referred By: Reese Lin Electronically Signed By:GIRISH NEWSOME
[2023-11-21] MEDS: Heparin Sodium,Porcine Flush 50 UNITS, 0.9 % Sodium Chloride Flush 5 ML IVFLUSH ×4 (00:25→23:07)
[2023-11-21 02:45] VITALS: BP 133/66; PULSE 64; RESP 18; TEMP 36.3; O2SAT 99
[2023-11-21] MEDS: HYDROmorphone HCl 0.5 MG/0.5 ML SYRINGE IV (04:59)
[2023-11-21] MEDS: Acetaminophen 325 MG TABLET 975 MG PO ×2 (05:09→17:03)
[2023-11-21 06:50] LABS: Hematocrit 24.4 % (37.0-47.0); Hemoglobin 7.9 g/dl (12.0-16.0); Mean Corpuscular HGB Conc 32.4 g/dl (31.0-35.0); Mean Corpuscular Hemoglobin 26.2 pg (27.0-33.0); Mean Corpuscular Volume 81.1 fL (80.0-98.0); Mean Platelet Volume 9.2 fL (9.4-12.3); Platelet Count 479 X10*3/uL (160-400); Red Blood Count 3.01 X10*6/uL (4.20-5.50); Red Cell Distribution Width 14.1 % (11.0-16.0); White Blood Count 7.5 X10*3/uL (4.8-10.8)
[2023-11-21 07:00] VITALS: BP 133/66; PULSE 61; RESP 16; TEMP 36.1; O2SAT 100
[2023-11-21 07:07] LABS: Creatinine Clr Calc Pharmacy 99.7; Estimated Glomerular Filt Rate > 60
[2023-11-21] MEDS: Apixaban 5 MG TABLET PO ×2 (09:58→22:11)
[2023-11-21] MEDS: Docusate Sodium 100 MG CAPSULE PO ×2 (09:58→22:11)
[2023-11-21] MEDS: calcium polycarbophiL TABLET 1 TAB PO (09:58)
[2023-11-21] MEDS: Multivitamin TABLET 1 TAB PO (09:58)
[2023-11-21] MEDS: polyethylene glycoL 3350 17 GM POWD.PACK PO (09:59)
--- NOTE | 2023-11-21 10:18 | PM.EVENT ---
Event Note Date of Service: 11/21/23 Event Note: Patient expressed to Jorge mckee RN that she does not want to be seen by the on-call PA, Cinthia Long PA-C. A tiger text was sent to Dr. Bell stating this information and was not seen by myself this morning. [place] Text messages were discussed with Dr. Bell at 08:23 in regards to bloody collection. Dr. Bell responded stating that this is expected as she is on Eliquis. He would like to drain to remain in until at least tomorrow or Thursday. An additional message was sent to Dr. Bell at 09:53 and a [place] Text was placed at 10:23 to notify that the patient requested to not be seen by Cinthia Long PA-C. Time Spent With Patient Time: Total time managing care of this patient today ____ minutes.
--- NOTE | 2023-11-21 11:01 | HO.PM.IMPN ---
Subjective Subjective Date of Service: 11/21/23 Interval History: f/u on left hip post cellulitis erythema continues to be better, s/p washout with drain in place, unfortunately drain output has increased this morning and looks rather bloody with nearly 200 cc drained--surgery informed Physical Exam Vital Signs: Vital Signs: Last Vital Signs Temp 97 F 11/21/23 07:00 Pulse 61 11/21/23 07:00 Resp 16 11/21/23 07:00 BP 133/66 11/21/23 07:00 Pulse Ox 100 11/21/23 07:00 O2 Del Method Room Air 11/21/23 07:00 O2 Flow Rate 2 11/19/23 16:41 BMI result Body Mass Index 30.3 General: AO X 3, no acute distress Resp: CTA bilateral CVS: S1,S2,RRR GI: +BS, NT, no distention Skin: see extremity Neuro: motor grossly intact Psych: appropriate affect Extrem: Other: Left hip examination shows that the dressing is clean dry and intact, no drainage on the dressing, PAOLA drain had 200 cc of serosanguineous this morning Objective Data Active Medications Acetaminophen (Acetaminophen 325 Mg Tablet) 975 mg PO Q6H PRN PRN Reason: Pain, Mild (Pain Scale 1-3) Last Admin: 11/21/23 05:09 Dose: 975 mg Documented By: JOHN Apixaban (Apixaban 5 Mg Tablet) 5 mg PO BID [facility] Last Admin: 11/21/23 09:58 Dose: 5 mg Documented By: JONI Bisacodyl (Bisacodyl 10 Mg Supp.Rect) 10 mg [place] DAILY PRN PRN Reason: Constipation Calcium Polycarbophil (Calcium Polycarbophil Tablet) 1 tab PO DAILY [facility] Last Admin: 11/21/23 09:58 Dose: 1 tab Documented By: JONI Heparin Sodium (Porcine) 50 (units/ Sodium Chloride 5 ml) [facility] Last Admin: 11/21/23 09:58 Dose: 50 unit Documented By: JONI Docusate Sodium (Docusate Sodium 100 Mg Capsule) 100 mg PO BID [facility] Last Admin: 11/21/23 09:58 Dose: 100 mg Documented By: JONI Gabapentin (Gabapentin 100 Mg Capsule) 100 mg PO BEDTIME [facility] Last Admin: 11/20/23 20:01 Dose: 100 mg Documented By: AMADOU Hydromorphone HCl (Hydromorphone Hcl 4 Mg Tablet) 4 mg PO Q4H PRN PRN Reason: Pain, Moderate(Pain Scale 4-6) Last Admin: 11/18/23 23:23 Dose: 4 mg Documented By: AJAY Hydromorphone HCl (Hydromorphone Hcl 0.5 Mg/0.5 Ml Syringe) 0.5 mg IV Q2H PRN PRN Reason: Pain, Severe (Pain Scale 7-10) Last Admin: 11/21/23 04:59 Dose: 0.5 mg Documented By: JOHN Ceftriaxone Sodium 2 gm/ (Sodium Chloride) 50 mls @ 100 mls/hr IV Q24H [facility] Last Infusion: 11/20/23 17:48 Dose: Infused Documented By: AMADOU Morphine Sulfate (Morphine Sulfate Er 15 Mg Tablet.Er) 15 mg PO Q12H [facility] Last Admin: 11/21/23 05:34 Dose: Not Given Documented By: MORGAN Non-Admin Reason: Patient Refused Multivitamins/Vitamin C (Multivitamin Tablet) 1 tab PO DAILY [facility] Last Admin: 11/21/23 09:58 Dose: 1 tab Documented By: JONI Nitroglycerin (Nitroglycerin 0.4 Mg Tab.Subl) 0.4 mg SUBLINGUAL Q5M PRN PRN Reason: chest pain Ondansetron HCl (Ondansetron Hcl 4 Mg/2 Ml Vial) 4 mg IVPUSH ONCE PRN PRN Reason: Nausea and Vomiting Polyethylene Glycol (Polyethylene Glycol 3350 17 Gm Powd.Pack) 17 gm PO DAILY [facility] Last Admin: 11/21/23 09:59 Dose: 17 gm Documented By: JONI Sodium Chloride (0.9 % Sodium Chloride Flush 3 Ml Syringe) 3 ml IVFLUSH QSHIFT [facility] Last Admin: 11/21/23 10:00 Dose: Not Given Documented By: JONI Non-Admin Reason: Previously Administered Valacyclovir HCl (Valacyclovir Hcl 1,000 Mg Tablet) 1,000 mg PO DAILY PRN PRN Reason: Cold Sores Labs 11/21/23 06:02 11/21/23 06:02 Labs: Laboratory Results - last 24 hr 11/18/23 11/20/23 11/21/23 05:11 05:59 06:02 MCV 81.1 MCH 26.2 L MCHC 32.4 RDW 14.1 Plt Count 479 H MPV 9.2 L Absolute Nucleated RBC 0.000 Nucleated RBC % (auto) 0.0 Estim Creat Clear Calc 99.7 Estimated GFR > 60 C-React Prot High Sens >10.0 H B-Natriuretic Peptide 55 Blood Type B Positive Antibody Screen NEGATIVE Microbiology Microbiology Results: Microbiology 11/19/23 Unknown Gram Stain - Final Hip Left Routine Culture - Preliminary Culture in progress. 11/19/23 Unknown Gram Stain - Final Hip Left Routine Culture - Preliminary Culture in progress. 11/15/23 23:44 Blood Culture - Final Blood - Venous No growth after 5 days. 11/15/23 23:35 Blood Culture - Final Blood - Venous No growth after 5 days. Assessment and Plan (1) Cellulitis of left hip: Status: Acute (2) Left peroneal vein thrombosis: Status: Acute (3) Anemia: Status: Acute Plan 58 years old woman s/p left total hip arthroplasty on 11/04 and subsequent left peroneal and posterior tibial veins thrombus on 11/09 and on eliquis and now with left hip cellulitis Left hip/thigh cellulitis-- CT show There is an elongated collection within the left hip just above the muscular fascia measuring 20.5 x 5.5 X 6.5 cm associated with some air lucencies superiorly and some adjacent air lucencies. This is likely a postoperative collection. Infected collection is not excluded. ESR 91, CRP now 7 -Wound culture from 11/15... Group B strep -Continue Cefepime and Vanco, changed to Ceftriaxone 2 gram daily per ID recommendation -will require predatory animal exterminator Abx up to 6 weeks, PICC line placed on 11/18/23 - Wash out in OR today .. -increase PAOLA output surgery aware and to decide on continuing on anticoagualtion Left peroneal and posterior tibial veins thrombus--continue anticoagulation, transitioned to lovenox 1 mg /kg before procedure. Transitioned back to eliquis, may need to be on hold if H/H contines to trend down Anemia--H/H is lower H/H was essentially unchanged from yesterday, however given more drainage from paola, will checking H/H and transfuse if lower Constipation--bowel regimen with colace, miralax, mom dvt prophylaxis, eliquis that we may hold if H/H is trending down Quality Stroke Does the patient have a stroke diagnosis?: No VTE Prior VTE?: No VTE Risk Level:: Medical - moderate - high VTE Device Contraindication: N/A - Device Ordered VTE Drug Contraindication: Treatment Not Indicated
[2023-11-21 11:40] LABS: Hematocrit 24.6 % (37.0-47.0); Hemoglobin 7.8 g/dl (12.0-16.0)
[2023-11-21 14:01] VITALS: BP 139/70; PULSE 71; RESP 16; TEMP 37; O2SAT 100
[2023-11-21 14:41] LABS: Hematocrit 24.9 % (37.0-47.0)
[2023-11-21 15:02] LABS: Troponin-I High Sensitivity < 2.7 ng/L (<3.5-17.0)
[2023-11-21 15:35] VITALS: BP 126/65; PULSE 67; RESP 18; TEMP 36.9; O2SAT 99
[2023-11-21] MEDS: cefTRIAXone sodium 2 GM in 0.9 % Sodium Chloride 50 ML IV (16:53)
[2023-11-21] MEDS: 0.9 % Sodium Chloride Flush 3 ML SYRINGE IVFLUSH (16:53)
[2023-11-21 19:38] VITALS: BP 110/59; PULSE 75; RESP 18; TEMP 36.2; O2SAT 97
[2023-11-21] MEDS: Gabapentin 100 MG CAPSULE PO (22:12)
[2023-11-21 23:33] VITALS: BP 126/72; PULSE 67; RESP 18; TEMP 36.4; O2SAT 97
[2023-11-22 06:54] LABS: Creatinine Clr Calc Pharmacy 102.9; Estimated Glomerular Filt Rate > 60
[2023-11-22 06:55] VITALS: BP 115/56; PULSE 69; RESP 16; TEMP 36.4; O2SAT 100
[2023-11-22] MEDS: polyethylene glycoL 3350 17 GM POWD.PACK PO (08:38)
[2023-11-22] MEDS: 0.9 % Sodium Chloride Flush 3 ML SYRINGE IVFLUSH ×2 (08:38→20:35)
[2023-11-22] MEDS: Heparin Sodium,Porcine Flush 50 UNITS, 0.9 % Sodium Chloride Flush 5 ML IVFLUSH ×3 (08:39→20:36)
[2023-11-22 08:40] LABS: Hematocrit 25.6 % (37.0-47.0); Hemoglobin 8.2 g/dl (12.0-16.0); Mean Corpuscular Hemoglobin 25.9 pg (27.0-33.0); Mean Corpuscular Volume 80.8 fL (80.0-98.0); Mean Platelet Volume 8.9 fL (9.4-12.3); Platelet Count 500 X10*3/uL (160-400); Red Blood Count 3.17 X10*6/uL (4.20-5.50); Red Cell Distribution Width 14.3 % (11.0-16.0); White Blood Count 8.1 X10*3/uL (4.8-10.8)
[2023-11-22] MEDS: Docusate Sodium 100 MG CAPSULE PO ×2 (08:40→20:35)
[2023-11-22] MEDS: calcium polycarbophiL TABLET 1 TAB PO (08:40)
[2023-11-22] MEDS: Multivitamin TABLET 1 TAB PO (08:40)
[2023-11-22] MEDS: Acetaminophen 325 MG TABLET 975 MG PO ×2 (08:40→15:51)
[2023-11-22] MEDS: Apixaban 5 MG TABLET PO ×2 (08:40→20:35)
--- NOTE | 2023-11-22 10:13 | PM.PNORT ---
Subjective Subjective Date of Service: 11/22/23 Principal diagnosis: left hip cellulitis Interval history: Nilsa is seen sitting in a reclining chair this AM. She states that her left hip discomfort is improved from preop. Physical Exam Vital Signs: Vital Signs: Last Vital Signs Temp 97.5 F 11/22/23 06:55 Pulse 69 11/22/23 06:55 Resp 16 11/22/23 06:55 BP 115/56 L 11/22/23 06:55 Pulse Ox 100 11/22/23 06:55 O2 Del Method Room Air 11/22/23 06:55 O2 Flow Rate 2 11/19/23 16:41 BMI result Body Mass Index 30.3 Extrem: Other: Left hip exam shows that the surgical dressing is dry/clean, 50 cc's of sanguinous discharge in the FRENCH drain overnight Procedures Date of Service Date of Service: 11/22/23 Progress Note: A&P Assessment and plan (1) Cellulitis of left hip: Status: Acute Plan Ms. Leung continues to clinically improve after undergoing washout of her left hip on October. She can continue activities as tolerated. I will leave her FRENCH drain in place for now. Continue Dilaudid for pain control. Possible drain removal and discharge to home tomorrow if the patient continues to improve. The patient is stable at present. Quality Stroke Does the patient have a stroke diagnosis?: No VTE Prior VTE?: No VTE Risk Level:: Medical - moderate - high VTE Device Contraindication: N/A - Device Ordered VTE Drug Contraindication: Treatment Not Indicated
--- NOTE | 2023-11-22 10:57 | HO.PM.IMPN ---
Subjective Subjective Date of Service: 11/22/23 Interval History: f/u on left hip post cellulitis, no signficant drainage from jayce and overall is feeling better, no further chest pain Physical Exam Vital Signs: Vital Signs: Last Vital Signs Temp 97.5 F 11/22/23 06:55 Pulse 69 11/22/23 06:55 Resp 16 11/22/23 06:55 BP 115/56 L 11/22/23 06:55 Pulse Ox 100 11/22/23 06:55 O2 Del Method Room Air 11/22/23 06:55 O2 Flow Rate 2 11/19/23 16:41 BMI result Body Mass Index 30.3 General: AO X 3, no acute distress Resp: CTA bilateral CVS: S1,S2,RRR GI: +BS, NT, no distention Skin: dressing intact, Jayce with scant drainage Neuro: motor grossly intact Psych: appropriate affect Objective Data Active Medications Acetaminophen (Acetaminophen 325 Mg Tablet) 975 mg PO Q6H PRN PRN Reason: Pain, Mild (Pain Scale 1-3) Last Admin: 11/22/23 08:40 Dose: 975 mg Documented By: JONATHAN Apixaban (Apixaban 5 Mg Tablet) 5 mg PO BID [facility] Last Admin: 11/22/23 08:40 Dose: 5 mg Documented By: JONATHAN Bisacodyl (Bisacodyl 10 Mg Supp.Rect) 10 mg CO DAILY PRN PRN Reason: Constipation Calcium Polycarbophil (Calcium Polycarbophil Tablet) 1 tab PO DAILY [facility] Last Admin: 11/22/23 08:40 Dose: 1 tab Documented By: JONATHAN Heparin Sodium (Porcine) 50 (units/ Sodium Chloride 5 ml) 0 units IVFLUSH QSHIFT [facility] Last Admin: 11/22/23 08:39 Dose: 10 unit Documented By: JONATHAN Docusate Sodium (Docusate Sodium 100 Mg Capsule) 100 mg PO BID [facility] Last Admin: 11/22/23 08:40 Dose: 100 mg Documented By: JONATHAN Gabapentin (Gabapentin 100 Mg Capsule) 100 mg PO BEDTIME [facility] Last Admin: 11/21/23 22:12 Dose: 100 mg Documented By: AGUSTINA Hydromorphone HCl (Hydromorphone Hcl 4 Mg Tablet) 4 mg PO Q4H PRN PRN Reason: Pain, Moderate(Pain Scale 4-6) Last Admin: 11/22/23 05:06 Dose: 4 mg Documented By: AGUSTINA Hydromorphone HCl (Hydromorphone Hcl 0.5 Mg/0.5 Ml Syringe) 0.5 mg IV Q2H PRN PRN Reason: Pain, Severe (Pain Scale 7-10) Last Admin: 11/21/23 04:59 Dose: 0.5 mg Documented By: JOHN Ceftriaxone Sodium 2 gm/ (Sodium Chloride) 50 mls @ 100 mls/hr IV Q24H [facility] Last Infusion: 11/21/23 17:31 Dose: Infused Documented By: JONI Morphine Sulfate (Morphine Sulfate Er 15 Mg Tablet.Er) 15 mg PO Q12H [facility] Last Admin: 11/22/23 05:03 Dose: Not Given Documented By: AGUSTINA Non-Admin Reason: Patient Refused Multivitamins/Vitamin C (Multivitamin Tablet) 1 tab PO DAILY [facility] Last Admin: 11/22/23 08:40 Dose: 1 tab Documented By: JONATHAN Nitroglycerin (Nitroglycerin 0.4 Mg Tab.Subl) 0.4 mg SUBLINGUAL Q5M PRN PRN Reason: chest pain Ondansetron HCl (Ondansetron Hcl 4 Mg/2 Ml Vial) 4 mg IVPUSH ONCE PRN PRN Reason: Nausea and Vomiting Polyethylene Glycol (Polyethylene Glycol 3350 17 Gm Powd.Pack) 17 gm PO DAILY [facility] Last Admin: 11/22/23 08:38 Dose: 17 gm Documented By: JONATHAN Sodium Chloride (0.9 % Sodium Chloride Flush 3 Ml Syringe) 3 ml IVFLUSH QSHIFT [facility] Last Admin: 11/22/23 08:38 Dose: 3 ml Documented By: JONATHAN Valacyclovir HCl (Valacyclovir Hcl 1,000 Mg Tablet) 1,000 mg PO DAILY PRN PRN Reason: Cold Sores Labs 11/22/23 08:30 11/22/23 06:10 Labs: Laboratory Results - last 24 hr 11/21/23 11/22/23 11/22/23 14:34 06:10 08:30 MCV 80.8 MCH 25.9 L MCHC 32.0 RDW 14.3 Plt Count 500 H MPV 8.9 L Absolute Nucleated RBC 0.000 Nucleated RBC % (auto) 0.0 Estim Creat Clear Calc 102.9 Estimated GFR > 60 Troponin I High Sens < 2.7 Microbiology Microbiology Results: Microbiology 11/19/23 Unknown Gram Stain - Final Hip Left Routine Culture - Preliminary Culture in progress. 11/19/23 Unknown Gram Stain - Final Hip Left Routine Culture - Preliminary Culture in progress. Assessment and Plan (1) Cellulitis of left hip: Status: Acute (2) Left peroneal vein thrombosis: Status: Acute (3) Anemia: Status: Acute Plan 58 years old woman s/p left total hip arthroplasty on 11/04 and subsequent left peroneal and posterior tibial veins thrombus on 11/09 and on eliquis and now with left hip cellulitis Left hip/thigh cellulitis-- CT show There is an elongated collection within the left hip just above the muscular fascia measuring 20.5 x 5.5 X 6.5 cm associated with some air lucencies superiorly and some adjacent air lucencies. This is likely a postoperative collection. Infected collection is not excluded. ESR 91, CRP now 7 -Wound culture from 11/15... 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 -Continue Eliquis Anemia--H/H is slightly lower, no indication for transfusion at this time chest pain yester, ECG unremrakable, trop neg and no further episode Constipation--bowel regimen with colace, miralax, mom dvt prophylaxis, eliquis that we may hold if H/H is trending down Quality Stroke Does the patient have a stroke diagnosis?: No VTE Prior VTE?: No VTE Risk Level:: Medical - moderate - high VTE Device Contraindication: N/A - Device Ordered VTE Drug Contraindication: Treatment Not Indicated
[2023-11-22] MEDS: cefTRIAXone sodium 2 GM in 0.9 % Sodium Chloride 50 ML IV (15:51)
[2023-11-22 15:54] VITALS: BP 130/72; PULSE 62; RESP 18; TEMP 36.8; O2SAT 97
[2023-11-22 20:26] VITALS: BP 127/67; PULSE 62; RESP 18; TEMP 36.5; O2SAT 98
[2023-11-22] MEDS: Gabapentin 100 MG CAPSULE PO (20:34)
[2023-11-23 04:00] VITALS: BP 119/63; PULSE 65; RESP 16; TEMP 36.5; O2SAT 96
[2023-11-23] MEDS: Acetaminophen 325 MG TABLET 975 MG PO (05:10)
[2023-11-23 07:31] VITALS: BP 124/63; PULSE 63; RESP 16; TEMP 36.6; O2SAT 98
[2023-11-23] MEDS: Heparin Sodium,Porcine Flush 50 UNITS, 0.9 % Sodium Chloride Flush 5 ML IVFLUSH ×2 (08:38→15:33)
[2023-11-23] MEDS: polyethylene glycoL 3350 17 GM POWD.PACK PO (08:43)
[2023-11-23] MEDS: Docusate Sodium 100 MG CAPSULE PO (08:43)
[2023-11-23] MEDS: calcium polycarbophiL TABLET 1 TAB PO (08:43)
[2023-11-23] MEDS: Apixaban 5 MG TABLET PO (08:43)
[2023-11-23] MEDS: Multivitamin TABLET 1 TAB PO (08:43)
[2023-11-23 09:25] LABS: Hematocrit 27.5 % (37.0-47.0); Hemoglobin 8.8 g/dl (12.0-16.0); Mean Corpuscular Volume 81.4 fL (80.0-98.0); Mean Platelet Volume 9.5 fL (9.4-12.3); Platelet Count 540 X10*3/uL (160-400); Red Blood Count 3.38 X10*6/uL (4.20-5.50); Red Cell Distribution Width 14.5 % (11.0-16.0); White Blood Count 9.5 X10*3/uL (4.8-10.8)
--- NOTE | 2023-11-23 09:47 | P.PNIM_ITS ---
Subjective Subjective Date of Service: 11/23/23 Interval History: f/u on left hip cellulitis post hip replacement, no signficant drainage from jayce and overall is feeling better Physical Exam 2 Vital Signs: Vital Signs: Last Vital Signs Temp 97.9 F 11/23/23 07:31 Pulse 63 11/23/23 07:31 Resp 16 11/23/23 07:31 BP 124/63 11/23/23 07:31 Pulse Ox 98 11/23/23 07:31 O2 Del Method Room Air 11/23/23 07:31 O2 Flow Rate 2 11/19/23 16:41 BMI result Body Mass Index 30.3 General: AO X 3, no acute distress Resp: CTA bilateral CVS: S1,S2,RRR GI: +BS, NT, no distention Skin: dressing intact, Jayce with scant drainage Neuro: motor grossly intact Psych: appropriate affect Objective Data Active Medications Acetaminophen (Acetaminophen 325 Mg Tablet) 975 mg PO Q6H PRN PRN Reason: Pain, Mild (Pain Scale 1-3) Last Admin: 11/23/23 05:10 Dose: 975 mg Documented By: MARKEL Apixaban (Apixaban 5 Mg Tablet) 5 mg PO BID [facility] Last Admin: 11/23/23 08:43 Dose: 5 mg Documented By: TIFFANIE Bisacodyl (Bisacodyl 10 Mg Supp.Rect) 10 mg IA DAILY PRN PRN Reason: Constipation Calcium Polycarbophil (Calcium Polycarbophil Tablet) 1 tab PO DAILY [facility] Last Admin: 11/23/23 08:43 Dose: 1 tab Documented By: TIFFANIE Heparin Sodium (Porcine) 50 (units/ Sodium Chloride 5 ml) 0 units IVFLUSH QSHIFT [facility] Last Admin: 11/23/23 08:38 Dose: 50 unit Documented By: TIFFANIE Docusate Sodium (Docusate Sodium 100 Mg Capsule) 100 mg PO BID [facility] Last Admin: 11/23/23 08:43 Dose: 100 mg Documented By: TIFFANIE Gabapentin (Gabapentin 100 Mg Capsule) 100 mg PO BEDTIME [facility] Last Admin: 11/22/23 20:34 Dose: 100 mg Documented By: MARKEL Hydromorphone HCl (Hydromorphone Hcl 0.5 Mg/0.5 Ml Syringe) 0.5 mg IV Q2H PRN PRN Reason: Pain, Severe (Pain Scale 7-10) Last Admin: 11/21/23 04:59 Dose: 0.5 mg Documented By: JOHN Hydromorphone HCl (Hydromorphone Hcl 4 Mg Tablet) 4 mg PO Q4H PRN PRN Reason: Pain, Severe (Pain Scale 7-10) Last Admin: 11/23/23 06:38 Dose: 4 mg Documented By: MARKEL Ceftriaxone Sodium 2 gm/ (Sodium Chloride) 50 mls @ 100 mls/hr IV Q24H [facility] Last Infusion: 11/22/23 16:25 Dose: Infused Documented By: JONI Morphine Sulfate (Morphine Sulfate Er 15 Mg Tablet.Er) 15 mg PO Q12H [facility] Last Admin: 11/23/23 04:57 Dose: Not Given Documented By: MARKEL Non-Admin Reason: Patient Refused Multivitamins/Vitamin C (Multivitamin Tablet) 1 tab PO DAILY [facility] Last Admin: 11/23/23 08:43 Dose: 1 tab Documented By: TIFFANIE Nitroglycerin (Nitroglycerin 0.4 Mg Tab.Subl) 0.4 mg SUBLINGUAL Q5M PRN PRN Reason: chest pain Ondansetron HCl (Ondansetron Hcl 4 Mg/2 Ml Vial) 4 mg IVPUSH ONCE PRN PRN Reason: Nausea and Vomiting Polyethylene Glycol (Polyethylene Glycol 3350 17 Gm Powd.Pack) 17 gm PO DAILY [facility] Last Admin: 11/23/23 08:43 Dose: 17 gm Documented By: TIFFANIE Sodium Chloride (0.9 % Sodium Chloride Flush 3 Ml Syringe) 3 ml IVFLUSH QSHIFT [facility] Last Admin: 11/23/23 08:43 Dose: Not Given Documented By: TIFFANIE Non-Admin Reason: PICC Valacyclovir HCl (Valacyclovir Hcl 1,000 Mg Tablet) 1,000 mg PO DAILY PRN PRN Reason: Cold Sores Labs 11/23/23 08:48 11/22/23 06:10 Labs: Laboratory Results - last 24 hr 11/23/23 08:48 MCV 81.4 MCH 26.0 L MCHC 32.0 RDW 14.5 Plt Count 540 H MPV 9.5 Absolute Nucleated RBC 0.000 Nucleated RBC % (auto) 0.0 Hold Purple Top SEE NOTE Microbiology Microbiology Results: Microbiology 11/19/23 Unknown Gram Stain - Final Hip Left Routine Culture - Final Strep agalactiae (Grp B) 11/19/23 Unknown Gram Stain - Final Hip Left Routine Culture - Final Strep agalactiae (Grp B) Assessment and Plan (1) Cellulitis of left hip: Status: Acute (2) Left peroneal vein thrombosis: Status: Acute (3) Anemia: Status: Acute Plan 58 years old woman s/p left total hip arthroplasty on 11/04 and subsequent left peroneal and posterior tibial veins thrombus on 11/09 and on eliquis and now with left hip cellulitis Left hip/thigh cellulitis-- CT show There is an elongated collection within the left hip just above the muscular fascia measuring 20.5 x 5.5 X 6.5 cm associated with some air lucencies superiorly and some adjacent air lucencies. This is likely a postoperative collection. Infected collection is not excluded. ESR 91, CRP now 7 -Wound culture from 11/15... 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 -Continue Eliquis Anemia--H/H, improving and expected to return to base chest pain 3/2, ECG unremrakable, trop neg and no further episode Constipation--bowel regimen with colace, miralax, mom dvt prophylaxis, eliquis that we may hold if H/H is trending down From medical Quality Stroke Does the patient have a stroke diagnosis?: No VTE Prior VTE?: No VTE Risk Level:: Medical - moderate - high VTE Device Contraindication: N/A - Device Ordered VTE Drug Contraindication: Treatment Not Indicated
[2023-11-23 10:35] VITALS: BP 113/58
[2023-11-23 10:52] VITALS: BP 86/64; PULSE 88
--- NOTE | 2023-11-23 13:02 | MHC.CM.PN ---
Patient will discharge today with IV ABX. [facility] has provided the infusion education. The pt did very well. [facility]. The patient will receive Ceftriaxone prior to discharge this afternoon. The patient has arranged for transportation home.
--- NOTE | 2023-11-23 14:46 | P.DS_ITS ---
DS: Providers Provider Date of Service: 11/23/23 Date of admission: 11/16/23 02:58 Primary care physician: SHANICE Medina Consults: 11/16/23 04:41 Consult to Orthotics Routine Consulting Provider: Bear Bell Reason for consultation: Left hip cellulitis s/p hip surgery Has provider been notified: Yes 11/17/23 09:03 Consult to Infectious Diseases Routine Consulting Provider: [facility] Infectious Disease Reason for consultation: cellulitis of the hip Has provider been notified: No DS: Diagnosis Discharge Diagnosis (1) Cellulitis of left hip: Status: Acute (2) Left peroneal vein thrombosis: Status: Acute (3) Anemia: Status: Acute DS: Summary Hospital Course Hospital Course: Ms. Leung presented to the ED on 11/16/23 with redness around her left hip incision as well as swelling in her left thigh after undergoing left total hip replacement surgery on 11/02/2023. The patient was placed on PO Bactrim on 11/12/23 after being seen in the office and diagnosed with left hip cellulitis. The patient was also diagnosed with a DVT in the left lower leg on 11/09/23 and has been on Eliquis. She did have a fall while at home several days after her discharge. While in the ED on 11/15/[address] scan was obtained and revealed a seroma. ID consult was placed and the patient was seen on 11/17/23 with IV abx recommendations. Eliquis was held beginning on 11/16/23 with anticipation of bringing the patient to the operating room to wash out the seroma. She was started on IV abx for cellulitis and a PICC line was placed on 11/18/23. On 11/19/23 the patient was brought to the OR for irrigation and debridement of subcutaneous left hip fluid and placement of FRENCH drain. Later that evening she was restarted on the Eliquis 5mg PO BID. She was transferred to the PACU and then to the floor to recover. Her vitals were stable, afebrile at 97.9. Labs were unremarkable. Prior to discharge the FRENCH drain was pulled at bedside with no complications. The patient tolerated the procedure well. A new dressing was applied. She will Continue her Eliquis 5mg po BID until further instruction by her PCP. She received physical therapy services while in the hospital. The plan was for the patient to be discharged home with VNA services. Time Attestation Discharge Coordination Time: discharge time of ____ minutes Quality: Safe Use of Opioids Does Pt have an Active Cancer Diagnosis on the Problem List?: No Quality: Stroke Does the patient have a stroke diagnosis?: No Physical Exam Vital Signs: Vital Signs: Last Vital Signs Temp 97.9 F 11/23/23 07:31 Pulse 88 11/23/23 10:52 Resp 16 11/23/23 07:31 BP 86/64 L 11/23/23 10:52 Pulse Ox 98 11/23/23 07:31 O2 Del Method Room Air 11/23/23 07:31 O2 Flow Rate 2 11/19/23 16:41 BMI result Body Mass Index 30.3 Extrem: Other: Left hip exam shows that the surgical dressing is dry/clean, 50 cc's of sanguinous discharge in the FRENCH drain overnight DS: Data Data Completed and Pending Completed studies during hospitalization [Text1]: Procedures Replacement of Left Hip Joint with Ceramic on Polyethylene Synthetic Substitute, Uncemented, Open Approach (11/02/23) Labs on day of discharge: Laboratory Results - last 24 hr 11/23/23 08:48 WBC 9.5 RBC 3.38 L Hgb 8.8 L Hct 27.5 L MCV 81.4 MCH 26.0 L MCHC 32.0 RDW 14.5 Plt Count 540 H MPV 9.5 Absolute Nucleated RBC 0.000 Nucleated RBC % (auto) 0.0 Hold Purple Top SEE NOTE Discharge Plan Discharge Anticipated Discharge Date/Time: 11/23/23 17:52 Patient Disposition: Home Health Service Discharge Diagnosis: Cellulitis left hip, seroma left hip Referrals: [facility] [Outside] - 1 Week Discharge Medications: New acetaminophen 325 mg Tablet 975 mg PO Q6H PRN (Reason: Pain, Mild (Pain Scale 1-3)) 30 Days Qty: 380 0RF ceftriaxone 2 gram Recon Soln 2 g IV Q24H 42 Days Qty: 60 0RF bisacodyl [Gentle Laxative (bisacodyl)] 10 mg Suppository 10 mg NM DAILY PRN (Reason: Constipation) 30 Days Qty: 30 0RF docusate sodium 100 mg Capsule 100 mg PO BID 30 Days Qty: 60 0RF polyethylene glycol 3350 17 gram Powder In Packet 17 g PO DAILY 30 Days Qty: 30 0RF Eliquis 5 mg Tablet 5 mg PO BID 30 Days Qty: 60 0RF morphine 15 mg Tablet Extended Release 15 mg PO Q12H 7 Days Qty: 14 0RF Rx Instructions: Partial Fill upon patient request. hydromorphone 4 mg Tablet 4 mg PO Q4H PRN (Reason: Pain, Severe (Pain Scale 7-10)) 7 Days Qty: 42 0RF Rx Instructions: Partial Fill upon patient request. lorazepam 0.5 mg tablet 0.5 mg PO Q6H PRN (Reason: anxiety) 7 Days Qty: 28 0RF cyclobenzaprine 5 mg tablet 5 mg PO TID PRN (Reason: muscle spasm) Qty: 15 0RF Continued (DME) walker Misc See Rx Instructions .ROUTE .MEDSUPPLY Qty: 1 0RF Rx Instructions: Folding front wheeled walker (DME) Raised toliet seat See Rx Instructions .ROUTE .MEDSUPPLY Qty: 1 0RF Rx Instructions: As directed fiber Tablet,Chewable 1 tab PO DAILY docusate sodium 100 mg Capsule 100 mg PO BID 7 Days Qty: 14 0RF celecoxib 200 mg Capsule 200 mg PO BID 30 Days Qty: 60 0RF gabapentin 100 mg Capsule 100 mg PO BEDTIME 14 Days Qty: 14 0RF Eliquis 5 mg tablet 5 mg PO BID Qty: 42 0RF Rx Instructions: Take 2 (10 mg) tablets twice a day for [address] Take 1 tablet twice a day (5 mg twice a day) multivitamin Tablet 1 tab PO DAILY valacyclovir 1 gram tablet 1,000 mg PO DAILY PRN (Reason: Cold Sores) nitroglycerin 0.4 mg tablet, sublingual 0.4 mg sublingual Q5M PRN (Reason: chest pain) Qty: 30 5RF Rx Instructions: do not exceed 3 doses per episode Discontinued lorazepam 0.5 mg tablet 0.5 mg PO Q6H PRN (Reason: anxiety) 7 Days Qty: 28 0RF morphine 15 mg Tablet Extended Release 15 mg PO Q12H 7 Days Qty: 14 0RF Rx Instructions: Partial Fill upon patient request. sulfamethoxazole-trimethoprim 800-160 mg tablet 1 tab PO BID hydromorphone 4 mg tablet 6 mg PO Q4-6H PRN (Reason: pain) Discharge Orders: Discharge Order (Routine); Ordered 11/23/23 Ordered By: Cinthia Long Diet: Advance to usual diet Activity on Discharge: Use cane or walker Stand Alone Forms: Patient Portal Discharge page Activity Restrictions/Additional Instructions: Physical Therapy for total hip arthroplasty: no precautions, gait training, ROM, strength Limit stair climbing No showering, no tub bath-keep dressing clean, dry and intact No driving Continue Eliquis for anticoagulant Continue abx Follow up with [facility] Orthopedics in 2 weeks Care Plan Goals: restore fxn to left hip Health Concerns: Left hip cellulitis and seroma Plan of Treatment: Physical Therapy for total hip arthroplasty: no precautions, gait training, ROM, strength Limit stair climbing No showering, no tub bath-keep dressing clean, dry and intact No driving Continue Eliquis for anticoagulant Continue abx Follow up with [facility] Orthopedics in 2 weeks Assessment: stable for discharge
--- NOTE | 2023-11-23 15:00 | W.MHC.F2F ---
Service Date Service Date: 11/23/23 Encounter Date of encounter: 11/23/23 Reasons for Services Signs and symptoms assessed: s/p LTHA 11/02/23 and then Irrigation and debridement on 11/19/23. Pt. is considered homebound due to recent surgery. Unable to drive, poor balance, poor gait mechanics. Reason for group home: wound care, central line care, postoperative assessment and/or care and other (PICC line care ) Reason for physical therapy: home safety and mobility, therapeutic exercises, restore joint function, gait/transfer training, assess need for DME and ADL training Reason for occupational therapy: home safety and mobility, therapeutic exercises, restore joint function, gait/transfer training, assess need for DME and ADL training Homebound: Leaving the home is medically contraindicated at this time without the asist of a device and/or another person due th the listed conditions above and below. Reason homebound: unsteady gait / fall risk, leg weakness, pain with ambulation, pain with transfers, poor balance / fall risk and unable to drive Certification: Based on the above findings, I certify that this patient is confined to the home and needs intermittent group home care, physical therapy and/or speech therapy, or continues to need occupational therapy. The patient is under my care, and I have initiated the establishment of the plan of care. The patient will be followed by a physician who will periodically review the plan of care. Time Spent With Patient Time: Total time managing care of this patient today ____ minutes.
[2023-11-23 15:11] VITALS: BP 120/60; PULSE 71; RESP 18; TEMP 37.1; O2SAT 100
[2023-11-23] MEDS: cefTRIAXone sodium 2 GM in 0.9 % Sodium Chloride 50 ML IV (15:28)
--- NOTE | 2023-11-23 16:47 | PC.NURSE ---
FRENCH drain removed by . Dressing to hip CDI. Denies pain at this time. PICC for home IV antibiotics. Pt discharged home. Discharge instructions given to pt by Dalia PARKINSON
== END 2023-11-23 16:47 | disposition home health service (06) | DRG 711 ==
LOC: HO.ED 11-16 02:01 → HO.EDOVER 11-16 03:15 → HO.S3 11-16 07:31
PROVIDERS: Internal Medicine; Physician Assistant; Admitting Provider Internal Medicine; Emergency Provider Emergency Medicine Emergency Medical Services; PCP Physician Assistant Medical; Visit Provider Orthopaedic Surgery
PROC: 02HV33Z Insertion of Infusion Device into Superior Vena Cava, Percutaneous Approach (ICD-10-PCS; principal; 2023-11-18 09:30)
PROC: 0JDM0ZZ Extraction of Left Upper Leg Subcutaneous Tissue and Fascia, Open Approach (ICD-10-PCS; principal; 2023-11-19 13:30)
DX: T81.41XA Infection following a procedure, superficial incisional surgical site, initial encounter (principal); I82.452 Acute embolism and thrombosis of left peroneal vein; L03.116 Cellulitis of left lower limb; L76.34 Postprocedural seroma of skin and subcutaneous tissue following other procedure; Y83.8 Other surgical procedures as the cause of abnormal reaction of the patient, or of later complication, without mention of misadventure at the time of the procedure; D64.9 Anemia, unspecified; I25.10 Atherosclerotic heart disease of native coronary artery without angina pectoris; K59.00 Constipation, unspecified; Z79.01 Long term (current) use of anticoagulants; Z79.899 Other long term (current) drug therapy
CPT/HCPCS: 36415; 36573; 73701; 80053; 80202; 82565; 83605; 83735; 83880; 84484; 85014; 85018; 85025; 85027; 85610; 85652; 85730; 86140; 86141; 86850; 86900; 86901; 87040; 87070; 87147; 87205; 93005; 93971; 97116; 97162; 99285; C1751; J0131; J0692; J0696; J0736; J1170; J1642; J1650; J1885; J2250; J2405; J2704; J3010; J3370; J3371; J7120; Q9967

== ENCOUNTER 2023-11-16 02:58 | Outpatient (BNV) | payer OTHER, SELFPAY | END 2023-11-21 14:33 | PROVIDERS: Admitting Provider Internal Medicine; Emergency Provider Emergency Medicine Emergency Medical Services; PCP Physician Assistant Medical; Visit Provider Internal Medicine | DX: R07.9 Chest pain, unspecified (principal); R94.31 Abnormal electrocardiogram [ECG] [EKG] | CPT/HCPCS: 93010 ==

== ENCOUNTER → 2023-11-16 02:58 | Outpatient (BNV) | payer OTHER, SELFPAY | PROVIDERS: Admitting Provider Internal Medicine; Emergency Provider Emergency Medicine Emergency Medical Services; PCP Physician Assistant Medical; Visit Provider Internal Medicine | DX: L03.116 Cellulitis of left lower limb (principal); I82.452 Acute embolism and thrombosis of left peroneal vein; D64.9 Anemia, unspecified | CPT/HCPCS: 99222; 99232; 99499 ==

== ENCOUNTER → 2023-11-16 02:58 | Outpatient (BNV) | payer OTHER, SELFPAY | PROVIDERS: Admitting Provider Internal Medicine; Emergency Provider Emergency Medicine Emergency Medical Services; PCP Physician Assistant Medical; Visit Provider Internal Medicine | DX: L03.116 Cellulitis of left lower limb (principal); I82.452 Acute embolism and thrombosis of left peroneal vein; T79.2XXA Traumatic secondary and recurrent hemorrhage and seroma, initial encounter | CPT/HCPCS: 99222 ==

== ENCOUNTER → 2023-11-16 02:58 | Outpatient (BNV) | payer OTHER, SELFPAY | PROVIDERS: Admitting Provider Internal Medicine; Emergency Provider Emergency Medicine Emergency Medical Services; PCP Physician Assistant Medical; Visit Provider Orthopaedic Surgery | DX: M25.452 Effusion, left hip (principal) | CPT/HCPCS: 27030; 99024; 99499; G0180 ==

== ENCOUNTER 2023-11-24 13:48 | Outpatient (REF) | payer OTHER, SELFPAY ==
[2023-11-24 13:51] LABS: MANUAL DIFF FLAG NO
[2023-11-24 14:24] LABS: Basophils Percent Auto 0.4 % (0-2); Eosinophils Absolute Auto 0.2 X10*3/uL (0.0-0.4); Eosinophils Percent Auto 1.6 % (0-4); Hematocrit 27.5 % (37.0-47.0); Hemoglobin 8.8 g/dl (12.0-16.0); Imm Gran Abs Auto 0.06 X10*3/uL (0.00-0.03); Imm Gran Pct Auto 0.6 % (0.0-0.4); Lymphocytes Absolute Auto 2.2 X10*3/uL (1.2-4.9); Lymphocytes Percent Auto 22.5 % (20-40); Mean Corpuscular Hemoglobin 25.8 pg (27.0-33.0); Mean Corpuscular Volume 80.6 fL (80.0-98.0); Mean Platelet Volume 9.9 fL (9.4-12.3); Monocytes Absolute Auto 0.5 X10*3/uL (0.1-1.2); Monocytes Percent Auto 5.4 % (2-11); Neutrophils Absolute Auto 6.9 x10*3/uL (2.0-8.3); Neutrophils Percent Auto 69.5 % (45-73); Platelet Count 499 X10*3/uL (160-400); Red Blood Count 3.41 X10*6/uL (4.20-5.50); Red Cell Distribution Width 14.6 % (11.0-16.0)
[2023-11-24 14:57] LABS: Anion Gap 13 (12-20); Blood Urea Nitrogen 14 mg/dL (9-16); Calcium 8.8 mg/dL (8.4-10.2); Carbon Dioxide 26 mmol/L (22-29); Chloride 106 mmol/L (96-108); Estimated Glomerular Filt Rate > 60; Glucose Random 90 mg/dL (60-115); Potassium 4.3 mmol/L (3.3-5.1); Sodium 141 mmol/L (135-145)
== END 2023-11-24 13:49 | disposition home or self-care (01) ==
LOC: HO.HVNA 13:48
PROVIDERS: Visit Provider Internal Medicine
DX: Z96.642 Presence of left artificial hip joint (principal); Z79.2 Long term (current) use of antibiotics
CPT/HCPCS: 36415; 80048; 85025

== ENCOUNTER 2023-11-30 17:10 | Outpatient (REF) | payer OTHER, SELFPAY ==
[2023-11-30 17:14] LABS: MANUAL DIFF FLAG NO
[2023-11-30 17:17] LABS: Basophils Percent Auto 0.6 % (0-2); Eosinophils Absolute Auto 0.1 X10*3/uL (0.0-0.4); Eosinophils Percent Auto 1.6 % (0-4); Hematocrit 27.5 % (37.0-47.0); Hemoglobin 8.7 g/dl (12.0-16.0); Imm Gran Abs Auto 0.02 X10*3/uL (0.00-0.03); Imm Gran Pct Auto 0.3 % (0.0-0.4); Lymphocytes Absolute Auto 1.7 X10*3/uL (1.2-4.9); Mean Corpuscular HGB Conc 31.6 g/dl (31.0-35.0); Mean Corpuscular Hemoglobin 25.4 pg (27.0-33.0); Mean Corpuscular Volume 80.2 fL (80.0-98.0); Mean Platelet Volume 10.4 fL (9.4-12.3); Monocytes Absolute Auto 0.5 X10*3/uL (0.1-1.2); Monocytes Percent Auto 7.8 % (2-11); Neutrophils Absolute Auto 4.5 x10*3/uL (2.0-8.3); Neutrophils Percent Auto 64.7 % (45-73); Platelet Count 395 X10*3/uL (160-400); Red Blood Count 3.43 X10*6/uL (4.20-5.50); Red Cell Distribution Width 14.6 % (11.0-16.0); White Blood Count 6.9 X10*3/uL (4.8-10.8)
[2023-11-30 18:13] LABS: Anion Gap 11 (12-20); Blood Urea Nitrogen 12 mg/dL (9-16); Calcium 8.9 mg/dL (8.4-10.2); Carbon Dioxide 26 mmol/L (22-29); Chloride 106 mmol/L (96-108); Estimated Glomerular Filt Rate > 60; Glucose Random 97 mg/dL (60-115); Sodium 139 mmol/L (135-145)
== END 2023-11-30 17:11 | disposition home or self-care (01) ==
LOC: HO.HVNA 17:10
PROVIDERS: Visit Provider Internal Medicine
DX: L03.116 Cellulitis of left lower limb (principal)
CPT/HCPCS: 36415; 80048; 85025

== ENCOUNTER 2023-12-02 09:40 | Outpatient (AMB) | payer OTHER, SELFPAY ==
--- NOTE | 2023-12-02 10:08 | A.OFFVIS_ITS ---
Intake Intake Visit Reasons: OV-Left Hip Surgical Wound Infection-follow up Intake Note: Nilsa presents for follow-up after undergoing washout of her left hip seroma on 11/19/2023. The patient's initial total hip replacement surgery was performed on 11/02/2023. The patient reports mild to moderate discomfort in her left hip. She does take Tylenol and Dilaudid as needed. The patient states that she has been going up and down stairs more frequently over the last few days. She has noticed some sanguinous drainage from the superior aspect of her incision. She continues to take Eliquis for her recent deep vein thrombosis. Allergies Penicillins Allergy (Intermediate, Verified 11/12/23 14:11) Hives tramadol Adverse Reaction (Intermediate, Verified 11/12/23 14:11) Hives [facility] Medical History Osteoarthritis of left hip Osteoarthritis Atherosclerotic cardiovascular disease Surgical History Hx of colonoscopy Family History Father Heart attack Lung cancer History of quadruple bypass Mother Afib H/O heart artery stent S/P ablation of atrial fibrillation Social History Household Members: Family Housing: House Are you a primary hemodialysis patient care specialist to a significant other at home: No Do you presently have visiting nurse or other home services: Yes Alcohol intake: current Alcohol intake frequency: a few times a month Comment: Patient refusing all high fall risk interventions. 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 Leung presents for follow-up after undergoing washout of her superficial seroma on 11/19/2023. The patient will continue taken her IV antibiotics as well as the Eliquis. Some of the patient's sutures were removed today. I will see her back in 1 week's time for repeat clinical examination. I will also check her C-reactive protein and erythrocyte sedimentation rate. She is due to follow-up with the infectious disease service next week. The patient will contact me prior to her follow-up appointment should any questions or concerns arise. Orders: Orders CRP High Sensitivity Today L03.116 - Cellulitis of left lower limb Erythrocyte Sedimentation Rate Today L03.116 - Cellulitis of left lower limb Coding Level of Care Code Global (68219) Diagnoses Cellulitis of left hip L03.116
== END 2023-12-02 10:08 | disposition home or self-care (01) ==
PROVIDERS: PCP Physician Assistant Medical; Visit Provider Orthopaedic Surgery
DX: L03.116 Cellulitis of left lower limb (principal)
CPT/HCPCS: 99024

== ENCOUNTER 2023-12-02 09:40 | Outpatient (REF) | payer OTHER, SELFPAY | END 2023-12-02 09:41 | disposition home or self-care (01) | LOC: HO.HVNA 09:40 | PROVIDERS: PCP Physician Assistant Medical; Visit Provider Orthopaedic Surgery | DX: Z13.89 Encounter for screening for other disorder (principal) ==

== ENCOUNTER 2023-12-03 | Outpatient (REF) | payer OTHER, SELFPAY ==
[2023-12-03 13:26] LABS: Erythrocyte Sedimentation Rate 36 MM/HR (0-20)
[2023-12-04 17:08] LABS: CRP High Sensitivity >10.0 mg/L
== END 2023-12-03 00:01 | disposition home or self-care (01) ==
LOC: HO.HVNA
PROVIDERS: Visit Provider Orthopaedic Surgery
DX: L03.116 Cellulitis of left lower limb (principal)
CPT/HCPCS: 36415; 85652; 86141

== ENCOUNTER 2023-12-07 14:10 | Outpatient (AMB) | payer OTHER, SELFPAY ==
--- NOTE | 2023-12-07 14:11 | A.OFFVIS_ITS ---
Intake Vital Signs 3 12/07/23 14:12 Height 5 ft 5 in Weight 165 lb BMI 27.5 Pulse 65 Pulse Source Pulse Oximeter Temp 97.7 F Temp Source Oral Pulse Oximetry (%) 100 Intake Visit Reasons: Ref.HMC,Cellulitis of the hip Allergies Penicillins Allergy (Intermediate, Verified 12/07/23 14:11) Hives tramadol Adverse Reaction (Intermediate, Verified 12/07/23 14:11) Hives HPI Ref.HMC,Cellulitis of the hip 2 HPI0 Details She has hip seroma after THR on 11/02. She has mild to moderate hip discomfort. She has Group B strep and 42 days Ceftriaxone. [facility] Medical History Osteoarthritis of left hip Osteoarthritis Atherosclerotic cardiovascular disease Surgical History Hx of colonoscopy Family History Father Heart attack Lung cancer History of quadruple bypass Mother Afib H/O heart artery stent S/P ablation of atrial fibrillation Social History Household Members: Family Housing: House Are you a primary care asst to a significant other at home: No Do you presently have visiting nurse or other home services: Yes Alcohol intake: current Alcohol intake frequency: a few times a month Comment: Patient refusing all high fall risk interventions. 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 of Systems Const All systems reviewed & are unremarkable except as noted in HPI and below Physical Exam Vital Signs: Last Vital Signs Temp 97.7 F 12/07/23 14:12 Pulse 65 12/07/23 14:12 Pulse Ox 100 12/07/23 14:12 BMI result Body Mass Index 27.5 Const Other: General: cooperative Orientation/consciousness: patient oriented x3 HEENT Head: Yes normal to inspection Mouth: Normal oral and palatal mucosa present Eyes General: appearance normal, both eyes and all related structures Pupils: Equal, round and reactive pupils present Resp Effort & Inspection: normal respiratory effort Cardio Rate: regular rate Rhythm: regular rhythm GI Palpation (GI): Soft to palpation and nontender General: Yes no CVA tenderness Back/Spine/Pelvis Back: no CVA tenderness Skin General skin exam: no rashes or lesions noted Neuro General: patient oriented x3 Cranial nerves: Yes CN's II-XII intact bilaterally and Yes Equal, round and reactive pupils present Extrem Other: still some redness hip area,no purulence Psych Appearance: grossly normal Assessment & Plan Assessment & Plan (1) Cellulitis of left hip: Comment: Still some erythema wound area Code(s): L03.116 - Cellulitis of left lower limb Plan: Would like to add Rifampin for joint hardware penetration into infection but drug interaction concern with other medication so give po Doxycycline also for month or two. Finish IV Ceftriaxone and pull PICC line on 12/24. Follow Orthopedics See back one month (2) Hip pain, left: Code(s): M25.552 - Pain in left hip Plan: na (3) Seroma, post-traumatic: Code(s): T79.2XXA - Traumatic secondary and recurrent hemorrhage and seroma, initial encounter Plan: na (4) History of total left hip replacement: Onset Date: ~11/02/23 Comment: Dr. Desouza Code(s): Z96.642 - Presence of left artificial hip joint Plan: na Medications: New 2 doxycycline hyclate 100 mg PO BID 60 caps 1RF 30 days Coding Level of Care Code Est Pt Level 3 (21826) Diagnoses Cellulitis of left hip L03.116 Hip pain, left M25.552 Seroma, post-traumatic T79.2XXA History of total left hip replacement Z96.642
[2023-12-07 14:12] VITALS: PULSE 65; TEMP 36.5; O2SAT 100; BMI 27.5
== END 2023-12-07 15:01 | disposition home or self-care (01) ==
PROVIDERS: PCP Physician Assistant Medical; Visit Provider Internal Medicine
DX: L03.116 Cellulitis of left lower limb (principal); M25.552 Pain in left hip; T79.2XXA Traumatic secondary and recurrent hemorrhage and seroma, initial encounter; Z96.642 Presence of left artificial hip joint
CPT/HCPCS: 99213

== ENCOUNTER → 2023-12-07 14:10 | Outpatient (BNVA) | payer OTHER, SELFPAY | PROVIDERS: PCP Physician Assistant Medical; Visit Provider Internal Medicine ==

== ENCOUNTER 2023-12-07 14:13 | Outpatient (REF) | payer OTHER, SELFPAY ==
[2023-12-07 14:17] LABS: MANUAL DIFF FLAG NO
[2023-12-07 14:23] LABS: Basophils Percent Auto 0.7 % (0-2); Eosinophils Absolute Auto 0.1 X10*3/uL (0.0-0.4); Hematocrit 32.6 % (37.0-47.0); Hemoglobin 10.4 g/dl (12.0-16.0); Imm Gran Abs Auto 0.02 X10*3/uL (0.00-0.03); Imm Gran Pct Auto 0.4 % (0.0-0.4); Lymphocytes Absolute Auto 1.8 X10*3/uL (1.2-4.9); Mean Corpuscular HGB Conc 31.9 g/dl (31.0-35.0); Mean Corpuscular Hemoglobin 25.2 pg (27.0-33.0); Mean Corpuscular Volume 79.1 fL (80.0-98.0); Mean Platelet Volume 11.4 fL (9.4-12.3); Monocytes Absolute Auto 0.4 X10*3/uL (0.1-1.2); Monocytes Percent Auto 6.5 % (2-11); Neutrophils Absolute Auto 3.2 x10*3/uL (2.0-8.3); Neutrophils Percent Auto 57.4 % (45-73); Platelet Count 383 X10*3/uL (160-400); Red Blood Count 4.12 X10*6/uL (4.20-5.50); Red Cell Distribution Width 14.6 % (11.0-16.0); White Blood Count 5.5 X10*3/uL (4.8-10.8)
== END 2023-12-07 14:14 | disposition home or self-care (01) ==
LOC: HO.HVNA 14:13
PROVIDERS: Visit Provider Internal Medicine
DX: Z47.1 Aftercare following joint replacement surgery (principal)
CPT/HCPCS: 36415; 85025

== ENCOUNTER 2023-12-09 11:31 | Outpatient (AMB) | payer OTHER, SELFPAY ==
[2023-12-09 11:46] VITALS: BMI 27.5
--- NOTE | 2023-12-09 11:46 | A.OFFVIS_ITS ---
Intake Vital Signs 12/09/23 11:46 Height 5 ft 5 in Weight 165 lb BMI 27.5 Intake Visit Reasons: OV - left hip pain Intake Note: Nilsa presents for follow-up after undergoing washout of her left hip seroma on 11/19/2023. The patient's initial total hip replacement surgery was performed on 11/02/2023. The patient reports continued mild to moderate discomfort along the anterior and lateral aspects of her hip. She states that every day or so she does notice some serosanguineous drainage along the superior aspect of her incision. She has no longer walking with a walker. She does walk with a cane. She continues to take Eliquis for her recent deep vein thrombosis. She was seen by Dr. King from Infectious diseases and placed on doxycycline in addition to her IV ceftriaxone. The patient questions whether or not she could have a ?deep infection? which will not resolve with continued antibiotic treatment. Allergies Penicillins Allergy (Intermediate, Verified 12/07/23 14:11) Hives tramadol Adverse Reaction (Intermediate, Verified 12/07/23 14:11) Hives [facility] Medical History Osteoarthritis of left hip Osteoarthritis Atherosclerotic cardiovascular disease Surgical History Hx of colonoscopy Family History Father Heart attack Lung cancer History of quadruple bypass Mother Afib H/O heart artery stent S/P ablation of atrial fibrillation Social History Household Members: Family Housing: House Are you a primary college and career counselor to a significant other at home: No Do you presently have visiting nurse or other home services: Yes Alcohol intake: current Alcohol intake frequency: a few times a month Comment: Patient refusing all high fall risk interventions. 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 Leung presents for follow-up after undergoing washout of her left hip seroma on 11/19/2023. The remainder of the patient's sutures were removed today. I had a lengthy discussion with the patient regarding the possibility of a deep infection which might require 1 or 2 stage revision surgery at some point in the future. I did recommend that the patient have an evaluation by Dr. Jeremi Troncoso from the orthopedic surgery department at [facility] in [place], [place]. I will contact Dr. Troncoso's office. I will also re- evaluate the patient in 1 week's time. She will contact me prior to that time s hould her symptoms worsen in any way. Coding Level of Care Code Global (51558) Diagnoses Cellulitis of left hip L03.116
== END 2023-12-09 12:18 | disposition home or self-care (01) ==
PROVIDERS: PCP Physician Assistant Medical; Visit Provider Orthopaedic Surgery
DX: L03.116 Cellulitis of left lower limb (principal)
CPT/HCPCS: 99024

== ENCOUNTER → 2023-12-09 11:31 | Outpatient (BNVA) | payer OTHER, SELFPAY | PROVIDERS: PCP Physician Assistant Medical; Visit Provider Orthopaedic Surgery ==

== ENCOUNTER 2023-12-10 11:30 | Outpatient (REF) | payer OTHER, SELFPAY ==
[2023-12-10 12:32] LABS: Anion Gap 16 (12-20); Blood Urea Nitrogen 14 mg/dL (9-16); Calcium 9.2 mg/dL (8.4-10.2); Carbon Dioxide 24 mmol/L (22-29); Chloride 104 mmol/L (96-108); Estimated Glomerular Filt Rate > 60; Glucose Random 88 mg/dL (60-115); Sodium 140 mmol/L (135-145)
== END 2023-12-10 11:31 | disposition home or self-care (01) ==
LOC: HO.HVNA 11:30
PROVIDERS: Visit Provider Internal Medicine
DX: Z47.1 Aftercare following joint replacement surgery (principal)
CPT/HCPCS: 36415; 80048

== ENCOUNTER 2023-12-14 14:31 | Outpatient (REF) | payer OTHER, SELFPAY ==
[2023-12-14 14:34] LABS: MANUAL DIFF FLAG NO
[2023-12-14 14:38] LABS: Basophils Percent Auto 0.5 % (0-2); Eosinophils Absolute Auto 0.1 X10*3/uL (0.0-0.4); Eosinophils Percent Auto 1.6 % (0-4); Hematocrit 32.6 % (37.0-47.0); Hemoglobin 10.5 g/dl (12.0-16.0); Imm Gran Abs Auto 0.02 X10*3/uL (0.00-0.03); Imm Gran Pct Auto 0.2 % (0.0-0.4); Lymphocytes Absolute Auto 1.7 X10*3/uL (1.2-4.9); Lymphocytes Percent Auto 21.2 % (20-40); Mean Corpuscular HGB Conc 32.2 g/dl (31.0-35.0); Mean Corpuscular Volume 77.6 fL (80.0-98.0); Mean Platelet Volume 10.9 fL (9.4-12.3); Monocytes Absolute Auto 0.6 X10*3/uL (0.1-1.2); Monocytes Percent Auto 7.1 % (2-11); Neutrophils Absolute Auto 5.7 x10*3/uL (2.0-8.3); Neutrophils Percent Auto 69.4 % (45-73); Platelet Count 333 X10*3/uL (160-400); Red Cell Distribution Width 14.3 % (11.0-16.0); White Blood Count 8.2 X10*3/uL (4.8-10.8)
[2023-12-14 15:29] LABS: Anion Gap 14 (12-20); Blood Urea Nitrogen 11 mg/dL (9-16); Calcium 9.2 mg/dL (8.4-10.2); Carbon Dioxide 25 mmol/L (22-29); Chloride 103 mmol/L (96-108); Estimated Glomerular Filt Rate > 60; Glucose Random 94 mg/dL (60-115); Potassium 4.2 mmol/L (3.3-5.1); Sodium 138 mmol/L (135-145)
== END 2023-12-14 14:32 | disposition home or self-care (01) ==
LOC: HO.HVNA 14:31
PROVIDERS: Visit Provider Internal Medicine
DX: Z47.1 Aftercare following joint replacement surgery (principal)
CPT/HCPCS: 36415; 80048; 85025

== ENCOUNTER 2023-12-16 11:27 | Outpatient (AMB) | payer OTHER, SELFPAY ==
--- NOTE | 2023-12-16 12:03 | A.OFFVIS_ITS ---
Intake Intake Visit Reasons: OV - left hip pain-follow up Intake Note: Nilsa presents for follow-up after undergoing washout of her left hip seroma on 11/19/2023. The patient's initial total hip replacement surgery was performed on 11/02/2023. The patient reports continued mild intermittent discomfort in her left hip. She does take Tylenol as needed. She continues to take Eliquis for her recent deep vein thrombosis. She does walk with a cane when she is out of her home. The patient continues with her antibiotics as per Dr. King. The patient states that the drainage along the superior aspect of her incision has significantly subsided over the last few days. At her appointment with me last week we did discuss the possibility that the patient's continued wound drainage was due to a deep infection and not a superficial seroma. I did recommend at that time that the patient get an opinion from Dr. Jeremi Troncoso from [facility] in [place], [place] because he specializes in complex joint replacement problems. The patient is scheduled to see Dr. Troncoso next week. Allergies Penicillins Allergy (Intermediate, Verified 12/07/23 14:11) Hives tramadol Adverse Reaction (Intermediate, Verified 12/07/23 14:11) Hives Medication List - Last Reconciled 12/16/23 by Bear Bell MD acetaminophen 975 mg (3 x 325 mg) PO Q6H PRN 30 days apixaban (Eliquis) 5 mg PO BID 30 days ceftriaxone 2 grams IV Q24H 42 days celecoxib 200 mg PO BID 30 days cyclobenzaprine 5 mg PO TID PRN doxycycline hyclate 100 mg PO BID 30 days fiber 1 tab PO DAILY hydromorphone 4 mg PO Q4H PRN 7 days lorazepam 0.5 mg PO Q6H PRN 7 days multivitamin 1 tab PO DAILY nitroglycerin 0.4 mg sublingual Q5M PRN polyethylene glycol 3350 17 grams PO DAILY 30 days [Raised toliet seat As directed] valacyclovir 1,000 mg PO DAILY PRN walker Folding front wheeled walker [facility] Medical History Osteoarthritis of left hip Osteoarthritis Atherosclerotic cardiovascular disease Surgical History Hx of colonoscopy Family History Father Heart attack Lung cancer History of quadruple bypass Mother Afib H/O heart artery stent S/P ablation of atrial fibrillation Social History Household Members: Family Housing: House Are you a primary customer care manager to a significant other at home: No Do you presently have visiting nurse or other home services: Yes Alcohol intake: current Alcohol intake frequency: a few times a month Comment: Patient refusing all high fall risk interventions. 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 Leung presents for follow-up after undergoing left primary total hip replacement surgery on 11/02/2023 as well as washout of a postoperative seroma performed on 11/19/2023. Although the patient's symptoms are slowly improving there is still concerned that the patient may have a deep infection and not just a superficial seroma. The patient already has an appointment with Dr. Jeremi Troncoso at [facility] in [place], [place] as per my recommendation next week. Because of Dr. Troncoso's expertise with complex joint replacement problems and the potential need for imaging which is not available here at [facility] such as an MRI with metal artifact reduction sequences I do feel that it is a medical necessity and in the patient's best interest to keep this appointment even though it is out of her insurance companies primary network. There are no orthopedic surgeons here at [facility] who can offer this degree of expertise. The patient will contact me after that appointment. She will continue with her current antibiotic protocol as per the Infectious Disease Service. Feel free to call me at any time should questions regarding her orthopedic management arise. Coding Level of Care Code Global (98680) Diagnoses Cellulitis of left hip L03.116
== END 2023-12-16 12:00 | disposition home or self-care (01) ==
PROVIDERS: PCP Physician Assistant Medical; Visit Provider Orthopaedic Surgery
DX: L03.116 Cellulitis of left lower limb (principal)
CPT/HCPCS: 99024

== ENCOUNTER → 2023-12-16 11:27 | Outpatient (BNVA) | payer OTHER, SELFPAY | PROVIDERS: PCP Physician Assistant Medical; Visit Provider Orthopaedic Surgery ==

== ENCOUNTER 2023-12-21 14:44 | Outpatient (AMB) | payer OTHER, SELFPAY ==
[2023-12-21 14:53] VITALS: PULSE 69; TEMP 36.4; O2SAT 99; BMI 27.8
--- NOTE | 2023-12-21 14:53 | MHC.OFFVIS ---
Intake Vital Signs 12/21/23 14:53 Height 5 ft 5 in Weight 167 lb BMI 27.8 Pulse 69 Pulse Source Pulse Oximeter Temp 97.6 F Temp Source Oral Pulse Oximetry (%) 99 Oxygen Delivery Method Room Air Intake Visit Reasons: follow hip cellulitis Allergies Penicillins Allergy (Intermediate, Verified 12/21/23 14:58) Hives tramadol Adverse Reaction (Intermediate, Verified 12/21/23 14:58) Hives HPI follow hip cellulitis HPI Details I had seen her last week and she has followed up with Orthopedics who sent her to Dr Jeremi Troncoso Orthopedics at [facility] for more evaluation. She notes area drained green fluid and now looks more clear. She has no fever or chills. She is here with her friend Andres today. [facility] Medical History Anemia Cellulitis of left leg Osteoarthritis of left hip Osteoarthritis Atherosclerotic cardiovascular disease Surgical History Hx of colonoscopy Family History Father Heart attack Lung cancer History of quadruple bypass Mother Afib H/O heart artery stent S/P ablation of atrial fibrillation Social History Household Members: Family Housing: House Are you a primary child care specialist to a significant other at home: No Do you presently have visiting nurse or other home services: Yes Alcohol intake: current Alcohol intake frequency: a few times a month Comment: Patient refusing all high fall risk interventions. 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 of Systems Const All systems reviewed & are unremarkable except as noted in HPI and below Physical Exam Vital Signs: Last Vital Signs Temp 97.6 F 12/21/23 14:53 Pulse 69 12/21/23 14:53 Pulse Ox 99 12/21/23 14:53 Oxygen Delivery Method Room Air 12/21/23 14:53 BMI result Body Mass Index 27.8 Const Other: General: cooperative Orientation/consciousness: patient oriented x3 HEENT Head: Yes normal to inspection Mouth: Normal oral and palatal mucosa present Eyes General: appearance normal, both eyes and all related structures Pupils: Equal, round and reactive pupils present Resp Effort & Inspection: normal respiratory effort Cardio Rate: regular rate Rhythm: regular rhythm GI Palpation (GI): Soft to palpation and nontender General: Yes no CVA tenderness Back/Spine/Pelvis Back: no CVA tenderness Skin Other: area looks more clear Neuro General: patient oriented x3 Cranial nerves: Yes CN's II-XII intact bilaterally and Yes Equal, round and reactive pupils present Extrem General: Yes normal to inspection Psych Appearance: grossly normal Assessment & Plan Assessment & Plan (1) Cellulitis of left hip: Comment: Still some erythema wound area Code(s): L03.116 - Cellulitis of left lower limb (2) Hip pain, left: Code(s): M25.552 - Pain in left hip Plan Area appears better Continue PICC line through 12/28 likely (day after seen at [facility]). Continue Doxycycline ,has another two weeks. See after evaluation with Orthopedics. Medications: New fluconazole (Diflucan) 200 mg PO DAILY 1 tab 0RF Coding Level of Care Code Est Pt Level 4 (48156) Diagnoses Cellulitis of left hip L03.116 Hip pain, left M25.552
== END 2023-12-21 15:30 | disposition home or self-care (01) ==
LOC: HO.HID 14:44
PROVIDERS: PCP Physician Assistant Medical; Visit Provider Internal Medicine
DX: L03.116 Cellulitis of left lower limb (principal); M25.552 Pain in left hip
CPT/HCPCS: 99214

== ENCOUNTER → 2023-12-21 14:44 | Outpatient (BNVA) | payer OTHER, SELFPAY | PROVIDERS: PCP Physician Assistant Medical; Visit Provider Internal Medicine ==

== ENCOUNTER 2023-12-24 12:28 | Outpatient (REF) | payer OTHER, SELFPAY ==
[2023-12-24 14:28] LABS: MANUAL DIFF FLAG NO
[2023-12-24 14:35] LABS: Basophils Percent Auto 0.5 % (0-2); Eosinophils Absolute Auto 0.1 X10*3/uL (0.0-0.4); Eosinophils Percent Auto 1.9 % (0-4); Hematocrit 33.7 % (37.0-47.0); Hemoglobin 10.4 g/dl (12.0-16.0); Imm Gran Abs Auto 0.02 X10*3/uL (0.00-0.03); Imm Gran Pct Auto 0.3 % (0.0-0.4); Lymphocytes Absolute Auto 1.9 X10*3/uL (1.2-4.9); Lymphocytes Percent Auto 32.7 % (20-40); Mean Corpuscular HGB Conc 30.9 g/dl (31.0-35.0); Mean Corpuscular Hemoglobin 24.1 pg (27.0-33.0); Mean Corpuscular Volume 78.2 fL (80.0-98.0); Mean Platelet Volume 11.5 fL (9.4-12.3); Monocytes Absolute Auto 0.4 X10*3/uL (0.1-1.2); Monocytes Percent Auto 7.3 % (2-11); Neutrophils Absolute Auto 3.4 x10*3/uL (2.0-8.3); Neutrophils Percent Auto 57.3 % (45-73); Platelet Count 343 X10*3/uL (160-400); Red Blood Count 4.31 X10*6/uL (4.20-5.50); Red Cell Distribution Width 14.1 % (11.0-16.0); White Blood Count 5.9 X10*3/uL (4.8-10.8)
[2023-12-24 14:50] LABS: Anion Gap 12 (12-20); Blood Urea Nitrogen 12 mg/dL (9-16); Calcium 9.2 mg/dL (8.4-10.2); Carbon Dioxide 24 mmol/L (22-29); Chloride 104 mmol/L (96-108); Estimated Glomerular Filt Rate > 60; Glucose Random 109 mg/dL (60-115); Potassium 4.2 mmol/L (3.3-5.1); Sodium 136 mmol/L (135-145)
== END 2023-12-24 12:29 | disposition home or self-care (01) ==
LOC: HO.WFDLNP 12:28
PROVIDERS: Visit Provider Internal Medicine
DX: Z47.1 Aftercare following joint replacement surgery (principal)
CPT/HCPCS: 80048; 85025

== ENCOUNTER → 2023-12-30 15:05 | Outpatient (BNVA) | payer OTHER, SELFPAY | PROVIDERS: PCP Physician Assistant Medical; Visit Provider Internal Medicine | DX: L03.116 Cellulitis of left lower limb (principal) ==

== ENCOUNTER 2024-01-06 13:41 | Outpatient (REF) | payer OTHER, SELFPAY | END 2024-01-06 13:42 | disposition home or self-care (01) | LOC: HO.MAMMO 13:41 | PROVIDERS: PCP Physician Assistant Medical; Visit Provider Physician Assistant Medical | DX: Z12.31 Encounter for screening mammogram for malignant neoplasm of breast (principal) | CPT/HCPCS: 77063; 77067 ==

== ENCOUNTER → 2024-01-06 13:45 | Outpatient (BNV) | payer OTHER, SELFPAY | PROVIDERS: PCP Physician Assistant Medical; Visit Provider Radiology Diagnostic Radiology | DX: Z12.31 Encounter for screening mammogram for malignant neoplasm of breast (principal) | CPT/HCPCS: 77063; 77067 ==

== ENCOUNTER 2024-01-11 12:27 | Outpatient (REF) | payer OTHER, SELFPAY ==
[2024-01-11 12:45] LABS: MANUAL DIFF FLAG NO
[2024-01-11 13:09] LABS: Basophils Percent Auto 0.5 % (0-2); Eosinophils Absolute Auto 0.1 X10*3/uL (0.0-0.4); Eosinophils Percent Auto 1.8 % (0-4); Hematocrit 38.1 % (37.0-47.0); Hemoglobin 11.8 g/dl (12.0-16.0); Imm Gran Abs Auto 0.02 X10*3/uL (0.00-0.03); Imm Gran Pct Auto 0.3 % (0.0-0.4); Lymphocytes Absolute Auto 2.5 X10*3/uL (1.2-4.9); Lymphocytes Percent Auto 32.3 % (20-40); Mean Corpuscular Hemoglobin 23.6 pg (27.0-33.0); Mean Platelet Volume 10.1 fL (9.4-12.3); Monocytes Absolute Auto 0.5 X10*3/uL (0.1-1.2); Monocytes Percent Auto 6.8 % (2-11); Neutrophils Absolute Auto 4.5 x10*3/uL (2.0-8.3); Neutrophils Percent Auto 58.3 % (45-73); Platelet Count 328 X10*3/uL (160-400); Red Blood Count 5.01 X10*6/uL (4.20-5.50); Red Cell Distribution Width 14.2 % (11.0-16.0); White Blood Count 7.8 X10*3/uL (4.8-10.8)
[2024-01-11 13:56] LABS: Erythrocyte Sedimentation Rate 11 MM/HR (0-20)
[2024-01-11 14:10] LABS: C Reactive Protein 0.67 mg/dL (< or = 0.50)
== END 2024-01-11 12:28 | disposition home or self-care (01) ==
LOC: HO.LAB 12:27
PROVIDERS: PCP Physician Assistant Medical; Visit Provider Orthopaedic Surgery
DX: T84.59XA Infection and inflammatory reaction due to other internal joint prosthesis, initial encounter (principal); Z96.649 Presence of unspecified artificial hip joint
CPT/HCPCS: 36415; 85025; 85652; 86140

== ENCOUNTER 2024-01-13 16:20 | Outpatient (REF) | payer OTHER, SELFPAY ==
--- NOTE | ~2024-01-13 | XR_ITS ---
EXAMINATION: XR HIP, LEFT CLINICAL INFORMATION: Left hip replacement, pain. COMPARISON: CT left femur 11/16/2023. TECHNIQUE: Two views of the left hip. FINDINGS: Total left hip arthroplasty with cannulated superior acetabular screw and proximal femoral cerclage wire. No evidence of hardware failure or complication. No acute fracture or subluxation. Mild degenerative osteoarthritis of the right hip. Symmetric SI joints. Pubic symphysis and pelvic rim are maintained. A few pelvic phleboliths are seen. XR/XR hip LT w PEL1V IMPRESSION: 1. Total left hip arthroplasty without evidence of hardware failure or complication. 2. No acute fracture or subluxation.
== END 2024-01-13 16:21 | disposition home or self-care (01) ==
LOC: HO.LAB 16:20
PROVIDERS: PCP Physician Assistant Medical; Visit Provider Orthopaedic Surgery
DX: T84.59XD Infection and inflammatory reaction due to other internal joint prosthesis, subsequent encounter (principal); Z96.642 Presence of left artificial hip joint
CPT/HCPCS: 73502

== ENCOUNTER → 2024-02-02 11:03 | Outpatient (BNV) | payer OTHER, SELFPAY | PROVIDERS: PCP Physician Assistant Medical; Referring Provider Physician Assistant Medical; Visit Provider Internal Medicine | DX: I82.452 Acute embolism and thrombosis of left peroneal vein (principal) | CPT/HCPCS: 99204 ==

== ENCOUNTER 2024-02-02 11:54 | Outpatient (REF) | payer OTHER, SELFPAY ==
--- NOTE | ~2024-02-02 | US_ITS ---
EXAMINATION: US VENOUS ULTRASOUND WITH DOPPLER LOWER EXTREMITY, LEFT CLINICAL INFORMATION: Follow-up DVT on blood thinners COMPARISON: Left lower extremity venous ultrasound 11/16/2023 TECHNIQUE: Ultrasound of the deep veins is performed from the hip to the calf with compression sonography and color and pulse Doppler assessment. Spectral analysis with color-flow imaging is performed. FINDINGS: There the peroneal thrombus seen previously is no longer seen. The study is now unremarkable with normal venous compression, respiratory variation and augmented flow. The visualized common femoral vein, superficial femoral vein, profunda femoral vein, popliteal vein, and the trifurcation region shows no evidence of deep venous thrombosis. There is no significant popliteal fossa cyst. US/US venous duplex LE LT IMPRESSION: Resolved left peroneal thrombus. No DVT demonstrated in the left lower extremity on the current exam.
== END 2024-02-02 11:55 | disposition home or self-care (01) ==
LOC: HO.US 11:54
PROVIDERS: PCP Physician Assistant Medical; Visit Provider Internal Medicine
DX: Z86.72 Personal history of thrombophlebitis (principal)
CPT/HCPCS: 93971

== ENCOUNTER 2024-02-20 09:39 | Outpatient (REF) | payer OTHER, SELFPAY ==
[2024-02-20 09:57] LABS: MANUAL DIFF FLAG NO
[2024-02-20 10:53] LABS: Basophils Percent Auto 0.7 % (0-2); Eosinophils Absolute Auto 0.2 X10*3/uL (0.0-0.4); Hematocrit 39.5 % (37.0-47.0); Hemoglobin 12.4 g/dl (12.0-16.0); Imm Gran Abs Auto 0.01 X10*3/uL (0.00-0.03); Imm Gran Pct Auto 0.2 % (0.0-0.4); Lymphocytes Absolute Auto 2.5 X10*3/uL (1.2-4.9); Lymphocytes Percent Auto 45.2 % (20-40); Mean Corpuscular HGB Conc 31.4 g/dl (31.0-35.0); Mean Corpuscular Hemoglobin 22.8 pg (27.0-33.0); Mean Corpuscular Volume 72.7 fL (80.0-98.0); Mean Platelet Volume 10.6 fL (9.4-12.3); Monocytes Absolute Auto 0.4 X10*3/uL (0.1-1.2); Monocytes Percent Auto 7.9 % (2-11); Neutrophils Absolute Auto 2.3 x10*3/uL (2.0-8.3); Platelet Count 288 X10*3/uL (160-400); Red Blood Count 5.43 X10*6/uL (4.20-5.50); Red Cell Distribution Width 15.9 % (11.0-16.0); White Blood Count 5.4 X10*3/uL (4.8-10.8)
[2024-02-20 11:33] LABS: C Reactive Protein 1.54 mg/dL (< or = 0.50)
[2024-02-20 11:42] LABS: Erythrocyte Sedimentation Rate 10 MM/HR (0-20)
== END 2024-02-20 09:40 | disposition home or self-care (01) ==
LOC: HO.LAB 09:39
PROVIDERS: PCP Physician Assistant Medical; Visit Provider Orthopaedic Surgery
DX: T84.59XA Infection and inflammatory reaction due to other internal joint prosthesis, initial encounter (principal); Z96.649 Presence of unspecified artificial hip joint
CPT/HCPCS: 36415; 85025; 85652; 86140

== ENCOUNTER 2024-03-01 19:01 | Outpatient (REF) | payer OTHER, SELFPAY | END 2024-03-01 19:02 | disposition home or self-care (01) | LOC: HO.XRAY 19:01 | PROVIDERS: PCP Physician Assistant Medical; Visit Provider Orthopaedic Surgery | DX: Z13.89 Encounter for screening for other disorder (principal) ==

== ENCOUNTER 2024-03-02 13:26 | Outpatient (REF) | payer OTHER, SELFPAY ==
--- NOTE | ~2024-03-02 | FL_ITS ---
FLUOROSCOPIC LEFT HIP ASPIRATION Indications: Left hip PJI. Orthopedic surgery requests aspiration of the left hip joint. Procedure: Risks and benefits and possible complications were discussed with the patient and the consent form was signed. The patient was placed hip on the fluoroscopy table. The left hip was prepped and draped in normal sterile fashion. 1% buffered lidocaine was used for anesthesia. A 22-gauge spinal needle was used to access the left hip joint. 3 mL of ramirez fluid was aspirated and sent for cell count and culture. Intra-articular position of the needle within the hip joint was verified using 3 cc of Omnipaque 300. The needle was then removed and a Band-Aid was applied.. The patient tolerated the procedure well. There were no immediate complications. FL/FL guided asp or inj major jt Impression: Fluoroscopic left hip aspiration yielded 3 mL of ramirez fluid. Fluid was sent for requested analysis. The procedure was performed by Melchor Busby PA-C, and directly supervised by Dr. Carpenter.
[2024-03-02 14:27] LABS: Source Synovial Fluid Left hip
[2024-03-02 14:34] LABS: MN% 76.9 %; PMN% 23.1 %; RBC Synovial Fluid 0.129 X10*6/uL; WBC Synovial Fluid 2.492 X10*3/uL
[2024-03-02 15:34] LABS: BF Shift QC OK YES; Eosinophils Synovial Fluid 1 %; Lymphocytes Synovial Fluid 24 %; Man Diluent Bkgrd OK YES; Monocytes Synovial Fluid 20 %; Neutrophils Synovial Fluid 55 %; Other Cells Synovial Fluid 1
== END 2024-03-02 13:27 | disposition home or self-care (01) ==
LOC: HO.XRAY 13:26
PROVIDERS: Physician Assistant Surgical; PCP Physician Assistant Medical; Visit Provider Orthopaedic Surgery
DX: M25.552 Pain in left hip (principal)
CPT/HCPCS: 20610; 77002; 87070; 87073; 87205; 89051; 89060

== ENCOUNTER → 2024-03-02 13:29 | Outpatient (BNV) | payer OTHER, SELFPAY | PROVIDERS: PCP Physician Assistant Medical; Visit Provider Physician Assistant Surgical | DX: T84.52XA Infection and inflammatory reaction due to internal left hip prosthesis, initial encounter (principal) | CPT/HCPCS: 20610; 77002 ==

== ENCOUNTER 2024-03-03 07:16 | Outpatient (REF) | payer OTHER, SELFPAY ==
--- NOTE | ~2024-03-03 | XR_ITS ---
EXAMINATION: XR HIP, LEFT CLINICAL INFORMATION: Pain in the left hip COMPARISON: X-rays of the left hip and pelvis December 2023 TECHNIQUE: AP low pelvis including left hip and lateral view of the left hip FINDINGS: Left hip: Left total hip arthroplasty with components in usual in unchanged position. Cerclage wire along the subtrochanteric portion of the femur unchanged. Surrounding soft tissues unremarkable. Pelvis: Left hip as above. Remaining visualized bone and joints unremarkable. XR/XR hip LT min 2V IMPRESSION: Left total hip arthroplasty without change or complication by x-ray. Remaining visualized pelvis unremarkable
== END 2024-03-03 07:17 | disposition home or self-care (01) ==
LOC: HO.HOSX 07:16
PROVIDERS: Visit Provider Orthopaedic Surgery
DX: M25.552 Pain in left hip (principal)
CPT/HCPCS: 73502

== ENCOUNTER 2024-03-03 10:46 | Outpatient (AMB) | payer OTHER, SELFPAY ==
--- NOTE | 2024-03-03 10:49 | A.OFFVIS_ITS ---
Intake Visit Reasons: OV - follow up left hip, discuss returning to work Intake Note: Nilsa is a 58 year old female who presents to the office today for a follow up left hip. Pt states she is still having hip and groin pain. She states she is still having trouble sleeping. She has been doing PT here at [facility] and is also being followed by Dr. Troncoso. The patient did have her left hip aspirated yesterday here at [facility]. She has been off of her antibiotics for the last few weeks. She did recently me with the infectious disease doctor as well as Dr. Troncoso at [facility]. She does take Tylenol PM at night to help her sleep. She questions whether or not her left hip pain might be due to impingement. The patient continues to walk with a cane. Allergies Penicillins Allergy (Intermediate, Verified 03/03/24 10:49) Hives tramadol Adverse Reaction (Intermediate, Verified 03/03/24 10:49) Hives Medication List - Last Reconciled 03/03/24 by Bear Bell MD acetaminophen 975 mg (3 x 325 mg) PO Q6H PRN 30 days cyclobenzaprine 5 mg PO TID PRN fiber 1 tab PO DAILY fluconazole (Diflucan) 200 mg PO DAILY fluconazole (Diflucan) 200 mg PO DAILY lorazepam 0.5 mg PO Q6H PRN 7 days multivitamin 1 tab PO DAILY nitroglycerin 0.4 mg sublingual Q5M PRN polyethylene glycol 3350 17 grams PO DAILY 30 days [Raised toliet seat As directed] valacyclovir 1,000 mg PO DAILY PRN walker Folding front wheeled walker [facility] Medical History Anemia Cellulitis of left leg Osteoarthritis of left hip Osteoarthritis Atherosclerotic cardiovascular disease Surgical History Hx of colonoscopy Family History Father Heart attack Lung cancer History of quadruple bypass Mother Afib H/O heart artery stent S/P ablation of atrial fibrillation Social History (Updated 02/02/24 @ 11:16 by Bjorn Goodman) Household Members: Family Housing: House Are you a primary personal care aide to a significant other at home: No Do you presently have visiting nurse or other home services: Yes Alcohol intake: current Alcohol intake frequency: a few times a month Comment: Patient refusing all high fall risk interventions. 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 Leung will continue with her formal physical therapy for now. I do feel that the therapy is beneficial as long as she avoids exercises that increase her pain significantly. She will remain off of the oral antibiotics as per Dr. Troncoso and the infectious disease physician at [facility]. She will continue using a cane when she is ambulating as needed. I discussed with the patient the fact that because of the good positioning of her acetabular component I do not feel that impingement syndrome is causing her symptoms. Her residual symptoms are most likely due to continued inflammation and healing. The patient will follow-up with Dr. Troncoso as scheduled. She will contact me prior to her follow-up appointment with me in 2 months should her symptoms worsen in any way. Orders: Orders XR hip LT min 2V Today M25.552 - Pain in left hip Coding Level of Care Code Est Pt Level 2 (59065) Diagnoses Hip pain, left M25.552
== END 2024-03-03 11:25 | disposition home or self-care (01) ==
PROVIDERS: PCP Physician Assistant Medical; Visit Provider Orthopaedic Surgery
DX: M25.552 Pain in left hip (principal)
CPT/HCPCS: 99213

== ENCOUNTER 2024-04-25 09:00 | Outpatient (RCR) | payer OTHER, SELFPAY ==
--- NOTE | 2024-02-04 16:54 | MHC.PT.EP ---
[facility] [place] Office [place] Office [place] Office [address] Sangita Reyes [address] [phone] F: [phone] F: [phone] F: [phone] F: [phone] Physical Therapy Plan of Care Date of Evaluation: 01/22/24 Date of Surgery: Diagnosis: Other symptoms and signs involving musculoskeletal system. Sp instructions: eval and treat B hip ROM, gentle strengthening, gait training. Assessment: Pt is a 58 y/o female who is referred to PT for eval and treat of Other symptoms and signs involving musculoskeletal system with Sp instructions: eval and treat B hip ROM, gentle strengthening, gait training for patient who underwent a L SADI on Nov 02 performed at [facility] with complications and I and D performed on Oct and her current condition is resulting in decreased tolerance or ability walking, standing for duration, sitting for duration, rolling in bed and disturbed sleep, performing LE dressing and hygiene, negotiating stairs and curbs, as well as performing squatting activities and heavy HH chores secondary to decreased B hip strength, decreased L hip ROM, TTO pf L hip flexor area, gait abnormality, L hip swelling, complicated surgical healing process and pain. Pt is deemed an appropriate candidate to receive skilled PT services to address their physical impairments in order to improve their functional ability. Frequency and Duration: The patient will be seen 2 x/ wk x 8 wks. Short Term Goals: initiate home program. Improve baseline pain to < 2-3/10 pain, initial: 4-5/10. Pt will ambulate without AD and symmetrical gait. 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 Improve LEFI by at least 9 points. Improve L hip ABD MMT by at least 1/2 MMT grade. Pt will be able to ascend and descend 1fl of stairs with reciprocal pattern with at most a little bit of difficulty; initial: non reciprocal and challenging. Pt will be able to walk 1 mile with at most a little bit of difficulty. Pt will be able to stand for 1 hour with managed Sx; initial: quite a bit of difficulty. Treatment Plan: Modalities to reduce pain, spasms and effusion. Manual therapy to restore motion and function. Therapeutic exercise to improve strength and flexibility. Neuromuscular re-education for posture and balance. Therapeutic activities to return to functional activities of daily living. Electronically signed by: Lg Murguia PT. Please sign and return to therapist. Thank you for your referral.
--- NOTE | 2024-06-10 07:55 | MHC.PT.DC ---
[facility] [place] Office [place] Office [place] Office [address] Sangita Reyes [address] [phone] F: [phone] F: [phone] F: [phone] F: [phone] Physical Therapy Discharge Report Diagnosis: Other symptoms and signs involving musculoskeletal system. Sp instructions: eval and treat B hip ROM, gentle strengthening, gait training. Date of Surgery: Date of Evaluation: 01/22/24 Date of Discharge: 06/10/24 Treatments to Date: 20 Cancellations to Date: 5 No Shows to Date: Discharge Status: Patient Elected to Stop Recommend MD Follow-up Discharge Summary: Nilsa had attended 20 therapeutic visits with good motivation and participation in the clinic. She had cancelled the rest of her therapeutic visits and has not followed up with therapy and is discharged per attendance policy. During her course of therapy she demonstrated limited progress as she persisted with antalgic and compensated gait and demonstrated slow functional progress due to continued L hip pain. Electronically signed by: Lg Murguia PT. Please sign and return to therapist. Thank you for your referral.
== END 2024-06-10 07:54 | disposition home or self-care (01) ==
LOC: HO.PT 09:00
PROVIDERS: PCP Physician Assistant Medical; Visit Provider Orthopaedic Surgery
DX: R29.898 Other symptoms and signs involving the musculoskeletal system (principal)
CPT/HCPCS: 97110; 97112; 97140; 97161; 97164; 97530

== ENCOUNTER 2024-05-05 11:18 | Outpatient (AMB) | payer OTHER, SELFPAY ==
--- NOTE | 2024-05-05 11:23 | A.OFFVIS_ITS ---
Intake Visit Reasons: OV - follow up left hip Intake Note: Nilsa is a 59 year old female who presents with complaints of progressively worsening low back pain as well as ?shooting pain down her left leg. The patient did undergo left total hip replacement surgery on 11/02/2023 as well as washout of her left hip on 11/19/2023. The patient states that her symptoms have recently gotten significantly worse. The patient does walk with a cane. She also reports weakness in her left leg. She describes her back pain as sharp in nature. She has had difficulty sleeping. She has recently been started on gabapentin. She has been seen by Dr. Troncoso from [facility] and told that she may need to see a back specialist because of her pains. She has undergone a left hip MRI without contrast which showed a possible fluid collection around her left sciatic nerve. She is supposed to undergo an MRI with contrast of her left hip in June. Allergies Penicillins Allergy (Intermediate, Verified 05/05/24 11:23) Hives tramadol Adverse Reaction (Intermediate, Verified 05/05/24 11:23) Hives Medication List - Last Reconciled 05/05/24 by Bear Bell MD acetaminophen 975 mg (3 x 325 mg) PO Q6H PRN 30 days clindamycin HCl 600 mg (2 x 300 mg) PO ONCE cyclobenzaprine 5 mg PO TID PRN fiber 1 tab PO DAILY lorazepam 0.5 mg PO Q6H PRN 7 days multivitamin 1 tab PO DAILY nitroglycerin 0.4 mg sublingual Q5M PRN polyethylene glycol 3350 17 grams PO DAILY 30 days [Raised toliet seat As directed] sertraline 50 mg PO DAILY valacyclovir 1,000 mg PO DAILY PRN walker Folding front wheeled walker [facility] Medical History Anemia Cellulitis of left leg Osteoarthritis of left hip Osteoarthritis Atherosclerotic cardiovascular disease Surgical History Hx of colonoscopy Family History Father Heart attack Lung cancer History of quadruple bypass Mother Afib H/O heart artery stent S/P ablation of atrial fibrillation Social History (Updated 02/02/24 @ 11:16 by Bjorn Goodman) Household Members: Family Housing: House Are you a primary career center advisor to a significant other at home: No Do you presently have visiting nurse or other home services: Yes Alcohol intake: current Alcohol intake frequency: a few times a month Comment: Patient refusing all high fall risk interventions. 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 Thus, I will send the patient for an MRI of her lumbar spine for further evaluation. If she does have significant lumbar pathology I will refer her to a back specialist for further evaluation. She will contact me prior to the MRI should her symptoms worsen in any way. I spent 21 minutes in reviewing the patient's records and imaging studies, seeing the patient and documenting in the medical record. Orders: Orders MR lumbar spine wo con Today M54.50 - Low back pain, unspecified, M79.605 - Pain in left leg Coding Level of Care Code Est Pt Level 3 (43772) Diagnoses Low back pain radiating to left leg M54.50; M79.605
== END 2024-05-05 12:13 | disposition home or self-care (01) ==
PROVIDERS: PCP Physician Assistant Medical; Visit Provider Orthopaedic Surgery
DX: M54.50 Low back pain, unspecified (principal); M79.605 Pain in left leg; Z96.642 Presence of left artificial hip joint
CPT/HCPCS: 99214

== ENCOUNTER → 2024-05-05 11:18 | Outpatient (BNVA) | payer OTHER, SELFPAY | PROVIDERS: PCP Physician Assistant Medical; Visit Provider Orthopaedic Surgery ==

== ENCOUNTER 2024-05-10 20:18 | Outpatient (REF) | payer OTHER, SELFPAY ==
--- NOTE | ~2024-05-10 | MR_ITS ---
EXAMINATION: MR LUMBAR SPINE WITHOUT CONTRAST CLINICAL INFORMATION: 59-year-old with low back pain. Soft reported extreme pain down leg when walking and sleep. Side not specified. COMPARISON: None available. TECHNIQUE: MRI of the lumbar spine was obtained using routine sequences without contrast. FINDINGS: Coronal Alignment: Normal. Sagittal Alignment: There is trace retrolisthesis at L2-L3 and L1-L2. There is trace anterolisthesis at L3-L4 without spondylolysis. Otherwise normal lumbosacral alignment. Lumbosacral Junction: Normal. There are 5 ctl-lgs-vozzxem lumbar-type vertebral bodies. Vertebral Bodies: Vertebral body heights are well-maintained. Disc Spaces and Endplates: There is bimi-kl-pbwcciiw disc space height loss at L1-L2 with a Schmorl's node along the inferior endplate of L2 and mild spondylosis with mild intradiscal degenerative signal changes. There is enss-bw-qiekksqe disc space height loss at T12-L1 with a Schmorl's node along the inferior endplate of T12 with intradiscal loss of T2-weighted signal and fiss-wl-cxcdfixo anterior marginal spondylosis. There is mild loss of intradiscal T2 weighted signal with slight disc volume loss at L2-L3 and mild spondylosis. There is loss of intradiscal T2-weighted signal at L3-L4 and to a lesser degree at L4-L5 and L5-S1 with normal disc space height at these levels and minor spondylosis. Spinal Canal: No abnormal developmental findings. Bone Marrow: No suspicious marrow-replacing process or bone marrow edema. There is a 3 cm benign vertebral hemangioma on the left side of the L2 vertebral body and a subcentimeter benign vertebral hemangioma in the L5 vertebral body. Conus Medullaris: Terminates at T12. Morphology and signal is normal. Intradural Nerve Roots: Within normal limits. L5-S1: There is mild disc bulging with a right paramedian annular fissure. There is mild facet joint arthrosis, left more than right. No canal or neuroforaminal stenosis and no evidence for neural impingement. L4-L5: Mild annular bulging noted with slight indentation of the ventral thecal sac. Moderate right and mild left-sided facet joint arthrosis noted without canal stenosis. No significant neural foraminal stenosis. No definite neural impingement. L3-L4: Slight unroofing of the posterior disc margin consistent with mild grade 1 anterolisthesis, with superimposed concentric disc bulging and bilateral posterolateral annular fissuring. There is wbpb-tl-cfgyfunc flattening the ventral dural sac and there is ligamentum flavum thickening with moderate bilateral facet joint arthrosis, left more than right, with bilateral facet joint effusions. Mild central canal stenosis is noted, with the mild left and moderate right subarticular recess narrowing without definite neural impingement. Mild foraminal narrowing is noted on the left without neural impingement. L2-L3: Slight retrolisthesis with disc bulging and bilateral foraminal/extraforaminal disc protrusions, right more than left. Flattening of the ventral dural sac is noted with ligamentum flavum thickening, prominent dorsal fat pad and predominantly qkbm-gb-nzoojlum facet joint arthrosis, right more than left. Mild central canal stenosis is noted, with exoi-ff-xzvbgsmp bilateral subarticular recess stenosis and minor foraminal narrowing, right more than left without definite neural impingement. L1-L2: Trace retrolisthesis, with shallow broad-based central disc protrusion and mild indentation of the ventral thecal sac. Mild ligamentum flavum thickening with minor right and mild left-sided facet joint arthropathy without significant canal or neuroforaminal stenosis. T12-L1: No significant disc bulge or herniation. No significant facet joint arthrosis, canal or neuroforaminal stenosis. Paravertebral and Included Extraspinal Soft Tissues: The visualized paravertebral soft tissues and included retroperitoneal structures are unremarkable within the limitations of the exam. MR/MR lumbar spine wo con IMPRESSION: 1. Mild grade 1 degenerative spondylolisthesis at L3-L4 and trace retrolisthesis at L1-L2 and L2-L3. 2. Multilevel discogenic degenerative changes and spondylosis, with multilevel disc bulging and lateral disc protrusions, as described above, with multilevel bilateral facet joint arthrosis and ligamentum flavum thickening. 3. Mild spinal canal stenosis at L3-L4 and L2-L3. Rors-xe-anmvqhmn subarticular recess stenosis at L2-L3 and L3-L4 as discussed above. 4. Mild foraminal narrowing on the left at L3-L4 without neural impingement. Electronically signed by: Wayne Neville MD 05/20/2024 04:08 PM EDT
== END 2024-05-10 20:19 | disposition home or self-care (01) ==
LOC: HO.MRI 20:18
PROVIDERS: Visit Provider Orthopaedic Surgery
DX: M54.50 Low back pain, unspecified (principal); M79.605 Pain in left leg
CPT/HCPCS: 72148

== ENCOUNTER 2024-05-24 08:48 | Outpatient (REF) | payer OTHER, SELFPAY | END 2024-05-24 08:49 | disposition home or self-care (01) | LOC: HO.HOSX 08:48 | PROVIDERS: Visit Provider Orthopaedic Surgery | DX: M18.11 Unilateral primary osteoarthritis of first carpometacarpal joint, right hand (principal); M65.341 Trigger finger, right ring finger | CPT/HCPCS: 20550; J1100 ==

== ENCOUNTER 2024-05-24 10:21 | Outpatient (REF) | payer OTHER, SELFPAY ==
--- NOTE | ~2024-05-24 | XR_ITS ---
EXAMINATION: XR HAND, RIGHT CLINICAL INFORMATION: Right hand pain. COMPARISON: None available. TECHNIQUE: PA, lateral, and oblique views of the right hand. FINDINGS: Moderate osteoarthritis in the 1st CMC joint with nonuniform joint space narrowing, marginal osteophytes, and articular sclerosis. More mild osteoarthritis in the triscaphe and 1st CMC joints. Mild osteoarthritis is also noted in the DIP joints. No erosions. Bone mineralization is normal. Soft tissues are unremarkable. XR/XR hand RT min 3V IMPRESSION: Moderate osteoarthritis in the 1st CMC joint. More mild osteoarthritis in the triscaphe and 1st CMC joints. Electronically signed by: Ron Campos MD 05/27/2024 02:51 PM EDT RP
== END 2024-05-24 10:22 | disposition home or self-care (01) ==
LOC: HO.XRAY 10:21
PROVIDERS: PCP Physician Assistant Medical; Visit Provider Orthopaedic Surgery
DX: M79.641 Pain in right hand (principal)
CPT/HCPCS: 73130

== ENCOUNTER 2024-05-24 10:53 | Outpatient (AMB) | payer OTHER, SELFPAY ==
[2024-05-24 10:58] VITALS: BMI 27.5
--- NOTE | 2024-05-24 10:58 | A.OFFVIS_ITS ---
Vital Signs 05/24/24 10:58 Height 5 ft 4 in Weight 160 lb BMI 27.5 Intake Visit Reasons: NewProb- Rt hand pain, thumb and pointer finger Intake Note: Nilsa is a 59 yo right hand dominant female who presents today for a new problem visit related to right hand pain that began after having hip surgery, October,. Patient states since her hip surgery she has been using a cane developing a new onset of right ring finger lock on. She also complains today of right basal joint pain. Denies any prior injuries or surgeries to the right hand. Patient would like injection today, if possible. Allergies Penicillins Allergy (Intermediate, Verified 05/24/24 11:01) Hives tramadol Adverse Reaction (Intermediate, Verified 05/24/24 11:01) Hives HPI HPI NewProb- Rt hand pain, thumb and pointer finger: Details: Nilsa is a 59 year old right hand dominant woman who presents with complaints of right hand pain. Her chief complaint today is of painful locking of her right ring finger. She also complains of pain at the base of her right thumb. She says her finger locks primarily while she is sleeping, and she has been wearing a finger splint at night. She has pain with gripping activities, or when bracing herself with her cane. She says she had her left hip replaced on 11/02/[address] Bell, and has been walking with a cane since. She says she developed this pain & locking when she started using her cane. She denies any numbness, tingling, injury, or prior treatment. [facility] Medical History Anemia Cellulitis of left leg Osteoarthritis of left hip Osteoarthritis Atherosclerotic cardiovascular disease Surgical History Hx of colonoscopy Family History Father Heart attack Lung cancer History of quadruple bypass Mother Afib H/O heart artery stent S/P ablation of atrial fibrillation Social History (Updated 05/24/24 @ 11:01 by FAWAD Amador) Household Members: Family Housing: House Are you a primary personal care service provider to a significant other at home: No Do you presently have visiting nurse or other home services: Yes Alcohol intake: current Alcohol intake frequency: a few times a month Comment: Patient refusing all high fall risk interventions. 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 Review of Systems Const All systems reviewed & are unremarkable except as noted in HPI and below Physical Exam Vital Signs: BMI result Body Mass Index 27.5 Const General: cooperative, healthy appearing and no acute distress Orientation/consciousness: patient oriented x3 HEENT Head: Yes normocephalic and Yes atraumatic Eyes EOM: EOMs intact bilaterally Resp Effort & Inspection: normal respiratory effort and able to speak in complete sentences Cardio Jugular venous distension: no JVD Skin General skin exam: turgor normal Rashes: no rashes Neuro General: patient oriented x3 Extrem Other: Evaluation of Right Upper Extremity: The patient is alert, oriented, and in no acute distress Neuro: Median, Ulnar, Radial nerves motor and sensory intact and sensation is normal to the tips of all digits Vascular: Cap refill brisk ROM: She can make a fist and extend all her digits Visible and palpable locking & catching of the ring finger Tender over the a1 taylor of the ring finger Skin: No lacerations or abrasions. General: No Ecchymosis. No Erythema or evidence of infection. Tender over the basal joint + CMC grind No tenderness over the 1st dorsal compartment No tenderness over the thumb a1 taylor Radiographs: 3 views of the right hand were taken and viewed by me today in clinic. They show no fractures or dislocations. She has some basal joint osteoarthitis, with joint space narrowing, osteophyte formation, and subchondral sclerosis. Psych Appearance: grossly normal Affect: normal affect Attitude: cooperative Office Procedures Fracture Care Details: No fracture, injection Fracture Billing Code: Fracture Billing Code Assessment & Plan Assessment & Plan (1) Arthritis of carpometacarpal (CMC) joint of right thumb: Code(s): M18.11 - Unilateral primary osteoarthritis of first carpometacarpal joint, right hand Category: Medical (2) Trigger finger, right ring finger: Code(s): M65.341 - Trigger finger, right ring finger Category: Medical Plan Assessment & Plan: 1. Right ring finger trigger finger I educated her about these conditions I discussed operative and non-operative treatment options The patient would like to proceed with an injection Injection #1: The risks and benefits of a steroid injection including but not limited to risk of damage to blood vessels, nerves, tendons, infection, skin bleaching, failure to improve symptoms, increased pain, and possible need for further injections or other intervention were discussed with the patient and the patient wishes to proceed with the steroid injection. Once consent was obtained, I sterilely prepped the area over the A1 taylor of the flexor tendon sheath of the Right ring finger. I then injected the flexor tendon sheath with a combination of 1 mL of dexamethasone (4mg/ml), and 1% lidocaine. The patient tolerated the procedure well with no complications. If the patient continues to have locking and catching 4-6 weeks following this injection, they may call to schedule appointment to discuss alternative treatment options 2. Right Basal joint arthritis I educated her about this condition I discussed operative and non-operative treatment options I discussed activity modification, they should limit or avoid any heavy or repetitive pinching or gripping activities She was fitted for a comfort cool brace to wear with daily activity If her symptoms persist or worsen she can follow up to discuss possible steroid injections. Scribed for pOal Sears MD by Jeremi Hargrove, senior medical writer, on 05/24/24 at 11:35 AM, EST. Orders: Orders XR hand RT min 3V Today M79.641 - Pain in right hand Coding Level of Care Code Est Pt Level 3 (53231) Diagnoses Arthritis of carpometacarpal (CMC) joint of right thumb M18.11 Trigger finger, right ring finger M65.341 CPT Codes Fracture Care - Fracture Billing Code: Fracture Billing Code ([id number])
== END 2024-05-24 12:32 | disposition home or self-care (01) ==
PROVIDERS: PCP Physician Assistant Medical; Visit Provider Orthopaedic Surgery
DX: M18.11 Unilateral primary osteoarthritis of first carpometacarpal joint, right hand (principal); M65.341 Trigger finger, right ring finger
CPT/HCPCS: 20550; 99213

== ENCOUNTER 2024-05-30 09:34 | Outpatient (AMB) | payer OTHER, SELFPAY ==
--- NOTE | 2024-05-30 09:38 | A.SPINEOV_ITS ---
Intake Visit Reasons: low back pain radiating to both legs Intake Note: Ms. Leung is here today c/o low back pain. Sales Representative Education Courses Required: No Allergies Penicillins Allergy (Intermediate, Verified 05/24/24 11:01) Hives tramadol Adverse Reaction (Intermediate, Verified 05/24/24 11:01) Hives Assessment & Plan Assessment & Plan (1) Low back pain radiating to left leg: Code(s): M54.50 - Low back pain, unspecified; M79.605 - Pain in left leg Category: Medical Plan Dear Dr Bell, Thank you for referring Mrs Leung to our office today. She is a very nice 59-year-old female who had hip replacement earlier this year, subsequently had an infection and washout who has been dealing with left hip pain persistent after the surgery. At some point along the process she did develop some back pain that was going down her legs. This ultimately resulted in workup and an MRI showing some degenerative issues and was sent today see us see if that was part of her pain problem. Right now she is taking Celebrex and that seems to be keeping some of her back pain away. In general though the main pain she is having his in the left hip when she is walking. She has developed the pain that is going into her right anterior hip region as well now. She has not sure if this is just because of the way she is walking with a cane or has been compensating over the course of the last 7 or 8 months. Currently, she has not feeling any of the pain shooting down her legs that she had few months back. PMH: She is very healthy, D only medical issue she has had is the left hip replacement. She also had a DVT after that as well. Social hx: She does not smoke, drink or use any recreational drugs Medications: Zoloft, Celebrex, valacyclovir, Tylenol, ibuprofen, fiber gummies, Ativan, gabapentin Allergies: Penicillin gives her hives Physical exam: She is awake alert oriented no acute distress, she is able to stand up out of her own from a chair, she does walk with antalgic gait. She does have pain with internal and external rotation of her left hip. Motor exam is intact. Imaging review: She is a lumbar MRI done here at [place], showing some very mild degeneration of her discs, but nothing severe and no evidence of misalignment. The radiology report suggesting that there is a spondylolisthesis at multiple levels but I do not agree with this radiology read. She has absolutely no central canal stenosis either and there is no foraminal stenosis. Impression: 59-year-old female presents for persistent pains after a left hip replacement. The patient has had continuous trouble walking with pain in her left hip, now has pain going into her right anterior groin region. A few months ago she was having some back pain that was going down her legs into her hamstrings but this is for the most part gone away. The patient thinks there may be some degree of compensation because of the pain in the left hip causing the right hip to also feel discomfort. In terms of her overall back anatomy and spinal alignment, she has just very mild degeneration and I disagree with the radiology report that there are multiple areas of spondylolisthesis and degeneration. Overall her disc health looks very good for her age and her previous activity levels. She also has no significant central canal or foraminal stenosis that would explain pain down the legs. I do not think any of the pain she is currently having has anything to do with her lumbar spine. She certainly needs no surgery on our end. I hope this helps clarify some of her issues. Thank you for allowing us to care for your patient. The total time spent with this visit with this patient was 45 minutes reviewing history, physical exam, lumbar imaging review, and implementation of treatment plan or further diagnostic testing Santiago Moore MD,PhD [facility] Coding Level of Care Code New Pt Level 4 (39502) Diagnoses Low back pain radiating to left leg M54.50; M79.605
== END 2024-05-30 10:09 | disposition home or self-care (01) ==
PROVIDERS: PCP Physician Assistant Medical; Referring Provider Orthopaedic Surgery; Visit Provider Physician Assistant
DX: M54.50 Low back pain, unspecified (principal); M79.605 Pain in left leg
CPT/HCPCS: 99204

== ENCOUNTER → 2024-05-30 09:34 | Outpatient (BNVA) | payer OTHER, SELFPAY | PROVIDERS: PCP Physician Assistant Medical; Visit Provider Physician Assistant ==

== ENCOUNTER 2024-06-21 11:14 | Outpatient (REF) | payer OTHER, SELFPAY ==
[2024-06-21 11:41] LABS: MANUAL DIFF FLAG NO
[2024-06-21 12:27] LABS: Basophils Absolute Auto 0.1 X10*3/uL (0.0-0.2); Basophils Percent Auto 0.7 % (0-2); Eosinophils Absolute Auto 0.1 X10*3/uL (0.0-0.4); Eosinophils Percent Auto 1.3 % (0-4); Hematocrit 40.8 % (37.0-47.0); Hemoglobin 13.4 g/dl (12.0-16.0); Imm Gran Abs Auto 0.02 X10*3/uL (0.00-0.03); Imm Gran Pct Auto 0.3 % (0.0-0.4); Lymphocytes Percent Auto 29.6 % (20-40); Mean Corpuscular HGB Conc 32.8 g/dl (31.0-35.0); Mean Corpuscular Hemoglobin 25.9 pg (27.0-33.0); Mean Corpuscular Volume 78.9 fL (80.0-98.0); Mean Platelet Volume 10.8 fL (9.4-12.3); Monocytes Absolute Auto 0.5 X10*3/uL (0.1-1.2); Monocytes Percent Auto 6.9 % (2-11); Neutrophils Absolute Auto 4.2 x10*3/uL (2.0-8.3); Neutrophils Percent Auto 61.2 % (45-73); Platelet Count 254 X10*3/uL (160-400); Red Blood Count 5.17 X10*6/uL (4.20-5.50); Red Cell Distribution Width 14.6 % (11.0-16.0); White Blood Count 6.9 X10*3/uL (4.8-10.8)
[2024-06-21 13:14] LABS: Erythrocyte Sedimentation Rate 6 MM/HR (0-20)
== END 2024-06-21 11:15 | disposition home or self-care (01) ==
LOC: HO.LAB 11:14
PROVIDERS: PCP Physician Assistant Medical; Visit Provider Orthopaedic Surgery
DX: T84.59XD Infection and inflammatory reaction due to other internal joint prosthesis, subsequent encounter (principal); Z96.649 Presence of unspecified artificial hip joint
CPT/HCPCS: 36415; 85025; 85652; 86140

== ENCOUNTER 2024-07-06 07:37 | Outpatient (REF) | payer OTHER, SELFPAY ==
--- NOTE | ~2024-07-06 | CT_ITS ---
EXAMINATION: CT HIP WITHOUT CONTRAST, LEFT CLINICAL INFORMATION: Chronic hip pain status post total hip replacement COMPARISON: X-rays of the left hip December 2023. CT scan of the left femur October 2023 TECHNIQUE: Multidetector volumetric imaging was obtained through the left hip without contrast material. Multiplanar reformatted images were submitted in coronal and sagittal planes. This CT examination was performed using dose optimization techniques as appropriate, variously including the following: *Automated exposure control *Adjustment of mA and/or kV according to patient size (this includes techniques or standardized protocols for targeted exams where dose is matched to indication/reason for exam; i.e. extremities or head) *Use of iterative reconstruction technique DLP: 454 mGy centimeter FINDINGS: Postoperative changes related to left total hip arthroplasty noted with the components in usual in unchanged position with usual appearance and unchanged.. Cerclage wire noted in the subtrochanteric portion of the femur unchanged. No periprosthetic lucency or fracture identified. There is a slightly irregular but prominently transverse linear lucency extending from the skin to the fascia overlying the gluteal muscles and tensor fascia jemal compatible with postoperative fibrosis/scarring related to prior surgery. The previously noted fluid collection seen on the CAT scan October 2023 is no longer present. There is a low-density mass/masslike collection abutting the posterior aspect of the subtrochanteric portion of the femur in juxtaposed between the gluteus geneva, quadratus femoris, fascia of the adductor compartment, and proximal hamstring tendon muscle. There is also appears to displace or arise from the sciatic nerve. Favor posterior displacement of the nerve. This mass/masslike collection measures 3.5 cm transverse 3.2 cm AP and 4.5 cm craniocaudal. The density is consistent with simple fluid. This was present previously although not as well-demonstrated part because of the metallic artifact . On the prior examination this measures 2.6 cm transverse 2.8 cm AP and 3.7 cm craniocaudal. No additional findings. CT/CT hip LT wo IV con IMPRESSION: Postoperative changes related to left total hip arthroplasty which appears intact with usual appearance and unchanged compared to prior. The previously noted fluid collection noted laterally subcutaneous soft tissues is no longer present. However there is a mass/masslike fluid collection abutting the posterior aspect of the subtrochanteric portion of the femur as detailed above. This appears to result in mass effect on the sciatic nerve rather than arising from the nerve.. Etiology not determined. It is possible this could reflect a para-articular fluid collection communicating with caudal aspect of the joint. However unrelated soft tissue masses could have this appearance. This was present on the prior examination but not as well visualized in part related to the metallic artifact. Suspect this may be increase in size compared to prior although exact comparison is limited as the because the mass is not as well seen previously. Consider follow-up imaging with MRI of the left hip without and with contrast using metal artifact reduction sequences even though artifact may still limit evaluation Electronically signed by: Tyrell Kenny MD 07/11/2024 02:49 PM EDT
== END 2024-07-06 07:38 | disposition home or self-care (01) ==
LOC: HO.CT 07:37
PROVIDERS: PCP Physician Assistant Medical; Visit Provider Orthopaedic Surgery
DX: Z96.642 Presence of left artificial hip joint (principal)
CPT/HCPCS: 73700